=== PATIENT | female | born 1935 | race Hispanic/Latino ===

== ENCOUNTER 2016-11-07 21:43 | Inpatient (IN) | payer MEDICARE, OTHER ==
[2016-11-07 21:52] VITALS: BMI 16.8
--- NOTE | 2016-11-07 22:42 | ED PDOC ---
Arrival/HPI - General Historian: Patient, Snf, EMS <Deng Collier - Last Filed: 11/08/16 01:25> <Ranjit Martinez - Last Filed: 11/08/16 05:44> - General Chief Complaint: Lower Extremity Problem/Injury Time Seen by Provider: 11/07/16 21:56 - History of Present Illness Narrative History of Present Illness (Text): 11/07/16 22:35 81 y/o female hx Afib on coumadin, HTN, HLD, dementia presenting from residential with reports right distal extremity pain, swelling and bruising. Per residential/EMS patient may or may not have sustained a fall at some point in the last few days prior to arrival. Patient is a poor historian due to hx of dementia. Patient denies numbness or tingling to the distal right extremity. She further denies hip or back pain. She is oriented to person. 11/07/16 22:36 (Deng Collier) Past Medical History - Infectious Disease Hx of Infectious Diseases: None - Tetanus Immunization Tetanus Immunization: Unknown - Cardiac Hx Cardiac Disorders: Yes (A-fib) Hx Hypertension: Yes - Pulmonary Hx Respiratory Disorders: No - Neurological Hx Neurological Disorder: No Hx Dementia: Yes - HEENT Hx HEENT Disorder: No - Renal Hx Renal Disorder: No - Endocrine/Metabolic Hx Diabetes Mellitus Type 1: Yes - Hematological/Oncological Hx Blood Disorders: No - Integumentary Hx Dermatological Disorder: No - Musculoskeletal/Rheumatological Hx Arthritis: Yes Hx Osteoporosis: Yes - Gastrointestinal Hx Gastroesophageal Reflux: Yes - Genitourinary/Gynecological Hx Incontinence: Yes - Psychiatric Hx Substance Use: No Other/Comment: dementia - Surgical History Hx Orthopedic Surgery: Yes - Anesthesia Hx Anesthesia Reactions: No Hx Malignant Hyperthermia: No <Deng Collier - Last Filed: 11/08/16 01:25> - Provider Review Nursing Documentation Reviewed: Yes <Ranjit Martinez - Last Filed: 11/08/16 05:44> Family/Social History Smoking Status: Never Smoked Hx Alcohol Use: No Hx Substance Use: No <Deng Collier - Last Filed: 11/08/16 01:25> - Physician Review Nursing Documentation Reviewed: Yes Family/Social History: No Known Family HX <Ranjit Martinez - Last Filed: 11/08/16 05:44> Allergies/Home Meds <Deng Collier - Last Filed: 11/08/16 01:25> <Ranjit Martinez - Last Filed: 11/08/16 05:44> Allergies/Adverse Reactions: Allergies strawberry Adverse Reaction (Verified 11/07/16 21:58) SWELLING Home Medications: Home Meds Medication Instructions Recorded Confirmed Acetaminophen [Tylenol] 650 mg PO Q6H PRN 11/26/15 11/07/16 Calcium Carbonate/Vitamin D3 1 tab PO DAILY 11/26/15 11/07/16 [Os-Richie 500-Vit D3 200 Caplet] Donepezil [Aricept] 10 mg PO HS 11/26/15 11/07/16 Escitalopram [Lexapro] 10 mg PO DAILY 11/26/15 11/07/16 Famotidine [Pepcid] 20 mg PO BID 11/26/15 11/07/16 Furosemide 20 mg PO DAILY 11/26/15 11/26/15 Metoprolol Tartrate [Lopressor] 50 mg PO BID 11/26/15 11/07/16 Ramipril 5 mg PO DAILY 11/26/15 11/07/16 Simvastatin 40 mg PO HS 11/26/15 11/07/16 Warfarin [Coumadin] 2.5 mg PO TTS 11/26/15 11/07/16 Cyproheptadine HCl 4 mg PO TID 11/07/16 11/07/16 Docusate [Colace] 100 mg PO HS 11/07/16 11/07/16 Warfarin Sodium [Jantoven] 5 mg PO SUN 11/07/16 11/07/16 Review of Systems - Review of Systems Systems not reviewed;Unavailable: Dementia Respiratory: absent: SOB Cardiovascular: absent: Chest Pain Musculoskeletal: Other (right distal leg tenderness, hematoma ) Skin: Other (hematoma left medial distal leg ). absent: Skin Lesions, Laceration <Deng Collier - Last Filed: 11/08/16 01:25> Physical Exam Mental Status: No: Alert and Oriented X 3 (oriented to person ) - Systems Exam Head: Present: Atraumatic, Normocephalic Pupils: Present: PERRL Extroacular Muscles: Present: EOMI Conjunctiva: Present: Normal Mouth: Present: Dry Pharnyx: Present: Normal Respiratory/Chest: No: Respiratory Distress, Wheezes, Rales, Rhonchi Cardiovascular: Present: Regular Rate and Rhythm, Normal S1, S2 Abdomen: Present: Normal Bowel Sounds. No: Tenderness, Distention Upper Extremity: Present: Normal Inspection Lower Extremity: Present: CALF TENDERNESS (left). No: Normal Inspection (4x4 cm hematoma left distal leg ) Neurological: Present: Speech Normal Psychiatric: Present: Alert, Normal Insight. No: Oriented x 3 <Deng Collier - Last Filed: 11/08/16 01:25> Vital Signs Temp Pulse Resp BP Pulse Ox 11/08/16 04:00 76 17 114/65 99 11/08/16 03:54 82 11/08/16 03:51 82 18 100 11/08/16 03:42 77 21 118/73 100 11/08/16 01:44 75 20 121/78 99 11/07/16 21:44 97.5 F L 53 L 16 120/85 100 Medical Decision Making <Deng Collier - Last Filed: 11/08/16 01:25> <Ranjit Martinez - Last Filed: 11/08/16 05:44> ED Course and Treatment: 11/07/16 22:49 81 y/o female with hx afib on coumadin, dementia presenting with right distal leg hematoma s/p fall at residential. - right tib-fib xray - PT/INR - routine labs - chest xray - EKG 11/08/16 00:12 -INR 11.00. Hgb 8.6 which is a drop from baseline - chest xray with active disease - right tib-fib xray negative for fracture (Deng Collier) 11/08/16 01:29 Patient seen and evaluated with resident. A 81 year old female who presents to the ed from residential for evaluation of bruising and tenderness to right lower extremity. Agree with HPI, clinical findings, plan and treatment. Coag shows INR of 11. Hgb of 8.6 which is lower than baseline. Patient will be admitted to the hospital under 's service. (Ranjit Martinez) - Lab Interpretations Lab Results: 11/07/16 23:08 11/07/16 23:08 Lab Results 11/07/16 23:08: WBC 12.7 H D, RBC 3.29 L, Hgb 8.6 L, Hct 27.4 L, MCV 83.3, MCH 26.1, MCHC 31.4, RDW 16.6 H, Plt Count 395, MPV 8.6, Gran % 81.6 H, Lymph % ( Auto) 9.5 L, Mathews % (Auto) 6.3 H, Eos % (Auto) 2.4, Baso % (Auto) 0.2, Gran # 10.35 H, Lymph # 1.2, Mathews # 0.8 H, Eos # 0.3, Baso # 0.03, PT > 120.0 H*, INR > 11.00 H*, Sodium 136, Potassium 4.5, Chloride 105, Carbon Dioxide 28, Anion Gap 8 L, BUN 31 H, Creatinine 1.3, Est GFR ( Amer) 48, Est GFR (Non-Af Amer) 39, Random Glucose 91, Calcium 8.6, Total Bilirubin 0.7, AST 52 H, ALT 25 , Alkaline Phosphatase 277 H, Total Protein 6.0, Albumin 2.3 L, Globulin 3.7, Albumin/Globulin Ratio 0.6 L - RAD Interpretation Radiology Orders: 11/07/16 22:31 CHEST ONE VIEW [RAD] Stat TIBIA FIBULA RIGHT [RAD] Stat - Medication Orders Current Medication Orders: Acetaminophen (Tylenol 325mg Tab) 650 mg PO Q6H PRN PRN Reason: Pain, Mild (1-3) Atorvastatin Calcium (Lipitor) 20 mg PO HS GERRI Cyproheptadine HCl (Periactin) 4 mg PO TID GERRI Docusate Sodium (Colace) 100 mg PO HS GERRI Donepezil HCl (Aricept) 10 mg PO HS GERRI Escitalopram Oxalate (Lexapro) 10 mg PO DAILY GERRI Famotidine (Pepcid) 20 mg PO BID GERRI Sodium Chloride (Sodium Chloride 0.9%) 1,000 mls @ 50 mls/hr IV .Q20H GERRI Last Admin: 11/08/16 02:49 Dose: 50 MLS/HR eMAR Start Stop Document 11/08/16 02:49 MR (Rec: 11/08/16 02:57 MR [id number]) Intravenous Solution Start Date 11/08/16 Start Time 02:49 Metoprolol Tartrate (Lopressor) 50 mg PO BID [facility] Non-Formulary Medication (Calcium Carbonate/Vitamin D3 [Os-Richie 500-Vit D3 200 Caplet]) 1 tab PO DAILY GERRI Polysaccharide Iron Complex (Ferrex-150) 150 mg PO DAILY GERRI Ramipril (Altace) 5 mg PO DAILY GERRI Discontinued Medications Phytonadione 10 mg/ Sodium (Chloride) 51 mls @ 100 mls/hr IV ONCE ONE Stop: 11/08/16 00:30 Last Admin: 11/08/16 00:43 Dose: 100 MLS/HR eMAR Start Stop Document 11/08/16 00:43 MR (Rec: 11/08/16 00:44 MR [id number]) Intravenous Solution Start Date 11/08/16 Start Time 00:43 End Date 11/08/16 End time 01:13 Total Infusion Time 30 <Deng Collier - Last Filed: 11/08/16 01:25> - PA / 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 / has examined the patient and agrees with the treatment plan. <Ranjit Martinez - Last Filed: 11/08/16 05:44> - Scribe Statement Marcie Andrews All medical record entries made by the Scribe were at my direction and personally dictated by me. I have reviewed the chart and agree that the record accurately reflects my personal performance of the history, physical exam, medical decision making, and the department course for this patient. I have also personally directed, reviewed, and agree with the discharge instructions and disposition. (Ranjit Martinez) Disposition/Present on Arrival - Present on Arrival History of DVT/PE: No History of Uncontrolled Diabetes: No Urinary Catheter: No History of Decub. Ulcer: No History Surgical Site Infection Following: None <Deng Collier - Last Filed: 11/08/16 01:25> <Ranjit Martinez - Last Filed: 11/08/16 05:44> - Disposition Disposition: HOSPITALIZED
[2016-11-07 23:21] LABS: ADD MANUAL DIFF? NO
[2016-11-07 23:26] LABS: BASO # 0.03 K/mm3 (0.0-2.0); BASO % 0.2 % (0.0-3.0); EOS # 0.3 (0.0-0.7); EOS % 2.4 % (1.5-5.0); GRAN # 10.35 (1.4-6.5); GRAN % 81.6 % (50.0-68.0); HEMATOCRIT 27.4 % (36.0-48.0); LYMPH # 1.2 (1.2-3.4); LYMPH % 9.5 % (22.0-35.0); MEAN CELL VOLUME 83.3 fL (80.0-105.0); MEAN CORPUSCULAR HEMOGLOBIN 26.1 pg (25.0-35.0); MEAN CORPUSCULAR HGB CONC 31.4 g/dl (31.0-37.0); MEAN PLATELET VOLUME 8.6 fl (7.0-11.0); MONO # 0.8 (0.1-0.6); MONO % 6.3 % (1.0-6.0); PLATELET COUNT 395 10^3/uL (120.0-450.0); RED CELL DISTRIBUTION WIDTH 16.6 % (11.5-14.5); WHITE BLOOD COUNT 12.7 10^3/ul (4.5-11.0)
[2016-11-07 23:33] LABS: ALB/GLOB RATIO 0.6 (1.1-1.8); BILIRUBIN,TOTAL 0.7 mg/dL (0.2-1.3); CALCIUM 8.6 mg/dL (8.4-10.5); POTASSIUM 4.5 mmol/L (3.6-5.0)
[2016-11-07 23:59] LABS: INR > 11.00 (0.93-1.08)
[2016-11-08] MEDS ORDERED: Phytonadione 10 MG in Sodium Chloride 0.9% 50 ML IV ONE
--- NOTE | 2016-11-08 02:38 | CP.PCM.HP ---
History of Present Illness - History of Present Illness History of Present Illness: CC: Left leg hematoma HPI: This is a 81 yo F with PMH of Afib on coumadin, HTN, HLD, and dementia who was [facility] from her [facility] due to newly noticed hematoma on posterior portion of left leg. HPI and ROS limited due to patient's dementia ( oriented to self only); information provided from documentation from prison sent with patient. No witnessed falls as per documentation, but patient has poor ambulation/weight bearing. Patient has no recollection of falls or traumatic event. Labs in the ED were notable for an INR greater than 11.0 and a Hgb of 8.6 (baseline per prior charting is 10-11). Patient denies any complaints currently. PMH: Afib on coumadin, HTN, HLD, dementia PSH: unknown PMD: Dr. Farrell Present on Admission - Present on Admission Any Indicators Present on Admission: No History of DVT/PE: No History of Uncontrolled Diabetes: No Review of Systems - Review of Systems Systems not reviewed;Unavailable: Dementia Past Patient History - Infectious Disease Hx of Infectious Diseases: None - Tetanus Immunizations Tetanus Immunization: Unknown - Past Medical History & Family History Past Medical History?: Yes - Past Social History Smoking Status: Never Smoked - CARDIAC Hx Cardiac Disorders: Yes (A-fib) Hx Hypertension: Yes - PULMONARY Hx Respiratory Disorders: No - NEUROLOGICAL Hx Neurological Disorder: No Hx Dementia: Yes - HEENT Hx HEENT Problems: No - RENAL Hx Chronic Kidney Disease: No - ENDOCRINE/METABOLIC Hx Diabetes Mellitus Type 1: Yes - HEMATOLOGICAL/ONCOLOGICAL Hx Blood Disorders: No - INTEGUMENTARY Hx Dermatological Problems: No - MUSCULOSKELETAL/RHEUMATOLOGICAL Hx Arthritis: Yes Hx Osteoporosis: Yes - GASTROINTESTINAL Hx Gastroesophageal Reflux: Yes - GENITOURINARY/GYNECOLOGICAL Hx Incontinence: Yes - PSYCHIATRIC Hx Substance Use: No Other/Comment: dementia - SURGICAL HISTORY Hx Orthopedic Surgery: Yes - ANESTHESIA Hx Anesthesia Reactions: No Hx Malignant Hyperthermia: No Meds Allergies/Adverse Reactions: Allergies Allergy/AdvReac Type Severity Reaction Status Date / Time strawberry AdvReac SWELLING Verified 11/07/16 21:58 Physical Exam - Constitutional Appears: Well, Non-toxic, No Acute Distress, Confused - Head Exam Head Exam: ATRAUMATIC, NORMAL INSPECTION, NORMOCEPHALIC - Eye Exam Eye Exam: Normal appearance, PERRL. absent: Conjunctival injection, Scleral icterus Pupil Exam: NORMAL ACCOMODATION, PERRL. absent: Fixed, Irregular, Unequal Additional comments: Does not follow finger for EOMI testing, but is able to move eyes in all [place] to avoid direct light challenge - ENT Exam ENT Exam: Mucous Membranes Moist - Neck Exam Neck exam: Negative for: Lymphadenopathy, Thyromegaly - Respiratory Exam Respiratory Exam: Clear to Auscultation Bilateral, NORMAL BREATHING PATTERN. absent: Accessory Muscle Use, Chest Wall Tenderness, Decreased Breath Sounds, Rales, Rhonchi, Wheezes - Cardiovascular Exam Cardiovascular Exam: REGULAR RHYTHM, RRR, +S1, +S2. absent: Bradycardia, Tachycardia, +S4 - GI/Abdominal Exam GI & Abdominal Exam: Normal Bowel Sounds, Soft. absent: Diminished Bowel Sounds , Hyperactive Bowel Sounds, Hypoactive Bowel Sounds, Tenderness - Rectal Exam Rectal Exam: Deferred - Extremities Exam Additional comments: Right leg: -No gross deformity -trace pitting edema extending from foot into mid alcala -+2 dorsalis pedis -no calf tenderness Left leg: -trace to +1 pitting edema (greater than in right leg) -hematoma along posterior and medial aspect of lower calf, approximately 6cm wide and 8-9cm height, all dark blood, no pulsation palpated in hematoma -+1 dorsalis pedis pulse -tenderness at and immediately around hematoma, no tenderness elsewhere in left lower extremity - Neurological Exam Neurological exam: Alert Additional comments: oriented to self only - Psychiatric Exam Psychiatric exam: Normal Affect, Normal Mood - Skin Skin Exam: Dry, Intact, Normal Color, Warm Additional comments: except for hematoma, as noted in extremity exam Results - Vital Signs Recent Vital Signs: Last Vital Signs Temp 97.5 F L 11/07/16 21:44 Pulse 53 L 11/07/16 21:44 Resp 16 11/07/16 21:44 BP 120/85 11/07/16 21:44 Pulse Ox 100 11/07/16 21:44 - Labs Result Diagrams: 11/07/16 23:08 11/07/16 23:08 Labs: Laboratory Results - last 24 hr 11/07/16 23:08 WBC 12.7 H D RBC 3.29 L Hgb 8.6 L Hct 27.4 L MCV 83.3 MCH 26.1 MCHC 31.4 RDW 16.6 H Plt Count 395 MPV 8.6 Gran % 81.6 H Lymph % (Auto) 9.5 L [place] % (Auto) 6.3 H Eos % (Auto) 2.4 Baso % (Auto) 0.2 Gran # 10.35 H Lymph # 1.2 [place] # 0.8 H Eos # 0.3 Baso # 0.03 PT > 120.0 H* INR > 11.00 H* Sodium 136 Potassium 4.5 Chloride 105 Carbon Dioxide 28 Anion Gap 8 L BUN 31 H Creatinine 1.3 Est GFR ( Amer) 48 Est GFR (Non-Af Amer) 39 Random Glucose 91 Calcium 8.6 Total Bilirubin 0.7 AST 52 H ALT 25 Alkaline Phosphatase 277 H Total Protein 6.0 Albumin 2.3 L Globulin 3.7 Albumin/Globulin Ratio 0.6 L Assessment & Plan - Assessment and Plan (Free Text) Assessment: This is a 81 yo F with PMH of Afib on coumadin, HTN, HLD, and dementia who was sent from her prison due to newly noticed hematoma on posterior portion of left leg. She is being admitted for hematoma in the setting of supratherapeutic INR (>11.0) in need of reversal and possible need for blood transfusions. Plan: 1) Hematoma with Supratherapeutic INR -Stable hematoma in posterior of left lower extremity, no reported trauma as per prison documentation, but poor gait/weight bearing noted -PT/OT consulted -Holding home Warfarin, given 1 dose of Vit K -Type and Screen ordered, FFP 1 unit ordered -repeat coags in AM, further Vit K/FFP based upon repeat coags or if patient develops acute bleed -Hgb 8.6, baseline per prior charting 10-11; hemodynamically stable currently, will repeat CBC in AM, no need to transfuse pRBCs at this time -HR and BP stable currently, continue to monitor 2) Afib on coumadin -Currently in NSR on exam, Sinus marilou on EKG in ED -Supratherapeutic INR on labs, holding home warfarin -continuing other home cardiac medications 3) HTN -pressures stable, continuing home anti-hypertensives 4) Dementia -continue home meds Dispo: Admitted as inpatient to telemetry for reversal of supratherapeutic INR and further transfusions as needed FEN: Heart-healthy diet, NS 50cc/hr Access: Peripheral IV Consults: PT/OT Ppx: Protonix for GI, SCD for DVT Code Status: DNR/DNI per charting from halfway Patient discussed with attending, Dr. Amaya - Date & Time Date: 11/08/16 Time: 03:45 Decision To Admit - Pt Status Changed To: Hospital Disposition Of: Inpatient Admission - Admit Certification Admit to Inpatient:: After my assessment, the patient will require hospitalization for at least two midnights. This is because of the severity of symptoms shown, intensity of services needed, and/or the medical risk in this patient being treated as an outpatient. - . Bed Request Type: Telemetry
[2016-11-08] MEDS: Sodium Chloride 0.9% 1,000 ML IV SCH ×2 (02:49→22:30)
--- NOTE | 2016-11-08 07:42 | RAD ---
PROCEDURE: CHEST RADIOGRAPH, 1 VIEW HISTORY: routine COMPARISON: 04/11/2016 at 9:30 p.m. FINDINGS: LUNGS: Clear. PLEURA: No pneumothorax . Interval small right pleural effusion Pleural fluid seen. CARDIOVASCULAR: Normal. Left axillary vascular stent -similar OSSEOUS STRUCTURES: Severe dextroscoliosis, generalized osteopenia, multiple old healed right rib fractures and high-riding right humeral head consistent right chronic rotator cuff pathology. Left shoulder prosthesis in place-similar VISUALIZED UPPER ABDOMEN: Normal. OTHER FINDINGS: Probable hernia -similar IMPRESSION: Interval small right pleural effusion. Other findings as above similar
--- NOTE | 2016-11-08 07:44 | RAD ---
PROCEDURE: Radiographs of the right tibia and fibula. HISTORY: hx trauma COMPARISON: None available. TECHNIQUE: Frontal and lateral views obtained. FINDINGS: BONES: No fracture or destructive lesion. Generalized osteopenia suggested JOINT SPACES: Unremarkable. OTHER FINDINGS: There is diffuse subcutaneous reticulated edema suggested. Few faint vascular calcifications are noted IMPRESSION: No fracture.
[2016-11-08 08:35] LABS: ADD MANUAL DIFF? NO
[2016-11-08 08:41] LABS: BASO % 0.2 % (0.0-3.0); EOS % 0.3 % (1.5-5.0); RED CELL DISTRIBUTION WIDTH 16.4 % (11.5-14.5); WHITE BLOOD COUNT 12.4 10^3/ul (4.5-11.0)
[2016-11-08 08:49] LABS: INR 1.92 (0.93-1.08); PARTIAL THROMBOPLASTIN TIME 42.9 Seconds (23.7-30.8)
[2016-11-08 08:53] LABS: ALB/GLOB RATIO 0.7 (1.1-1.8); BILIRUBIN,TOTAL 0.8 mg/dL (0.2-1.3); CALCIUM 8.7 mg/dL (8.4-10.5); MAGNESIUM 2.1 mg/dL (1.7-2.2); PHOSPHOROUS 3.6 mg/dL (2.5-4.5); POTASSIUM 4.5 mmol/L (3.6-5.0); TOTAL PROTEIN 5.7 g/dL (5.8-8.3)
[2016-11-08 08:59] LABS: BASO # 0.03 K/mm3 (0.0-2.0); GRAN # 11.01 (1.4-6.5); GRAN % 88.8 % (50.0-68.0); LYMPH # 0.7 (1.2-3.4); LYMPH % 5.5 % (22.0-35.0); MEAN CELL VOLUME 82.7 fL (80.0-105.0); MEAN CORPUSCULAR HEMOGLOBIN 26.4 pg (25.0-35.0); MEAN CORPUSCULAR HGB CONC 31.9 g/dl (31.0-37.0); MEAN PLATELET VOLUME 8.4 fl (7.0-11.0); MONO # 0.6 (0.1-0.6); MONO % 5.2 % (1.0-6.0); PLATELET COUNT 348 10^3/uL (120.0-450.0)
[2016-11-08 09:14] LABS: HEMATOCRIT 22.9 % (36.0-48.0)
[2016-11-08] MEDS: [UNRECOGNIZED DRUG - OTHER] PO SCH (09:49)
[2016-11-08] MEDS: VITAMIN D3 PO SCH (09:49)
[2016-11-08] MEDS: Iron Complex Polysacch 150mg Cap PO SCH (09:49)
[2016-11-08] MEDS: CALCIUM CARBONATE PO SCH (09:49)
[2016-11-08 11:06] LABS: URINE BILIRUBIN NEGATIVE (NEGATIVE); URINE BLOOD TRACE-INTACT (NEGATIVE); URINE GLUCOSE (UA) NEGATIVE (NEGATIVE); URINE KETONE NEGATIVE (NEGATIVE); URINE LEUKOCYTE ESTERASE SMALL Leu/uL (NEGATIVE); URINE PROTEIN 30 mg/dL (<30 mg/dL); URINE UROBILINOGEN 0.2 E.U./dL (<1 E.U./dL)
[2016-11-08 11:13] LABS: URINE APPEARANCE CLOUDY (CLEAR); URINE COLOR YELLOW (YELLOW)
[2016-11-08 11:15] LABS: URINE BACTERIA MANY (NEG); URINE RBC 0 - 2 /hpf (0-2)
--- NOTE | 2016-11-08 12:25 | CP.PCM.CON ---
History of Present Illness - History of Present Illness History of Present Illness: Surgery Consult note for Dr Espitia: 81 F with PMHx of Afib on coumadin, HTN, HLD, and dementia presents from skilled nursing with L calf hematoma. HPI is limited due to patient dementia therefore HPI obtained from previous notes and nurses. In the skilled nursing it was noticed that the patient had a L posterior calf hematoma and patient was sent to the hospital for further evaluation. No reported trauma or falls. Patient is not able to ambulate well. Denies any associated pain. In the ED it was noted that patient had an INR of 11. 1 unit of FFP and vit K was administered. Current INR is 1.92. Patient Hb is 7.3 and 1 unit of PRBC being administered now. Tib/Fib Xray shows no fractures. ROS unobtainable due to advanced dementia. PMH: Afib on coumadin, HTN, HLD, dementia PSH: unknown ALL: stawberry Med: refer to MAR Review of Systems - Review of Systems Systems not reviewed;Unavailable: Dementia Past Patient History - Infectious Disease Hx of Infectious Diseases: None - Tetanus Immunizations Tetanus Immunization: Unknown - Past Medical History & Family History Past Medical History?: Yes - Past Social History Smoking Status: Unknown If Ever Smoked - CARDIAC Hx Cardiac Disorders: Yes (A-fib) Hx Hypertension: Yes - PULMONARY Hx Respiratory Disorders: No - NEUROLOGICAL Hx Neurological Disorder: No Hx Dementia: Yes - HEENT Hx HEENT Problems: No - RENAL Hx Chronic Kidney Disease: No - ENDOCRINE/METABOLIC Hx Diabetes Mellitus Type 1: Yes - HEMATOLOGICAL/ONCOLOGICAL Hx Blood Disorders: No - INTEGUMENTARY Hx Dermatological Problems: No - MUSCULOSKELETAL/RHEUMATOLOGICAL Hx Arthritis: Yes Hx Falls: Yes Hx Osteoporosis: Yes - GASTROINTESTINAL Hx Gastroesophageal Reflux: Yes - GENITOURINARY/GYNECOLOGICAL Hx Incontinence: Yes - PSYCHIATRIC Other/Comment: dementia - SURGICAL HISTORY Hx Orthopedic Surgery: Yes - ANESTHESIA Hx Anesthesia Reactions: No Hx Malignant Hyperthermia: No Meds Allergies/Adverse Reactions: Allergies Allergy/AdvReac Type Severity Reaction Status Date / Time strawberry AdvReac SWELLING Verified 11/07/16 21:58 - Medications Medications: Current Medications Acetaminophen (Tylenol 325mg Tab) 650 mg PO Q6H PRN PRN Reason: Pain, Mild (1-3) Atorvastatin Calcium (Lipitor) 20 mg PO HS GERRI Cyproheptadine HCl (Periactin) 4 mg PO TID GERRI Last Admin: 11/08/16 09:55 Dose: 4 mg Docusate Sodium (Colace) 100 mg PO HS [facility] Donepezil HCl (Aricept) 10 mg PO HS COUNT INCLUDES [facility] Escitalopram Oxalate (Lexapro) 10 mg PO DAILY [facility]CLUD[facility] Last Admin: 11/08/16 09:50 Dose: 10 mg Famotidine (Pepcid) 20 mg PO BID [facility] Last Admin: 11/08/16 09:50 Dose: 20 mg Sodium Chloride (Sodium Chloride 0.9%) 1,000 mls @ 50 mls/hr IV .Q20H COUNT INCLUDES [facility] Last Admin: 11/08/16 02:49 Dose: 50 mls/hr Ceftriaxone Sodium (Rocephin 1 Gram Ivpb) 100 mls @ 100 mls/hr IVPB DAILY [facility] INCLUDES [facility] PRN Reason: Protocol Metoprolol Tartrate (Lopressor) 50 mg PO BID [facility]CLUD[facility] Last Admin: 11/08/16 09:50 Dose: 50 mg Non-Formulary Medication (Calcium Carbonate/Vitamin D3 [Os-Richie 500-Vit D3 200 Caplet]) 1 tab PO DAILY [facility] Last Admin: 11/08/16 09:49 Dose: Not Given Polysaccharide Iron Complex (Ferrex-150) 150 mg PO DAILY [facility]CLUD[facility] Last Admin: 11/08/16 09:49 Dose: 150 mg Ramipril (Altace) 5 mg PO DAILY [facility] Last Admin: 11/08/16 09:49 Dose: 5 mg Physical Exam - Constitutional Appears: No Acute Distress - Respiratory Exam Respiratory Exam: Clear to Auscultation Bilateral, NORMAL BREATHING PATTERN - Cardiovascular Exam Cardiovascular Exam: REGULAR RHYTHM, +S1, +S2 - GI/Abdominal Exam GI & Abdominal Exam: Normal Bowel Sounds, Soft. absent: Tenderness - Extremities Exam Extremities exam: Positive for: tenderness Additional comments: L lower lex5 cm fluctuant area in posterior calf, FROM, sensation intact, tender to palpation, DP/PT pulses non palpable. PT pulse dopplerable. - Neurological Exam Neurological exam: Alert Results - Vital Signs Recent Vital Signs: Last Vital Signs Temp 97.9 F 11/08/16 11:59 Pulse 67 11/08/16 11:59 Resp 20 11/08/16 11:59 BP 147/63 11/08/16 11:59 Pulse Ox 98 11/08/16 11:59 - Labs Result Diagrams: 11/08/16 08:30 11/08/16 08:30 Labs: Laboratory Results - last 24 hr 11/08/16 11/08/16 11/08/16 01:10 08:30 10:45 WBC 12.4 H RBC 2.77 L Hgb 7.3 L Hct 22.9 L MCV 82.7 MCH 26.4 MCHC 31.9 RDW 16.4 H Plt Count 348 MPV 8.4 Gran % 88.8 H Lymph % (Auto) 5.5 L [place] % (Auto) 5.2 Eos % (Auto) 0.3 L Baso % (Auto) 0.2 Gran # 11.01 H Lymph # 0.7 L [place] # 0.6 Eos # 0.0 Baso # 0.03 PT 20.7 H INR 1.92 H APTT 42.9 H Sodium 137 Potassium 4.5 Chloride 106 Carbon Dioxide 27 Anion Gap 9 L BUN 31 H Creatinine 1.3 Est GFR ( Amer) 48 Est GFR (Non-Af Amer) 39 Random Glucose 93 Calcium 8.7 Phosphorus 3.6 Magnesium 2.1 Total Bilirubin 0.8 AST 48 H ALT 18 Alkaline Phosphatase 244 H Total Protein 5.7 L Albumin 2.3 L Globulin 3.4 Albumin/Globulin Ratio 0.7 L Urine Color Yellow Urine Appearance Cloudy Urine pH 6.0 Ur Specific [place] 1.020 Urine Protein 30 H Urine Glucose (UA) Negative Urine Ketones Negative Urine Blood Trace-intact H Urine Nitrate Positive H Urine Bilirubin Negative Urine Urobilinogen 0.2 Ur Leukocyte Esterase Small H Urine RBC 0 - 2 Urine WBC 5 - 10 Ur Epithelial Cells 4 - 5 Urine Bacteria Many Blood Type B POSITIVE Antibody Screen Negative Crossmatch See Detail BBK History Checked Patient has bt Assessment & Plan - Assessment and Plan (Free Text) Assessment: 81 F presents with L calf hamatoma. - F/u CT and US of L lower ext - No plan for surgery at this time - Supra therapeutic INR of >11 now resolved 1.92 - Cont to monitor for changes - Will discuss further recs with Dr Omkar Gonzalez IM Resident PGY-1
--- NOTE | 2016-11-08 14:39 | CT ---
PROCEDURE: CT of the lower extremity HISTORY: left leg below knee hematoma COMPARISON: TECHNIQUE: CT of the lower extremities was performed from the knee to the ankle bilaterally. Coronal reconstructions and sagittal reconstructions were provided FINDINGS: There is a large hematoma in the left proximal calf in the region of the medial gastrocnemius. This measures 12 cm in length as seen on coronal image 51. On axial image 87 it measures 6.6 cm wide by 4.0 cm AP. There is subcutaneous edema bilaterally. There is no evidence of fracture. IMPRESSION: Large hematoma in the left calf
[2016-11-08 15:29] LABS: HEMATOCRIT 29.9 % (36.0-48.0); MEAN CORPUSCULAR HEMOGLOBIN 27.5 pg (25.0-35.0); MEAN CORPUSCULAR HGB CONC 32.8 g/dl (31.0-37.0); MEAN PLATELET VOLUME 8.5 fl (7.0-11.0); RED CELL DISTRIBUTION WIDTH 15.9 % (11.5-14.5); WHITE BLOOD COUNT 14.5 10^3/ul (4.5-11.0)
[2016-11-08 15:35] LABS: INR 1.61 (0.93-1.08)
--- NOTE | 2016-11-08 15:40 | US ---
PROCEDURE: HISTORY: left leg below knee hematoma COMPARISON: CT lower extremity without contrast 11/08/2016 TECHNIQUE: Real-time ultrasound scanning of the area of concern left lower leg with Doppler was applied in the mid calf FINDINGS: CT describes a large hematoma in the left proximal calf in the region of the medial gastrocnemius. There is heterogeneous partly cystic partly solid appearing mass on this ultrasound study approximately 12.8 x 6.4 x 6.7 cm. No vascularity seen. This is similar to that which was a described on this CT IMPRESSION: Heterogeneous left lower leg posterior calf mass nonspecific consistent with a hematoma. No vascularity noted. Correlate clinically if this is not consistent with the clinical history, consider MRI of the left lower leg without with contrast enhancement.
[2016-11-08] MEDS: cefTRIAXone 1 gm 100 ML IVPB SCH (15:50)
--- NOTE | 2016-11-08 16:30 | CARD ---
APPROVED REPORT EKG Measurement Heart [id number] [place] 106P8 [id number] <Conclusion> Sinus bradycardia with short [place] STTW changes
[2016-11-09 07:54] LABS: ADD MANUAL DIFF? NO
--- NOTE | 2016-11-09 08:02 | CP.PCM.PN ---
Subjective - Date & Time of Evaluation Date of Evaluation: 11/09/16 Time of Evaluation: 07:59 - Subjective Subjective: SURGERY PROGRESS NOTE FOR DR. BENNETT 81F seen and examined at bedside. BURT. Patient resting comfortably. Has dementia. Objective - Vital Signs/Intake and Output Vital Signs (last 24 hours): Temp Pulse Resp BP Pulse Ox 98.9 F 52 L 17 99/53 L 100 11/09/16 00:01 11/09/16 06:00 11/09/16 06:00 11/09/16 06:00 11/09/16 06:00 - Medications Medications: Current Medications Acetaminophen (Tylenol 325mg Tab) 650 mg PO Q6H PRN PRN Reason: Pain, Mild (1-3) Atorvastatin Calcium (Lipitor) 20 mg PO HS COUNTS INCLUDE 234 BEDS AT THE [facility] Last Admin: 11/08/16 21:58 Dose: 20 mg Cyproheptadine HCl (Periactin) 4 mg PO TID COUNTS INCLUDE 234 BEDS AT THE [facility] Last Admin: 11/08/16 17:40 Dose: 4 mg Docusate Sodium (Colace) 100 mg PO HS COUNTS INCLUDE 234 BEDS AT THE [facility] Last Admin: 11/08/16 21:59 Dose: 100 mg Donepezil HCl (Aricept) 10 mg PO HS COUNTS INCLUDE 234 BEDS AT THE [facility] Last Admin: 11/08/16 21:59 Dose: 10 mg Escitalopram Oxalate (Lexapro) 10 mg PO DAILY COUNTS INCLUDE 234 BEDS AT THE [facility] Last Admin: 11/08/16 09:50 Dose: 10 mg Famotidine (Pepcid) 20 mg PO BID COUNTS INCLUDE 234 BEDS AT THE [facility] Last Admin: 11/08/16 17:39 Dose: 20 mg Sodium Chloride (Sodium Chloride 0.9%) 1,000 mls @ 50 mls/hr IV .Q20H COUNTS INCLUDE 234 BEDS AT THE [facility] Last Admin: 11/08/16 22:30 Dose: 50 mls/hr Ceftriaxone Sodium (Rocephin 1 Gram Ivpb) 100 mls @ 100 mls/hr IVPB DAILY COUNTS INCLUDE 234 BEDS AT THE [facility] PRN Reason: Protocol Last Admin: 11/08/16 15:50 Dose: 100 mls/hr Metoprolol Tartrate (Lopressor) 50 mg PO BID COUNTS INCLUDE 234 BEDS AT THE [facility] Last Admin: 11/08/16 17:39 Dose: 50 mg Non-Formulary Medication (Calcium Carbonate/Vitamin D3 [Os-Richie 500-Vit D3 200 Caplet]) 1 tab PO DAILY COUNTS INCLUDE 234 BEDS AT THE [facility] Last Admin: 11/08/16 09:49 Dose: Not Given Polysaccharide Iron Complex (Ferrex-150) 150 mg PO DAILY COUNTS INCLUDE 234 BEDS AT THE [facility] Last Admin: 11/08/16 09:49 Dose: 150 mg Ramipril (Altace) 5 mg PO DAILY COUNTS INCLUDE 234 BEDS AT THE [facility] Last Admin: 11/08/16 09:49 Dose: 5 mg - Labs Labs: 11/08/16 15:15 11/08/16 08:30 PT 17.4 Seconds (9.9-11.8) H 11/08/16 15:15 INR 1.61 (0.93-1.08) H 11/08/16 15:15 APTT 42.9 Seconds (23.7-30.8) H 11/08/16 08:30 - Constitutional Appears: Non-toxic, No Acute Distress - Head Exam Head Exam: ATRAUMATIC - Respiratory Exam Respiratory Exam: Clear to Ausculation Bilateral, NORMAL BREATHING PATTERN - Cardiovascular Exam Cardiovascular Exam: REGULAR RHYTHM, +S1, +S2 - Extremities Exam Extremities Exam: Calf Tenderness (left calf tenderness, left calf bruising), Tenderness Additional comments: - pulses palpable in the right leg - Audible pulses on left leg Assessment and Plan - Assessment and Plan (Free Text) Assessment: 81 F presents with L calf hematoma Plan: - F/u CT and US of L lower ext - No plan for surgery at this time - Initially supra therapeutic INR of >11 now resolved 1.92 - Continue to monitor for changes Further red discuss with Dr. Omkar Chapa, PGY1
[2016-11-09 08:06] LABS: INR 1.44 (0.93-1.08)
[2016-11-09 08:08] LABS: BASO # 0.02 K/mm3 (0.0-2.0); BASO % 0.1 % (0.0-3.0); EOS # 0.2 (0.0-0.7); EOS % 1.4 % (1.5-5.0); GRAN # 11.46 (1.4-6.5); GRAN % 83.8 % (50.0-68.0); HEMATOCRIT 29.6 % (36.0-48.0); LYMPH # 0.9 (1.2-3.4); LYMPH % 6.7 % (22.0-35.0); MEAN CELL VOLUME 83.9 fL (80.0-105.0); MEAN CORPUSCULAR HEMOGLOBIN 27.2 pg (25.0-35.0); MEAN CORPUSCULAR HGB CONC 32.4 g/dl (31.0-37.0); MEAN PLATELET VOLUME 8.7 fl (7.0-11.0); MONO # 1.1 (0.1-0.6); PLATELET COUNT 305 10^3/uL (120.0-450.0); RED CELL DISTRIBUTION WIDTH 16.1 % (11.5-14.5); WHITE BLOOD COUNT 13.7 10^3/ul (4.5-11.0)
[2016-11-09 08:17] LABS: ALB/GLOB RATIO 0.7 (1.1-1.8); BILIRUBIN,TOTAL 0.7 mg/dL (0.2-1.3); CALCIUM 8.4 mg/dL (8.4-10.5); POTASSIUM 4.6 mmol/L (3.6-5.0); TOTAL PROTEIN 5.8 g/dL (5.8-8.3)
[2016-11-09] MEDS: cefTRIAXone 1 gm 100 ML IVPB SCH (10:07)
[2016-11-09] MEDS: [UNRECOGNIZED DRUG - OTHER] PO SCH (10:11)
[2016-11-09] MEDS: CALCIUM CARBONATE PO SCH (10:11)
[2016-11-09] MEDS: Iron Complex Polysacch 150mg Cap PO SCH (10:11)
[2016-11-09] MEDS: VITAMIN D3 PO SCH (10:11)
--- NOTE | 2016-11-09 10:49 | CON ---
DATE: 11/09/2016 REASON FOR CONSULTATION: Coagulopathy and anemia. HISTORY OF PRESENT ILLNESS: The patient is an 81-year-old female with past medical history significa nt for multiple medical problems including chronic atrial fibrillation, on Coumadin, hypertension, hy perlipidemia, dementia, who was sent from the longterm due to a newly noticed hematoma on the pos terior portion of left leg. She has had multiple falls in the past. Once again is status post fall and found to have an INR greater than 11 and a hemoglobin of 8.6. Baseline prior was 10-11. She is unable to answer any questions. Oriented to place, but not to time or person. She denies any active bleeding otherwise. No fevers, no chills. Unable to answer any questions regarding review of syste ms. PAST MEDICAL HISTORY: As above, noted for hyperlipidemia, atrial fibrillation on anticoagulation, hy perlipidemia, dementia. MEDICATIONS AT HOME: Include Altace, Aricept, calcium, Colace, Ferrex, Lexapro, Lipitor, Lopressor, Pepcid, Periactin, Rocephin and normal saline. ALLERGIES: She has no known drug allergies. ALLERGIC TO STRAWBERRIES. SOCIAL HISTORY: Noncontributory. She is not a smoker, no alcohol use, no drug use. Lives in a [facility] home. FAMILY HISTORY: Otherwise, noncontributory. REVIEW OF SYSTEMS: Unobtainable as patient is demented. PHYSICAL EXAMINATION: VITAL SIGNS: Reveal a temperature of 98.9, pulse of 61, respiratory rate of 18, and blood pressure 1 43/58. GENERAL: The patient is an elderly, cachectic appearing, female, lying in bed, in no acute distress. HEAD AND NECK: Normocephalic, atraumatic. EYES: Pupils equal, round, reactive to light and accommodation. Extraocular muscles are intact. Th ere is pallor, no icterus is noted. NECK: Supple with no adenopathy, no JVD, no thyromegaly. LUNGS: Clear to auscultation bilaterally with no rales or rhonchi. CARDIOVASCULAR: S1, S2 is heard. ABDOMEN: Positive bowel sounds, soft, nontender, nondistended, no organomegaly is palpated. EXTREMITIES: There is a large hematoma noted on the left posterior part of the leg. NEUROLOGIC: The patient is alert, awake, but not oriented to person, place or time. White count 13.7, hemoglobin is 9.6, hematocrit 29.6, MCV of 83.9, RDW is high at 15.1 and a platelet count of 305. Chemistries are within normal limits. Her BUN and creatinine is 29 and 1.2, estimate d GFR is 43. AST is elevated at 50, alkaline phosphatase is elevated at 245, otherwise within normal limits. Coag studies reveal an INR of 1.4 post FFP. She had an INR of 11 on admission. Stool for occult blood is negative. ASSESSMENT AND PLAN: Elderly female with normocytic normochromic anemia with known chronic renal ins ufficiency, likely related to chronic kidney disease. We will check iron studies, B12, folate, also a serum protein electrophoresis on this patient. Hold off on any medications at this point. Her coa gulopathy has been reversed with fresh frozen plasma. She will need anticoagulation again for atrial fibrillation. As long as there is no active bleeding, patient may resume anticoagulation. Thank you for the consult. We will follow. Fela Sanchez MD cc: [id number] TT: 11/09/2016 10:48:22 Confirmation # [id number] Dictation # [id number]
[2016-11-09 11:05] LABS: RETIC% 1.68 % (0.5-1.5)
[2016-11-09 12:20] LABS: IRON 20 ug/dL (45-180)
[2016-11-09 17:49] LABS: FOLATE 9.6 ng/mL
--- NOTE | 2016-11-09 18:04 | CP.PCM.PN ---
Subjective - Date & Time of Evaluation Date of Evaluation: 11/09/16 Time of Evaluation: 11:00 - Subjective Subjective: PGY-1 Progress note. Patient seen and examined at bedside. No acute distress. Nurse reports dark stool yesterday, sample was sent for blood occult. Overnight nurse reports no acut events. Patient does not have any complaint however she is confused about where she is, only oriented to herself. She denies chest pain, sob, n/v/d/c, abd pain. She does have pain in left lower extremity with movement. Objective - Vital Signs/Intake and Output Vital Signs (last 24 hours): Temp Pulse Resp BP Pulse Ox 98.4 F 55 L 16 147/72 98 11/09/16 16:00 11/09/16 17:09 11/09/16 16:00 11/09/16 16:00 11/09/16 16:00 Intake and Output: 11/09/16 11/09/16 06:59 18:59 Intake Total 750 Balance 750 - Medications Medications: Current Medications Acetaminophen (Tylenol 325mg Tab) 650 mg PO Q6H PRN PRN Reason: Pain, Mild (1-3) Atorvastatin Calcium (Lipitor) 20 mg PO HS [facility] Last Admin: 11/08/16 21:58 Dose: 20 mg Cyproheptadine HCl (Periactin) 4 mg PO TID [facility] Last Admin: 11/09/16 17:15 Dose: 4 mg Docusate Sodium (Colace) 100 mg PO HS [facility] Last Admin: 11/08/16 21:59 Dose: 100 mg Donepezil HCl (Aricept) 10 mg PO HS [facility] Last Admin: 11/08/16 21:59 Dose: 10 mg Escitalopram Oxalate (Lexapro) 10 mg PO DAILY [facility] Last Admin: 11/09/16 10:09 Dose: 10 mg Famotidine (Pepcid) 20 mg PO BID [facility] Last Admin: 11/09/16 17:15 Dose: 20 mg Sodium Chloride (Sodium Chloride 0.9%) 1,000 mls @ 50 mls/hr IV .Q20H [facility] Last Admin: 11/08/16 22:30 Dose: 50 mls/hr Ceftriaxone Sodium (Rocephin 1 Gram Ivpb) 100 mls @ 100 mls/hr IVPB DAILY [facility] PRN Reason: Protocol Last Admin: 11/09/16 10:07 Dose: 100 mls/hr Metoprolol Tartrate (Lopressor) 50 mg PO BID [facility] Last Admin: 11/09/16 17:09 Dose: Not Given Non-Formulary Medication (Calcium Carbonate/Vitamin D3 [Os-Richie 500-Vit D3 200 Caplet]) 1 tab PO DAILY [facility] Last Admin: 11/09/16 10:11 Dose: Not Given Polysaccharide Iron Complex (Ferrex-150) 150 mg PO DAILY [facility] Last Admin: 11/09/16 10:11 Dose: 150 mg Ramipril (Altace) 5 mg PO DAILY [facility] Last Admin: 11/09/16 10:09 Dose: 5 mg - Labs Labs: 11/09/16 07:45 11/09/16 07:45 PT 15.6 Seconds (9.9-11.8) H 11/09/16 07:45 INR 1.44 (0.93-1.08) H 11/09/16 07:45 APTT 42.9 Seconds (23.7-30.8) H 11/08/16 08:30 - Constitutional Appears: Well, No Acute Distress - Head Exam Head Exam: ATRAUMATIC, NORMOCEPHALIC - Eye Exam Eye Exam: Normal appearance - ENT Exam ENT Exam: Mucous Membranes Dry - Respiratory Exam Respiratory Exam: Clear to Ausculation Bilateral, NORMAL BREATHING PATTERN. absent: Rhonchi, Wheezes, Respiratory Distress - Cardiovascular Exam Cardiovascular Exam: REGULAR RHYTHM. absent: Tachycardia, Murmur - GI/Abdominal Exam GI & Abdominal Exam: Soft, Normal Bowel Sounds. absent: Distended, Firm, Guarding, Tenderness - Extremities Exam Additional comments: Left lower extremity has hematoma along posterior and medial aspect of lower calf, approximately 5cm wide and 8cm height. tenderness at and immediately around hematoma. Leg is warm, dorsalis pedis pulse present. Right lower extremity is normal appearance with dorsalis pedis pulse present - Neurological Exam Neurological Exam: Alert, Awake. absent: Oriented x3 Additional comments: only oriented to self - Skin Skin Exam: Dry, Intact, Normal Color, Warm Assessment and Plan - Assessment and Plan (Free Text) Assessment: 81 yo female with PMH of Afib on coumadin, HTN, HLD, and dementia who was sent from her group home due to newly noticed hematoma on posterior portion of left leg. In ED INR was supratherapeutic, greater then 11.0. She was given vitamin K and 1 unit of FFP. Her Hgb was also found to be 7.3 and she was given 1 unit RBC. INR was reduced to 1.92. Plan: 1. Hematoma with Supratherapeutic INR -Stable hematoma in posterior of left lower extremity, no reported trauma as per group home documentation, but poor gait/weight bearing noted -PT/OT consulted -Holding home Warfarin - given 1 dose of Vit K and FFP 1 unit ordered - repeat coags showed reduced INR - I spoke with the family about patients diagnose, alternatives, benefits and risk of treatment including risk of stroke, bleed and . The risk and benefits of Coumadin were discussed. At the present time family would like to hold anticoagulation. 2. Anemia - Hgb fell to 7.3 - baseline per prior charting 10-11 - hemodynamically stable - transfused 1 unit prbc - iron studies show low iron levels - B12 and folate are wnl - heme following 3. UTI - UA positive - urine cultures ordered - started on Rocephin 4. Afib on coumadin - will hold anticoagulation per family - Subtherapeutic INR on labs - continuing other home cardiac medications 5. HTN - pressures stable, continuing home anti-hypertensives 6. Dementia -continue home meds
[2016-11-10] MEDS: Sodium Chloride 0.9% 1,000 ML IV SCH (01:28)
[2016-11-10 03:38] LABS: TOTAL PROTEIN, SERUM 5.4 g/dL (6.1-8.1)
[2016-11-10 07:58] VITALS: BP 128/78; PULSE 62; RESP 18; TEMP 97.7; O2SAT 99
[2016-11-10 08:55] LABS: ADD MANUAL DIFF? NO
[2016-11-10 09:02] LABS: BASO # 0.02 K/mm3 (0.0-2.0); BASO % 0.1 % (0.0-3.0); EOS # 0.1 (0.0-0.7); GRAN # 11.66 (1.4-6.5); GRAN % 85.3 % (50.0-68.0); HEMATOCRIT 29.2 % (36.0-48.0); LYMPH # 0.9 (1.2-3.4); LYMPH % 6.6 % (22.0-35.0); MEAN CELL VOLUME 85.1 fL (80.0-105.0); MEAN CORPUSCULAR HEMOGLOBIN 27.4 pg (25.0-35.0); MEAN CORPUSCULAR HGB CONC 32.2 g/dl (31.0-37.0); MEAN PLATELET VOLUME 8.7 fl (7.0-11.0); PLATELET COUNT 241 10^3/uL (120.0-450.0); RED CELL DISTRIBUTION WIDTH 16.7 % (11.5-14.5); WHITE BLOOD COUNT 13.7 10^3/ul (4.5-11.0)
[2016-11-10 09:07] LABS: ALB/GLOB RATIO 0.6 (1.1-1.8); ALKALINE PHOSPHATASE 244 U/L (38-133); ALT/SGPT 17 U/L (7-56); AST/SGOT 50 U/L (15-39); BILIRUBIN,TOTAL 0.7 mg/dL (0.2-1.3); BLOOD UREA NITROGEN 23 mg/dL (7-21); CALCIUM 8.4 mg/dL (8.4-10.5); CARBON DIOXIDE 27 mmol/L (21-33); CHLORIDE 109 mmol/L (95-110); GFR AFRICAN-AMERICAN > 60; GLUCOSE,RANDOM 80 mg/dL (70-110); POTASSIUM 4.2 mmol/L (3.6-5.0); SODIUM 142 mmol/L (132-148); TOTAL PROTEIN 5.7 g/dL (5.8-8.3)
[2016-11-10 09:09] LABS: INR 1.44 (0.93-1.08)
[2016-11-10 09:56] LABS: BETA 1 GLOBULIN 0.3 g/dL (0.4-0.6); BETA 2 GLOBULIN 0.4 g/dL (0.2-0.5); GAMMA GLOBULIN 1.5 g/dL (0.8-1.7)
[2016-11-10] MEDS: [UNRECOGNIZED DRUG - OTHER] PO SCH (10:11)
[2016-11-10] MEDS: Iron Complex Polysacch 150mg Cap PO SCH (10:11)
[2016-11-10] MEDS: CALCIUM CARBONATE PO SCH (10:11)
[2016-11-10] MEDS: VITAMIN D3 PO SCH (10:11)
[2016-11-10] MEDS: cefTRIAXone 1 gm 100 ML IVPB SCH (10:12)
--- NOTE | 2016-11-10 12:17 | CP.PCM.PN ---
Subjective - Date & Time of Evaluation Date of Evaluation: 11/10/16 Time of Evaluation: 06:15 - Subjective Subjective: General Surgery Dr. Espitia Pt S&E @bedside. NAEO. resting comfortable in bed. dementia at baseline. Objective - Vital Signs/Intake and Output Vital Signs (last 24 hours): Temp Pulse Resp BP Pulse Ox 97.7 F 62 18 128/78 99 11/10/16 07:57 11/10/16 07:57 11/10/16 07:57 11/10/16 10:11 11/10/16 11:31 Intake and Output: 11/10/16 11/10/16 06:59 18:59 Intake Total 1160 Balance 1160 - Medications Medications: Current Medications Acetaminophen (Tylenol 325mg Tab) 650 mg PO Q6H PRN PRN Reason: Pain, Mild (1-3) Atorvastatin Calcium (Lipitor) 20 mg PO HS [facility] Last Admin: 11/09/16 21:36 Dose: 20 mg Cyproheptadine HCl (Periactin) 4 mg PO TID [facility] Last Admin: 11/10/16 10:10 Dose: 4 mg Docusate Sodium (Colace) 100 mg PO HS [facility] Last Admin: 11/09/16 21:36 Dose: 100 mg Donepezil HCl (Aricept) 10 mg PO HS [facility] Last Admin: 11/09/16 21:36 Dose: 10 mg Escitalopram Oxalate (Lexapro) 10 mg PO DAILY [facility] Last Admin: 11/10/16 10:10 Dose: 10 mg Famotidine (Pepcid) 20 mg PO BID [facility] Last Admin: 11/10/16 10:11 Dose: 20 mg Sodium Chloride (Sodium Chloride 0.9%) 1,000 mls @ 50 mls/hr IV .Q20H [facility] Last Admin: 11/10/16 01:28 Dose: 50 mls/hr Ceftriaxone Sodium (Rocephin 1 Gram Ivpb) 100 mls @ 100 mls/hr IVPB DAILY [facility] PRN Reason: Protocol Last Admin: 11/10/16 10:12 Dose: 100 mls/hr Metoprolol Tartrate (Lopressor) 50 mg PO BID [facility] Last Admin: 11/10/16 10:11 Dose: 50 mg Non-Formulary Medication (Calcium Carbonate/Vitamin D3 [Os-Richie 500-Vit D3 200 Caplet]) 1 tab PO DAILY [facility] Last Admin: 11/10/16 10:11 Dose: Not Given Polysaccharide Iron Complex (Ferrex-150) 150 mg PO DAILY [facility] Last Admin: 11/10/16 10:11 Dose: 150 mg Ramipril (Altace) 5 mg PO DAILY [facility] Last Admin: 11/10/16 10:10 Dose: 5 mg - Labs Labs: 11/10/16 08:30 11/10/16 08:30 PT 15.6 Seconds (9.9-11.8) H 11/10/16 08:30 INR 1.44 (0.93-1.08) H 11/10/16 08:30 APTT 42.9 Seconds (23.7-30.8) H 11/08/16 08:30 Laboratory Tests 11/10/16 08:30 Calcium 8.4 Total Bilirubin 0.7 AST 50 H ALT 17 Alkaline Phosphatase 244 H Total Protein 5.7 L Albumin 2.2 L Globulin 3.5 - Constitutional Appears: Non-toxic, No Acute Distress - Head Exam Head Exam: NORMAL INSPECTION - Eye Exam Eye Exam: Normal appearance - ENT Exam ENT Exam: Mucous Membranes Moist - Respiratory Exam Respiratory Exam: NORMAL BREATHING PATTERN. absent: Accessory Muscle Use, Respiratory Distress - Cardiovascular Exam Cardiovascular Exam: Irregular Rhythm - GI/Abdominal Exam GI & Abdominal Exam: Soft. absent: Distended - Extremities Exam Extremities Exam: Tenderness (passive flexion LLE. hematoma present. TTP) - Neurological Exam Neurological Exam: Alert, Awake - Psychiatric Exam Psychiatric exam: Normal Affect, Normal Mood - Skin Skin Exam: Dry, Intact, Normal Color, Warm Assessment and Plan - Assessment and Plan (Free Text) Assessment: 81 y/o F w/ L calf hematoma - No plan for surgery at this time - Cont to monitor for changes Pt discussed with Dr. Omkar Kumar DO PGY1
--- NOTE | 2016-11-10 13:35 | CP.PCM.DIS ---
Provider - Provider Date of Admission: 11/08/16 01:05 Attending physician: Ranjit Lira MD Primary care physician: Phan Farrell MD Time Spent in preparation of Discharge (in minutes): 35 Hospital Course - Lab Results Lab Results: Micro Results 11/08/16 15:15 Blood Blood Culture - Preliminary NO GROWTH AFTER 24 HOURS 11/08/16 15:00 Blood Blood Culture - Preliminary NO GROWTH AFTER 24 HOURS Most Recent Lab Values WBC 13.7 10^3/ul (4.5-11.0) H 11/10/16 08:30 RBC 3.43 10^6/uL (3.5-6.1) L 11/10/16 08:30 Hgb 9.4 gm/dL (12.0-16.0) L 11/10/16 08:30 Hct 29.2 % (36.0-48.0) L 11/10/16 08:30 MCV 85.1 fL (80.0-105.0) 11/10/16 08:30 MCH 27.4 pg (25.0-35.0) 11/10/16 08:30 MCHC 32.2 g/dl (31.0-37.0) 11/10/16 08:30 RDW 16.7 % (11.5-14.5) H 11/10/16 08:30 Plt Count 241 10^3/uL (120.0-450.0) 11/10/16 08:30 MPV 8.7 fl (7.0-11.0) 11/10/16 08:30 Gran % 85.3 % (50.0-68.0) H 11/10/16 08:30 Lymph % (Auto) 6.6 % (22.0-35.0) L 11/10/16 08:30 Haakon % (Auto) 7.0 % (1.0-6.0) H 11/10/16 08:30 Eos % (Auto) 1.0 % (1.5-5.0) L 11/10/16 08:30 Baso % (Auto) 0.1 % (0.0-3.0) 11/10/16 08:30 Gran # 11.66 (1.4-6.5) H 11/10/16 08:30 Lymph # 0.9 (1.2-3.4) L 11/10/16 08:30 Haakon # 1.0 (0.1-0.6) H 11/10/16 08:30 Eos # 0.1 (0.0-0.7) 11/10/16 08:30 Baso # 0.02 K/mm3 (0.0-2.0) 11/10/16 08:30 Retic Count 1.68 % (0.5-1.5) H 11/09/16 10:40 PT 15.6 Seconds (9.9-11.8) H 11/10/16 08:30 INR 1.44 (0.93-1.08) H 11/10/16 08:30 APTT 42.9 Seconds (23.7-30.8) H 11/08/16 08:30 Sodium 142 mmol/L (132-148) 11/10/16 08:30 Potassium 4.2 mmol/L (3.6-5.0) 11/10/16 08:30 Chloride 109 mmol/L (95-110) 11/10/16 08:30 Carbon Dioxide 27 mmol/L (21-33) 11/10/16 08:30 Anion Gap 10 (10-20) 11/10/16 08:30 BUN 23 mg/dL (7-21) H 11/10/16 08:30 Creatinine 0.9 mg/dL (0.5-1.4) 11/10/16 08:30 Est GFR ( Amer) > 60 11/10/16 08:30 Est GFR (Non-Af Amer) > 60 11/10/16 08:30 POC Glucose (mg/dL) 160 mg/dL (65-110) H 11/10/16 11:28 Random Glucose 80 mg/dL (70-110) 11/10/16 08:30 Calcium 8.4 mg/dL (8.4-10.5) 11/10/16 08:30 Phosphorus 3.6 mg/dL (2.5-4.5) 11/08/16 08:30 Magnesium 2.1 mg/dL (1.7-2.2) 11/08/16 08:30 Iron 20 ug/dL (45-180) L 11/09/16 10:40 TIBC 147 ug/dL (265-497) L 11/09/16 10:40 % Saturation 13 % (20-55) L 11/09/16 10:40 Ferritin 759.0 ng/mL 11/09/16 10:40 Total Bilirubin 0.7 mg/dL (0.2-1.3) 11/10/16 08:30 AST 50 U/L (15-39) H 11/10/16 08:30 ALT 17 U/L (7-56) 11/10/16 08:30 Alkaline Phosphatase 244 U/L (38-133) H 11/10/16 08:30 Total Protein 5.7 g/dL (5.8-8.3) L 11/10/16 08:30 Total Protein (PEP) 5.4 g/dL (6.1-8.1) L 11/09/16 10:40 Albumin 2.2 g/dL (3.0-4.8) L 11/10/16 08:30 Albumin (PEP) 2.1 g/dL (3.8-4.8) L 11/09/16 10:40 Globulin 3.5 gm/dL 11/10/16 08:30 Albumin/Globulin Ratio 0.6 (1.1-1.8) L 11/10/16 08:30 Cudxa-1-Oytnohmmp 0.5 g/dL (0.2-0.3) H 11/09/16 10:40 Bushx-7-Qirlelelj 0.6 g/dL (0.5-0.9) 11/09/16 10:40 Wqdf-7-Xavckpnb 0.3 g/dL (0.4-0.6) L 11/09/16 10:40 Lqlt-6-Dprdwkwj 0.4 g/dL (0.2-0.5) 11/09/16 10:40 Gamma Globulins 1.5 g/dL (0.8-1.7) 11/09/16 10:40 Abnorm Protein Band 1 TEST NOT PERFORMED 11/09/16 10:40 Abnorm Protein Band 2 TEST NOT PERFORMED 11/09/16 10:40 Abnorm Protein Band 3 TEST NOT PERFORMED 11/09/16 10:40 Vitamin B12 536 pg/mL (239-931) 11/09/16 10:40 Folate 9.6 ng/mL 11/09/16 10:40 Urine Color Yellow (YELLOW) 11/08/16 10:45 Urine Appearance Cloudy (CLEAR) 11/08/16 10:45 Urine pH 6.0 (4.7-8.0) 11/08/16 10:45 Ur Specific [place] 1.020 (1.005-1.035) 11/08/16 10:45 Urine Protein 30 mg/dL (<30 mg/dL) H 11/08/16 10:45 Urine Glucose (UA) Negative mg/dL (NEGATIVE) 11/08/16 10:45 Urine Ketones Negative mg/dL (NEGATIVE) 11/08/16 10:45 Urine Blood Trace-intact (NEGATIVE) H 11/08/16 10:45 Urine Nitrate Positive (NEGATIVE) H 11/08/16 10:45 Urine Bilirubin Negative (NEGATIVE) 11/08/16 10:45 Urine Urobilinogen 0.2 E.U./dL (<1 E.U./dL) 11/08/16 10:45 Ur Leukocyte Esterase Small Elizabeth/uL (NEGATIVE) H 11/08/16 10:45 Urine RBC 0 - 2 /hpf (0-2) 11/08/16 10:45 Urine WBC 5 - 10 /hpf (0-6) 11/08/16 10:45 Ur Epithelial Cells 4 - 5 /hpf (0-5) 11/08/16 10:45 Urine Bacteria Many (NEG) 11/08/16 10:45 Stool Occult Blood Negative (NEGATIVE) 11/08/16 14:20 TAMIKA & SPEP Interp See note (()) 11/09/16 10:40 Blood Type B POSITIVE 11/08/16 01:10 Antibody Screen Negative 11/08/16 01:10 Crossmatch See Detail 11/08/16 01:10 BBK History Checked Patient has bt 11/08/16 01:10 - Hospital Course Hospital Course: 81 yo female with PMH of Afib on coumadin, HTN, HLD, and dementia who [facility] to newly noticed hematoma on posterior portion of left leg, no witnessed trauma or fall but patient demented and poor gait. In ED INR was supratherapeutic, greater then 11.0. She was given vitamin K and 1 unit of FFP. Xray of tibia/fibula showed no fracture, CT and US of lower extremity showed 6.6 cm hematoma. Her Hgb was also found to be 7.3 and she was given 1 unit RBC. INR was reduced to 1.92. Her UA was positive, she denies any urinary symptoms. She was started on antibiotics. Patient was transferred to med/surg and was doing better. Patient's Hgb improved to 9.4, blood cultures were negative. Surgery was consulted for possible drainage of hematoma, they did not recommend surgery. Patient is doing well, there is no active bleeding however patient is increase risk for falls. The patient's diagnose, alternatives, benefits and risk of treatment including risk of stroke , bleed and as well as the risk and benefits of Coumadin were discussed with the family. Family decided to stop anticoagulation at the current time. Discharge Instruction, Dr. Farrell will follow up with patient at the [facility]. If new symptoms occur, call primary care doctor or go to nearest emergency room. Patient was discharged with bactrim for UTI. Discharge diagnoses are supra therapeutic INR, hematoma, and Anemia. Patient and family are aware of hospital course. Discharge instruction were discussed, they are in agreement. Discharge Exam - Head Exam Head Exam: NORMAL INSPECTION - Eye Exam Eye Exam: Normal appearance - ENT Exam ENT Exam: Mucous Membranes Dry - Respiratory Exam Respiratory Exam: Clear to PA & Lateral, NORMAL BREATHING PATTERN, UNREMARKABLE. absent: Rales, Rhonchi, Wheezes, Respiratory Distress, Stridor - Cardiovascular Exam Cardiovascular Exam: REGULAR RHYTHM. absent: Tachycardia, Diastolic murmur, Systolic Murmur - GI/Abdominal Exam GI & Abdominal Exam: Normal Bowel Sounds, Soft, Unremarkable. absent: Distended , Firm, Tenderness - Extremities Exam Additional comments: Left lower extremity has hematoma along posterior and medial aspect of lower calf, approximately 5cm wide and 8cm height. tenderness at and immediately around hematoma. Leg is warm, dorsalis pedis pulse present. Right lower extremity is normal appearance with dorsalis pedis pulse present - Neurological Exam Neurological exam: Alert Discharge Plan - Discharge Medications Prescriptions: Sulfamethoxazole/Trimethoprim [Bactrim DS 800 mg-160 mg] 1 tab PO Q12 #14 tab - Follow Up Plan Condition: GOOD Disposition: TRANSF TO SNF Instructions: Atrial Fibrillation (GEN), Osteoporosis (GEN), Dementia (GEN), Diabetes Mellitus Type 2 in Adults (DC), Hypertension (GEN), Bleeding Disorders (GEN) Additional Instructions: Discharge Instruction - Dr. Farrell TO FOLLOW PATIENT OVER AT THE [facility] - if new symptoms occur, call primary care doctor or go to nearest emergency room - Stop warfarin anticoagulant, resume all other home meds. - new medication Bactrim Discharge diagnoses 1. supra therapeutic INR 2. hematoma 3. Anemia Referrals: Phan Farrell MD [Primary Care Provider] -
== END 2016-11-10 15:59 | DRG 605 ==
LOC: ED 21:43 → ERH 11-08 01:05 → CCU 11-08 04:44 → 5RSO 11-09 14:15
PROVIDERS: ADMIT Internal Medicine; ATTEND Internal Medicine
PROC: 30233K1 Transfusion of Nonautologous Frozen Plasma into Peripheral Vein, Percutaneous Approach (ICD-10-PCS; principal; 2016-11-08)
PROC: 30233N1 Transfusion of Nonautologous Red Blood Cells into Peripheral Vein, Percutaneous Approach (ICD-10-PCS; 2016-11-08)
DX: S80.12XA Contusion of left lower leg, initial encounter (principal); R79.1 Abnormal coagulation profile; T45.515A Adverse effect of anticoagulants, initial encounter; F03.90 Unspecified dementia, unspecified severity, without behavioral disturbance, psychotic disturbance, mood disturbance, and anxiety; N39.0 Urinary tract infection, site not specified; I48.2 Chronic atrial fibrillation; I12.9 Hypertensive chronic kidney disease with stage 1 through stage 4 chronic kidney disease, or unspecified chronic kidney disease; N18.9 Chronic kidney disease, unspecified; Z66 Do not resuscitate; D64.9 Anemia, unspecified; R29.6 Repeated falls; E78.5 Hyperlipidemia, unspecified; K21.9 Gastro-esophageal reflux disease without esophagitis; Z79.01 Long term (current) use of anticoagulants; Z91.81 History of falling; W19.XXXA Unspecified fall, initial encounter; Y93.89 Activity, other specified; Y92.129 Unspecified place in nursing home as the place of occurrence of the external cause; Y99.8 Other external cause status

== ENCOUNTER 2016-11-19 21:11 | Inpatient (IN) | payer MEDICARE, OTHER ==
[2016-11-19 21:13] VITALS: BMI 21.1
[2016-11-19] MEDS ORDERED: Sodium Chloride 0.9% 1,000 ML IV ONE (21:23)
--- NOTE | 2016-11-19 21:37 | ED PDOC ---
Arrival/HPI - General Chief Complaint: Abnormal Labs Time Seen by Provider: 11/19/16 21:21 Historian: [facility] - History of Present Illness Narrative History of Present Illness (Text): 11/19/16 21:35 Amber Cast is an 81 year old female, whose past medical history includes whose past medical history includes atrial fibrillation, hypertension, hyperlipidemia , GERD, and dementia, who presents [facility] the ED [facility] for abnormal [facility] values. As per [facility] notes, patient had labs performed which showed a WBC of 17.7. retirement notes patient was weak throughout the day and patient was sent for further evaluation. Limited HPI and ROS due to patient's dementia. PMD: Dr. Chandan Farrell Time/Duration: Other (tonight) Symptom Onset: Gradual Symptom Course: Unchanged Activities at Onset: Rest, Light Context: Home (retirement) Past Medical History - Provider Review Nursing Documentation Reviewed: Yes - Infectious Disease Hx of Infectious Diseases: None - Tetanus Immunization Tetanus Immunization: Unknown - Reproductive Menopause: Yes - Cardiac Hx Cardiac Disorders: Yes (afib) Hx Hypertension: Yes - Pulmonary Hx Respiratory Disorders: No - Neurological Hx Neurological Disorder: No Hx Dementia: Yes - HEENT Hx HEENT Disorder: No - Renal Hx Renal Disorder: No - Endocrine/Metabolic Hx Diabetes Mellitus Type 1: Yes - Hematological/Oncological Hx Blood Disorders: No - Integumentary Hx Dermatological Disorder: No - Musculoskeletal/Rheumatological Hx Arthritis: Yes - Gastrointestinal Hx Gastroesophageal Reflux: Yes - Genitourinary/Gynecological Hx Incontinence: Yes - Psychiatric Hx Substance Use: No Other/Comment: dementia - Surgical History Hx Orthopedic Surgery: Yes - Anesthesia Hx Anesthesia: Yes Hx Anesthesia Reactions: No Hx Malignant Hyperthermia: No Family/Social History - Physician Review Nursing Documentation Reviewed: Yes Family/Social History: No Known Family HX Smoking Status: Unknown If Ever Smoked Hx Alcohol Use: No Hx Substance Use: No Allergies/Home Meds Allergies/Adverse Reactions: Allergies strawberry Adverse Reaction (Verified 11/07/16 21:58) SWELLING Home Medications: Home Meds Medication Instructions Recorded Confirmed Acetaminophen [Tylenol] 650 mg PO Q6H PRN 11/26/15 11/19/16 Calcium Carbonate/Vitamin D3 1 tab PO DAILY 11/26/15 11/19/16 [[place] 500-Vit D3 200 Caplet] Donepezil [Aricept] 10 mg PO HS 11/26/15 11/19/16 Escitalopram [Lexapro] 10 mg PO DAILY 11/26/15 11/19/16 Famotidine [Pepcid] 20 mg PO BID 11/26/15 11/19/16 Metoprolol Tartrate [Lopressor] 50 mg PO BID 11/26/15 11/19/16 Ramipril 5 mg PO DAILY 11/26/15 11/19/16 Simvastatin 40 mg PO HS 11/26/15 11/19/16 Cyproheptadine HCl 4 mg PO TID 11/07/16 11/19/16 Docusate [Colace] 100 mg PO HS 11/07/16 11/19/16 Review of Systems - Review of Systems Systems not reviewed;Unavailable: Dementia Constitutional: Other (+generalized weakness) Respiratory: absent: SOB Hemo/Lymphatic: Other (+abnormal labs) Physical Exam Vital Signs Reviewed: Yes Vital Signs Temp Pulse Resp BP Pulse Ox 11/20/16 00:44 81 18 136/75 100 11/19/16 21:30 141/74 11/19/16 21:24 98.5 F 65 18 99 Temperature: Afebrile Blood Pressure: Normal Pulse: Regular Respiratory Rate: Normal Appearance: Positive for: Well-Appearing, Non-Toxic, Comfortable Pain Distress: None Mental Status: Positive for: other (Awake and alert) Finger Stick Blood Glucose: 125 - Systems Exam Head: Present: Atraumatic, Normocephalic Pupils: Present: PERRL Extroacular Muscles: Present: EOMI Conjunctiva: Present: Normal Mouth: Present: Moist Mucous Membranes Neck: Present: Normal Range of Motion Respiratory/Chest: Present: Rhonchi (Scattered rhonchi in right lung field). No : Respiratory Distress, Accessory Muscle Use Cardiovascular: Present: Regular Rate and Rhythm, Normal S1, S2. No: Murmurs Abdomen: Present: Normal Bowel Sounds. No: Tenderness, Distention, Peritoneal Signs Back: Present: Normal Inspection Upper Extremity: Present: Normal Inspection. No: Cyanosis, Edema Lower Extremity: Present: Other (Healed left calf ulceration with overlying hematoma (old)). No: Edema Neurological: Present: GCS=15, CN II-XII Intact, Speech Normal Skin: Present: Warm, Dry, Normal Color. No: Rashes Psychiatric: Present: Alert (Awake and alert) Medical Decision Making ED Course and Treatment: 11/19/16 21:35 Impression: 81 year old female [facility] from [facility] for abnormal lab values today. Differential Diagnosis include but are not limited to: sepsis vs. SIRS vs. pneumonia Plan: -- EKG -- Chest X-ray -- Labs, cardiac enzymes, VBG, blood cultures -- Urinalysis, urine cultures -- IV fluids -- Reassess and disposition Prior Visits: Notes and results from previous visits were reviewed. On 11/07/2016, pt was seen in the ED for right lower extremity pain with associated bruising. Pt was admitted to the hospital for further evaluation. Progress Notes: Reviewed EKG, NSR at 63 bpm. T wave changes anteriorly. Non-specific changes. 11/19/16 22:07 Reviewed radiology, Chest X-ray shows right lung haziness/infiltrate. 11/19/16 23:[address] Amaya, covering for Dr. Farrell/Dr. Lira, who is aware and agrees with plan. Pt will be admitted to Telemetry for dehydration, pneumonia, and sepsis under Dr. Lira' service. Requests Dr. Trujillo and Dr. Lobo on consult. - Lab Interpretations Lab Results: 11/19/16 21:52 11/19/16 21:52 Lab Results 11/19/16 23:10: Urine Color Yellow, Urine Appearance Clear, Urine pH 6.0, Ur Specific [place] 1.020, Urine Protein Trace H, Urine Glucose (UA) Negative, Urine Ketones Negative, Urine Blood Negative, Urine Nitrate Negative, Urine Bilirubin Small H, Urine Urobilinogen 1.0 H, Ur Leukocyte Esterase Negative, Urine RBC 0 - 2, Urine WBC 0 - 2, Ur Epithelial Cells 0 - 2, Hyaline Casts 0 - 2 11/19/16 23:05: pCO2 26 L, pO2 87.0, HCO3 18.1 L, ABG pH 7.45, ABG Total CO2 18.9 L, ABG O2 Saturation 97.9, ABG O2 Content 13.2 L, ABG Base Excess -4.8 L, ABG Hemoglobin 9.8 L, ABG Carboxyhemoglobin 2.4 H, POC ABG HHb (Measured) 2.0, ABG Methemoglobin 0.8, ABG O2 Capacity 13.5 L, Hgb O2 Saturation 94.7 L, FiO2 21.0 11/19/16 21:52: WBC 19.3 H D, RBC 3.75, Hgb 10.6 L, Hct 33.0 L, MCV 88.0, MCH 28.3, MCHC 32.1, RDW 20.4 H, Plt Count 194, MPV 9.4, Gran % 89.1 H, Lymph % ( Auto) 5.6 L, [place] % (Auto) 4.1, Eos % (Auto) 1.0 L, Baso % (Auto) 0.2, Gran # 17.22 H, Lymph # 1.1 L, [place] # 0.8 H, Eos # 0.2, Baso # 0.03, PT 33.7 H*, INR 3.12 H, APTT 45.9 H, pO2 30, VBG pH 7.31 L, VBG pCO2 47.0, VBG HCO3 23.7, VBG Total CO2 25.1, VBG O2 Sat (Calc) 55.7, VBG Base Excess -2.9 L, VBG Potassium 5.0, Glucose 123 H, Lactate 2.2 H, FiO2 21.0, Sodium 147.0, Potassium 5.0, Chloride 120.0 H, Carbon Dioxide 24, Anion Gap 13, BUN 45 H, Creatinine 1.8 H, Est GFR ( Amer) 33, Est GFR (Non-Af Amer) 27, Random Glucose 121 H, Calcium 9.2, Phosphorus 3.0, Magnesium 2.5 H, Total Bilirubin 1.2, AST 73 H, ALT 18, Alkaline Phosphatase 268 H, Lactate Dehydrogenase 1273 H, Total Creatine Kinase 22 L, Troponin I < 0.01 D, Total Protein 6.5, Albumin 2.3 L, Globulin 4.1, Albumin/Globulin Ratio 0.6 L, Venous Blood Potassium 5.0 I have reviewed the lab results: Yes - RAD Interpretation Radiology Orders: 11/19/16 21:23 CHEST PORTABLE [RAD] Stat Manager Room: ED Physician - EKG Interpretation Interpreted by ED Physician: Yes Type: 12 lead EKG - Medication Orders Current Medication Orders: Sodium Chloride (Sodium Chloride 0.9%) 1,000 mls @ 100 mls/hr IV .Q10H STA Stop: 11/20/16 09:52 Last Admin: 11/20/16 00:46 Dose: 100 MLS/HR eMAR Start Stop Document 11/20/16 00:46 GMD (Rec: 11/20/16 00:46 GMD [id number]) Intravenous Solution Start Date 11/20/16 Start Time 00:46 Discontinued Medications Sodium Chloride (Sodium Chloride 0.9%) 1,000 mls @ 1,000 mls/hr IV .Q1H ONE Stop: 11/19/16 22:22 Last Admin: 11/19/16 21:37 Dose: 1,000 MLS/HR eMAR Start Stop Document 11/19/16 21:37 GMD (Rec: 11/19/16 21:38 GMD [id number]) Intravenous Solution Start Date 11/19/16 Start Time 21:37 End Date 11/19/16 End time 22:37 Total Infusion Time 60 Cefepime HCl (Maxipime 2gm) 100 mls @ 100 mls/hr IVPB STAT STA PRN Reason: Protocol Stop: 11/19/16 23:52 Last Admin: 11/20/16 01:37 Dose: 100 MLS/HR eMAR Start Stop Document 11/20/16 01:37 GMD (Rec: 11/20/16 01:38 GMD [id number]) Intravenous Solution Start Date 11/20/16 Start Time 01:38 End Date 11/20/16 End time 02:38 Total Infusion Time 60 Vancomycin HCl (Vancomycin 500mg In Ns) 100 mls @ 200 mls/hr IVPB STAT STA PRN Reason: Protocol Stop: 11/19/16 23:23 Last Admin: 11/19/16 23:29 Dose: 200 MLS/HR eMAR Start Stop Document 11/19/16 23:29 EKEOO (Rec: 11/19/16 23:29 EKEOO [facility] [id number]) Intravenous Solution Start Date 11/19/16 Start Time 23:29 - Scribe Statement The provider has reviewed the documentation as recorded by the Teena Cool Provider Attestation: All medical record entries made by the Cachorroibdejon were at my direction and personally dictated by me. I have reviewed the chart and agree that the record accurately reflects my personal performance of the history, physical exam, medical decision making, and the department course for this patient. I have also personally directed, reviewed, and agree with the discharge instructions and disposition. Disposition/Present on Arrival - Present on Arrival Any Indicators Present on Arrival: No History of DVT/PE: No History of Uncontrolled Diabetes: No Urinary Catheter: Yes History of Decub. Ulcer: No History Surgical Site Infection Following: None - Disposition Have Diagnosis and Disposition been Completed?: Yes Diagnosis: Sepsis, Dehydration Disposition: HOSPITALIZED Disposition Time: 23:40 Patient Plan: Admission Condition: STABLE
[2016-11-19 22:02] LABS: ADD MANUAL DIFF? NO
[2016-11-19 22:08] LABS: BASO # 0.03 K/mm3 (0.0-2.0); BASO % 0.2 % (0.0-3.0); EOS # 0.2 (0.0-0.7); GRAN # 17.22 (1.4-6.5); GRAN % 89.1 % (50.0-68.0); LYMPH # 1.1 (1.2-3.4); LYMPH % 5.6 % (22.0-35.0); MEAN CORPUSCULAR HEMOGLOBIN 28.3 pg (25.0-35.0); MEAN CORPUSCULAR HGB CONC 32.1 g/dl (31.0-37.0); MEAN PLATELET VOLUME 9.4 fl (7.0-11.0); MONO # 0.8 (0.1-0.6); MONO % 4.1 % (1.0-6.0); PLATELET COUNT 194 10^3/uL (120.0-450.0); RED CELL DISTRIBUTION WIDTH 20.4 % (11.5-14.5); WHITE BLOOD COUNT 19.3 10^3/ul (4.5-11.0)
[2016-11-19 22:10] LABS: VENOUS BLOOD GAS BASE EXCESS -2.9 mmol/L (0.0-2.0); VENOUS BLOOD PH 7.31 (7.32-7.43)
[2016-11-19 22:25] LABS: ALB/GLOB RATIO 0.6 (1.1-1.8); ALKALINE PHOSPHATASE 268 U/L (38-133); ALT/SGPT 18 U/L (7-56); AST/SGOT 73 U/L (15-39); BILIRUBIN,TOTAL 1.2 mg/dL (0.2-1.3); BLOOD UREA NITROGEN 45 mg/dL (7-21); CALCIUM 9.2 mg/dL (8.4-10.5); CARBON DIOXIDE 24 mmol/L (21-33); CHLORIDE 111 mmol/L (98-107); GFR AFRICAN-AMERICAN 33; GLUCOSE,RANDOM 121 mg/dL (70-110); MAGNESIUM 2.5 mg/dL (1.7-2.2); SODIUM 143 mmol/L (132-148); TOTAL PROTEIN 6.5 g/dL (5.8-8.3)
[2016-11-19 22:27] LABS: INR 3.12 (0.93-1.08); PARTIAL THROMBOPLASTIN TIME 45.9 Seconds (23.7-30.8)
[2016-11-19 22:44] LABS: TROPONIN I < 0.01 ng/mL
[2016-11-19] MEDS ORDERED: Cefepime IV 2 gm in NS 100 ML IVPB STA (22:53)
[2016-11-19] MEDS ORDERED: Vancomycin 500mg in NS 100 ML IVPB STA (22:54)
[2016-11-19 23:15] LABS: ARTERIAL BLOOD GAS HCO3 18.1 mmol/L (21-28); ARTERIAL BLOOD GAS O2 CAPACITY 13.5 mL/dl (16-24); ARTERIAL BLOOD GAS O2 CONTENT 13.2 ML/dl (15-23); ARTERIAL BLOOD GAS PH 7.45 (7.35-7.45); ARTERIAL BLOOD HGB O2 SAT 94.7 % (95.0-98.0); CARBOXYHEMOGLOBIN 2.4 % (0.5-1.5); METHEMOGLOBIN 0.8 % (0.0-3.0)
[2016-11-19] MEDS ORDERED: Sodium Chloride 0.9% 1,000 ML IV STA (23:53)
[2016-11-19 23:56] LABS: URINE BILIRUBIN SMALL (NEGATIVE); URINE BLOOD NEGATIVE (NEGATIVE); URINE GLUCOSE (UA) NEGATIVE (NEGATIVE); URINE KETONE NEGATIVE (NEGATIVE); URINE LEUKOCYTE ESTERASE NEGATIVE Leu/uL (NEGATIVE); URINE PROTEIN TRACE mg/dL (<30 mg/dL)
[2016-11-19 23:58] LABS: URINE APPEARANCE CLEAR (CLEAR); URINE COLOR YELLOW (YELLOW)
[2016-11-20 00:08] LABS: URINE EPITHELIAL CELLS 0 - 2 /hpf (0-5); URINE RBC 0 - 2 /hpf (0-2); URINE WBC 0 - 2 /hpf (0-6)
[2016-11-20 01:29] LABS: VENOUS BLOOD GAS BASE EXCESS -6.2 mmol/L (0.0-2.0); VENOUS BLOOD PH 7.27 (7.32-7.43)
[2016-11-20] MEDS ORDERED: Sodium Chloride 0.9% 1,000 ML IV STA (06:03)
[2016-11-20] MEDS ORDERED: Cefepime 1gm in NS 100ml 100 ML IVPB SCH (06:30)
[2016-11-20] MEDS ORDERED: Levalbuterol 0.63 MG/3 ML Inhal Soln UD IH PRN (06:50)
[2016-11-20] MEDS: Levalbuterol 0.63 MG/3 ML Inhal Soln UD IH SCH ×3 (07:50→20:03)
--- NOTE | 2016-11-20 08:32 | RAD ---
HISTORY: Sepsis Patient COMPARISON: 11/07/2016 FINDINGS: LUNGS: No active pulmonary disease. PLEURA: Right pleural effusion, possibly increased compared to prior examination. No evidence of left pleural effusion. No pneumothorax. CARDIOVASCULAR: Normal. OSSEOUS STRUCTURES: Several old healed right rib fractures. Left glenohumeral prosthesis. Superior subluxation right humeral head. VISUALIZED UPPER ABDOMEN: Normal. OTHER FINDINGS: None. IMPRESSION: Right pleural effusion, possibly increased. No definite infiltrate.
--- NOTE | 2016-11-20 08:40 | CON ---
DATE: 11/20/2016 REASON FOR CONSULTATION: Pneumonia. REFERRING PHYSICIAN: Dr. Farrell History is obtained via extensive discussion with the night nurse. I have also reviewed the chart at length, and discussed the case with the patient at length. The patient is an 81-year-old chronically ill female, skilled nursing resident, with past medical history significant for atrial fibrillation (on Coumadin), hypertension, hyperlipidemia, dementia, who was sent from the skilled nursing -- for increasing lethargy and weakness for 1 day. Apparently, the patient also had outpatient laboratory work, which revealed a significant leukocytosis. The patient was thus admitted for additional evaluation. Again, I did discuss the case with the night nurse at length. The night nurse does not give a history of shortness of breath at rest or dyspnea on exertion. The night nurse did state that the patient does cough at times with minimal sputum production. There is no history of chest pain, coughing up of blood or chest pain -- made worse with deep respirations. There is no history of temperatures, chills or infectious exposure. There is no history of night sweats, weight loss or appetite change prior to the above events. No history of leg or calf pains. No history of syncope or diaphoresis. No history of recent travel or trauma. REVIEW OF SYSTEMS: No history of nausea, vomiting or diarrhea. No acute urinary symptoms. No new musculoskeletal complaints. Rest of the review of systems is negative. ALLERGIES: STRAWBERRIES. SOCIAL HISTORY: Negative for tobacco, negative for alcohol. FAMILY HISTORY: No inheritable diseases. HOME MEDICATIONS: Include simvastatin, ramipril, Lopressor, Lexapro, Pepcid, Colace, Aricept, cyproheptadine, Tylenol and Coumadin. PHYSICAL EXAMINATION: GENERAL: The patient is not short of breath at rest. She is not using accessory muscles for breathing. VITAL SIGNS: Temperature is 97.1, pulse 54, respirations 18/20, blood pressure 84/59. HEENT: Normocephalic, atraumatic. No JVD. CARDIOVASCULAR: Systolic ejection murmur at the lower left sternal border. No S3 gallop. LUNGS: Crackles noted at the right base. Minimal bilateral rhonchi. No wheezing. EXTREMITIES: No clubbing, cyanosis, or edema. Calves are nontender to palpation. GASTROINTESTINAL: Abdomen is soft, nontender, nondistended. Bowel sounds are positive. SKIN: No acute rash. NEUROLOGIC: Limited at the present time. PERTINENT LABORATORY DATA: Chest x-ray was done and reviewed. There is a new hazy right lower lobe infiltrate seen. There is a small right pleural effusion -- also seen on the previous films. CBC: White count 19.3, hemoglobin 10.6, hematocrit 33.0, platelets of 194. INR 3.12. Arterial blood gas was done on room air. Results are: pH 7.45, pCO2 of 26, pO2 of 87. Complete metabolic profile: Chloride 111, BUN 45, creatinine 1.8, glucose 121, magnesium 2.5, AST 73, alkaline phosphatase 268, albumin 2.3. Rest of the metabolic profile is within normal limits. IMPRESSION: 1. Right lower lobe pneumonia. 2. Small right pleural effusion. 3. Mild anemia. 4. Renal insufficiency. PLAN: Again, I did discuss the case with the night nurse at length. I have also discussed the case with the patient at length and reviewed the chart at length. Apparently, the patient was transferred from the skilled nursing -- due to weakness and increasing lethargy over the past day. In addition, as above, the patient also had outpatient laboratory testing done -- which showed a significant leukocytosis. She was thus admitted for additional evaluation. As above, the nurse notes a small cough with minimal sputum production -- in the patient. No other pulmonary symptoms are reported. I did review the x-ray as above. The x-ray shows a hazy right lower lobe infiltrate. There is also a small right pleural effusion -- seen on previous films. The patient has been pancultured. The cultures will be analyzed when feasible. The patient has been started on antibiotic therapy -- as per infectious disease. Input by Dr. Valdovinos is noted. I have also reviewed the arterial blood gas. The arterial blood gas is very acceptable at this point in time. On physical exam, there is minimal bronchospasm noted. I will start the patient on Xopenex nebulizer treatments. I will also order aspiration precautions. Procalcitonin level has also been ordered. The patient is currently receiving normal saline via intravenous route. We will check a repeat blood pressure in approximately 1 hour. The patient is currently a do not resuscitate/do not intubate status. Clinical status of the patient is guarded at this point in time. I will discuss the above with the attending physician this morning. Thank you very much for this pulmonary consultation. Len Lobo MD cc: [id number] TT: 11/20/2016 08:39:01 Confirmation # [id number] Dictation # [id number] en [email or web address]
[2016-11-20] MEDS: Iron Complex Polysacch 150mg Cap PO SCH (09:43)
[2016-11-20] MEDS: Calcium-Vit D 250 mg-125 Units Tab UD PO SCH (09:43)
[2016-11-20 10:30] LABS: HEMATOCRIT 31.6 % (36.0-48.0); MEAN CELL VOLUME 88.5 fL (80.0-105.0); MEAN CORPUSCULAR HEMOGLOBIN 27.2 pg (25.0-35.0); MEAN CORPUSCULAR HGB CONC 30.7 g/dl (31.0-37.0); MEAN PLATELET VOLUME 9.8 fl (7.0-11.0); PLATELET COUNT 182 10^3/uL (120.0-450.0); RED CELL DISTRIBUTION WIDTH 20.4 % (11.5-14.5)
[2016-11-20 10:37] LABS: ADD MANUAL DIFF? YES; WHITE BLOOD COUNT 29.3 10^3/ul (4.5-11.0)
[2016-11-20 10:40] LABS: ALB/GLOB RATIO 0.6 (1.1-1.8); BILIRUBIN,TOTAL 1.1 mg/dL (0.2-1.3); CALCIUM 8.6 mg/dL (8.4-10.5); MAGNESIUM 2.3 mg/dL (1.7-2.2); POTASSIUM 4.9 mmol/L (3.6-5.0); TOTAL PROTEIN 6.2 g/dL (5.8-8.3)
[2016-11-20 10:56] LABS: ANISOCYTOSIS 1+; BAND 6 % (0-2); HYPOCHROMIA 1+; MYELOCYTE 1 %; NEUTROPHIL 91 % (50.0-70.0); PLATELET ESTIMATE NORMAL (NORMAL); POLYCHROMASIA SLIGHT
[2016-11-20 10:57] LABS: TOXIC GRANULATION SLIGHT
--- NOTE | 2016-11-20 11:06 | CP.PCM.HP ---
<Shoshana Elizondo - Last Filed: 11/20/16 14:47> History of Present Illness - History of Present Illness History of Present Illness: PGY-1 H&P 81 yo female with PMH of HTN, a. fib not on anticoagulation, arthritis, hyperlipidemia, GERD and dementia presented to ED from nursing with lethargy and abnormal lab values. Patient's WBC was elevated. [facility] WBC was 17.7. Family states that over the weekend patient was very lethargic and was not eating well. Nursing also reports that the patient has been weak throughout the day. Patient states that she is tired but denies any specific complaints. HPI and ROS is limited due to patients dementia. PMH: - HTN, a. fib not on anticoagulation, arthritis, hyperlipidemia, GERD and dementia PSH; - orthopedic surgery allergy- strawberries Present on Admission - Present on Admission Any Indicators Present on Admission: No Review of Systems - Review of Systems Systems not reviewed;Unavailable: Dementia Past Patient History - Infectious Disease Hx of Infectious Diseases: None - Tetanus Immunizations Tetanus Immunization: Unknown - Past Medical History & Family History Past Medical History?: Yes - Past Social History Smoking Status: Unknown If Ever Smoked - CARDIAC Hx Cardiac Disorders: Yes (afib) Hx Hypertension: Yes - PULMONARY Hx Respiratory Disorders: No - NEUROLOGICAL Hx Neurological Disorder: No Hx Dementia: Yes - HEENT Hx HEENT Problems: No - RENAL Hx Chronic Kidney Disease: No - ENDOCRINE/METABOLIC Hx Diabetes Mellitus Type 1: Yes - HEMATOLOGICAL/ONCOLOGICAL Hx Blood Disorders: No - INTEGUMENTARY Hx Dermatological Problems: No - MUSCULOSKELETAL/RHEUMATOLOGICAL Hx Arthritis: Yes - GASTROINTESTINAL Hx Gastroesophageal Reflux: Yes - GENITOURINARY/GYNECOLOGICAL Hx Incontinence: Yes - PSYCHIATRIC Hx Substance Use: No Other/Comment: dementia - SURGICAL HISTORY Hx Orthopedic Surgery: Yes - ANESTHESIA Hx Anesthesia: Yes Hx Anesthesia Reactions: No Hx Malignant Hyperthermia: No Meds Allergies/Adverse Reactions: Allergies Allergy/AdvReac Type Severity Reaction Status Date / Time strawberry AdvReac SWELLING Verified 11/07/16 21:58 Physical Exam - Constitutional Appears: No Acute Distress - Head Exam Head Exam: ATRAUMATIC, NORMOCEPHALIC - Eye Exam Eye Exam: EOMI, Normal appearance - ENT Exam ENT Exam: Mucous Membranes Moist - Respiratory Exam Respiratory Exam: Decreased Breath Sounds (bilateral bases), Rhonchi. absent: Respiratory Distress - Cardiovascular Exam Cardiovascular Exam: REGULAR RHYTHM. absent: Tachycardia, Diastolic murmur, Systolic Murmur - GI/Abdominal Exam GI & Abdominal Exam: Normal Bowel Sounds, Soft. absent: Distended, Firm, Tenderness - Extremities Exam Extremities exam: Negative for: pedal edema Additional comments: 5cm hematoma of left lower extremity - Neurological Exam Additional comments: patient is is oriented x1, lethargic - Skin Skin Exam: Dry, Intact, Normal Color, Warm Results - Vital Signs Recent Vital Signs: Last Vital Signs Temp 97.1 F L 11/20/16 06:00 Pulse 54 L 11/20/16 08:47 Resp 18 11/20/16 06:00 BP 84/59 L 11/20/16 06:00 Pulse Ox 91 L 11/20/16 06:00 - Labs Result Diagrams: 11/20/16 10:20 11/20/16 10:20 Labs: Laboratory Results - last 24 hr 11/20/16 11/20/16 01:19 10:20 WBC 29.3 H* D RBC 3.57 Hgb 9.7 L Hct 31.6 L MCV 88.5 MCH 27.2 MCHC 30.7 L RDW 20.4 H Plt Count 182 MPV 9.8 Neutrophils % (Manual) 91 H Band Neutrophils % 6 H Lymphocytes % (Manual) 2 L Myelocytes % 1 Toxic Granulation Slight Platelet Evaluation Normal Polychromasia Slight Hypochromasia 1+ Anisocytosis (manual) 1+ pO2 84 H VBG pH 7.27 L VBG pCO2 45.0 VBG HCO3 20.7 L VBG Total CO2 22.1 VBG O2 Sat (Calc) 96.9 H VBG Base Excess -6.2 L VBG Potassium 4.9 Sodium 147.0 149 H Chloride 120.0 H 118 H Glucose 121 H Lactate 2.8 H FiO2 21.0 Potassium 4.9 Carbon Dioxide 20 L Anion Gap 16 BUN 42 H Creatinine 1.7 H Est GFR ( Amer) 35 Est GFR (Non-Af Amer) 29 Random Glucose 113 H Calcium 8.6 Magnesium 2.3 H Total Bilirubin 1.1 AST 78 H ALT 19 Alkaline Phosphatase 231 H Total Protein 6.2 Albumin 2.2 L Globulin 4.0 Albumin/Globulin Ratio 0.6 L Venous Blood Potassium 4.9 Assessment & Plan - Assessment and Plan (Free Text) Assessment: 81 yo female with PMH of HTN, a. fib not on anticoagulation, arthritis, hyperlipidemia, GERD and dementia presented with possible sepsis 2/2 PNA, anemia , elevated LFTs and hematoma on left leg. Patient is aferbile with leukocytosis. Rehman cultures are pending. Plan: 1. possible sepsis 2/2 PNA - cxr showed pleural effusion with possible infiltrate - started on abx cefepime, doxycycline - lactate dehydrogenase elevated, procal pending - rehman cultures pending - UTI on previous admission was d/c on abx, UA negative 2. hypotension - patient was hypotensive overnight - received 1 liter bolus - hold altase, lopressor 3. anemia - currently 9.7, baseline 11 - pending peripheral smear - possible hemolytic anemia - cont monitoring 4. hematoma - on medial aspect of left leg - improved from previous admission - surgery consulted, Dr. Espitia, for possible drainage 5. elevated LFTs - alkaline phosphatase elevated - gallbladder/hepatic US - hold Lipitor 6. A. fib - family decided to hold anticoagulation due to risk of bleed - cardiology consulted, Dr. Thao ppx - pepcid GI ppx - SCDs DVT ppx <Ranjit Lira - Last Filed: 11/28/16 10:13> Results - Vital Signs Recent Vital Signs: Last Vital Signs Temp 97.9 F 11/24/16 05:37 Pulse 109 H 11/24/16 05:37 Resp 18 11/24/16 05:37 BP 131/85 11/24/16 05:37 Pulse Ox 100 11/24/16 05:37 - Labs Result Diagrams: 11/24/16 08:55 11/24/16 08:55 Labs: Laboratory Results - last 24 hr 11/23/16 07:00 Albumin (PEP) 2.2 L Cgywm-1-Zivkbyyjj 0.6 H Fvldz-1-Lukzlbowx 0.4 L Xrtl-7-Ciubvfyt 0.3 L Vxoz-1-Zezzdffo 0.5 Gamma Globulins 2.0 H Abnorm Protein Band 1 TEST NOT PERFORMED Abnorm Protein Band 2 TEST NOT PERFORMED Abnorm Protein Band 3 TEST NOT PERFORMED TAMIKA & SPEP Interp See note Serum Immunofixation See note Attending/Attestation - Attestation I have personally seen and examined this patient.: Yes I have fully participated in the care of the patient.: Yes I have reviewed all pertinent clinical information: Yes Notes (Text): 11/28/16 10:13 Medical record note made by resident after discussion with my direction and input after patient was personally seen and examined by me. I have reviewed the chart and agree that the record reflects my personal history, physical, review of data and course for the patient.
[2016-11-20 12:41] LABS: OVALOCYTES 1+; POIKILOCYTOSIS 1+; TEAR DROP CELLS SLIGHT
[2016-11-20 12:42] LABS: BURR CELLS SLIGHT; HELMET CELLS SLIGHT
--- NOTE | 2016-11-20 13:42 | US ---
HISTORY: elevated LFTs COMPARISON: None. TECHNIQUE: Sonographic evaluation of the right upper quadrant of the abdomen. FINDINGS: LIVER: Measures 14.9 cm in length. Heterogeneous echogenicity of the liver parenchyma. Numerous masses within the liver suspicious for metastatic disease. Please correlate with contrast-enhanced CT. No biliary dilatation. GALLBLADDER: No cholelithiasis. Dependent sludge identified. No mural thickening. Negative sonographic Soto's sign. COMMON BILE DUCT: Measures 3 mm. No stones. No dilatation. PANCREAS: Unremarkable as visualized. No mass. No ductal dilatation. RIGHT KIDNEY: Measures 9.2 cm in length. Normal cortical echogenicity. Simple 8 mm lower pole cortical cyst. No calculus or hydronephrosis. AORTA: No aneurysmal dilatation. IVC: Unremarkable. OTHER FINDINGS: Right pleural effusion noted. IMPRESSION: Limited examination. Patient unable to turn for decubitus images. Numerous hepatic masses suspicious for metastatic disease. Please correlate with contrast enhanced CT examination. Right pleural effusion. No ascites.
--- NOTE | 2016-11-20 14:46 | CP.PCM.CON ---
History of Present Illness - History of Present Illness History of Present Illness: 81 year old female with PMH of HTN, dyslipidemia, GERD, dementia, atrial fibrillation was sent in from the senior care because of abnormal labs. She was noted to have leukocytosis and renal failure. The labs were drawn because she was noted to have generalized weakness yesterday and was noted to have some lethargy. There was no note of fever, no loss of consciousness, no convulsions, no diarrhea, no vomiting, no cough. Full review of systems is difficult to obtain because of the patient's dementia. Infectious Diseases consult is requested to further evaluate and manage. Review of Systems - Review of Systems Systems not reviewed;Unavailable: Dementia Past Patient History - Infectious Disease Hx of Infectious Diseases: None - Tetanus Immunizations Tetanus Immunization: Unknown - Past Medical History & Family History Past Medical History?: Yes Past Family History: Reviewed and not pertinent - Past Social History Smoking Status: Unknown If Ever Smoked Alcohol: None Drugs: Other (unknown; unable to verify with patient) Home Situation {Lives}: Detention - CARDIAC Hx Cardiac Disorders: Yes (afib) Hx Hypertension: Yes - PULMONARY Hx Respiratory Disorders: No - NEUROLOGICAL Hx Neurological Disorder: No Hx Dementia: Yes - HEENT Hx HEENT Problems: No - RENAL Hx Chronic Kidney Disease: No - ENDOCRINE/METABOLIC Hx Diabetes Mellitus Type 1: Yes - HEMATOLOGICAL/ONCOLOGICAL Hx Blood Disorders: No - INTEGUMENTARY Hx Dermatological Problems: No - MUSCULOSKELETAL/RHEUMATOLOGICAL Hx Arthritis: Yes - GASTROINTESTINAL Hx Gastroesophageal Reflux: Yes - GENITOURINARY/GYNECOLOGICAL Hx Incontinence: Yes - PSYCHIATRIC Hx Substance Use: No Other/Comment: dementia - SURGICAL HISTORY Hx Orthopedic Surgery: Yes - ANESTHESIA Hx Anesthesia: Yes Hx Anesthesia Reactions: No Hx Malignant Hyperthermia: No Meds Allergies/Adverse Reactions: Allergies Allergy/AdvReac Type Severity Reaction Status Date / Time strawberry AdvReac SWELLING Verified 11/07/16 21:58 - Medications Medications: Current Medications Sodium Chloride (Sodium Chloride 0.9%) 1,000 mls @ 100 mls/hr IV .Q10H STA Stop: 11/20/16 09:52 Last Admin: 11/20/16 00:46 Dose: 100 mls/hr Sodium Chloride (Sodium Chloride 0.9%) 1,000 mls @ 999 mls/hr IV .Q1H1M STA Stop: 11/20/16 07:03 Physical Exam - Constitutional Appears: Non-toxic, No Acute Distress, Other (albeit a little bit lethargic) - Head Exam Head Exam: NORMAL INSPECTION - ENT Exam ENT Exam: Mucous Membranes Moist - Neck Exam Neck exam: Negative for: Lymphadenopathy, Meningismus - Respiratory Exam Respiratory Exam: Decreased Breath Sounds - Cardiovascular Exam Cardiovascular Exam: +S1, +S2 - GI/Abdominal Exam GI & Abdominal Exam: Soft. absent: Tenderness Results - Vital Signs Recent Vital Signs: Last Vital Signs Temp 97.1 F L 11/20/16 06:00 Pulse 54 L 11/20/16 06:00 Resp 18 11/20/16 06:00 BP 84/59 L 11/20/16 06:00 Pulse Ox 91 L 11/20/16 06:00 - Labs Result Diagrams: 11/20/16 10:20 11/20/16 10:20 Labs: Laboratory Results - last 24 hr 11/20/16 01:19 pO2 84 H VBG pH 7.27 L VBG pCO2 45.0 VBG HCO3 20.7 L VBG Total CO2 22.1 VBG O2 Sat (Calc) 96.9 H VBG Base Excess -6.2 L VBG Potassium 4.9 Sodium 147.0 Chloride 120.0 H Glucose 121 H Lactate 2.8 H FiO2 21.0 Venous Blood Potassium 4.9 Assessment & Plan - Assessment and Plan (Free Text) Plan: Assessment Consider severe sepsis with acute renal failure and marked leukocytosis probably secondary to right sided healthcare-associated pneumonia with possible gram positive cocci and/or gram negative bacilli with pleural effusion R/O hepatic metastatic masses HTN dyslipidemia GERD dementia atrial fibrillation Plan Started patient on Doxycycline and Cefepime (renally-adjusted) and gave one dose of IV Vancomycin pending blood, sputum cx; should get repeat CXR tomorrow; PCT is elevated Should consider CT Abdomen and pelvis to check the liver Will monitor clinically
--- NOTE | 2016-11-20 15:41 | CARD ---
APPROVED REPORT EKG Measurement Heart [id number] <Conclusion> Normal sinus rhythm T wave abnormality, consider anterior ischemia Abnormal ECG
--- NOTE | 2016-11-20 16:24 | CON ---
DATE: 11/20/2016 HISTORY OF PRESENT ILLNESS: The patient is an 81-year-old woman, who presented to the Emergency Room with sepsis. PAST MEDICAL HISTORY: Includes hypertension, hyperlipidemia and dementia. There is a question of at rial fibrillation noted in the history; however, there is no documentation that I can find that rosario ferrera notes she has ever had atrial fibrillation. The patient is from a shelter. The patient is confused, but in no acute distress. SOCIAL HISTORY AND REVIEW OF SYSTEMS: Unavailable. PHYSICAL EXAMINATION: VITAL SIGNS: The blood pressure is 136/75. The patient is afebrile. The heart rate is in the 80s, normal sinus rhythm. NECK: Negative JVD. LUNGS: No rales noted. HEART: Reveals S1, S2, without murmurs. EXTREMITIES: Without edema. There is a hematoma in the left lower extremity, which is tender to nadja ch and erythematous. EKG shows normal sinus rhythm with no acute changes. LABORATORIES: Troponin is negative x 1. BUN and creatinine 42 and 1.7. Hemoglobin is 9.7 with a wh ite count of 29,000. IMPRESSION: 1. Sepsis likely due to #2. 2. Cellulitis of the lower extremity. 3. No evidence for atrial fibrillation. 4. Dementia. 5. Anemia. Given these findings, the patient's previous echocardiogram less than 12 months ago shows normal LV f unction. Her treatment needs to be directed at her infection and rule out an abscess in the lower extremity. Bubba Thao MD cc: [id number] TT: 11/20/2016 16:23:50 Confirmation # [id number] Dictation # [id number] mn
--- NOTE | 2016-11-20 19:00 | CP.PCM.CON ---
History of Present Illness - History of Present Illness History of Present Illness: General Surgery Dr. Espitia 81 y/o F w/ PMHx of Afib on coumadin, HTN, HLD, and dementia presents from custodial with suspected HCAP and L calf hematoma, which prompted the pt's last admission on 11/08/16. Pt was BIBA for lethargy and leukocytosis w/ WBC of 17.7 in custodial.Pt has severe dementia thus HPI obtained from previous notes. The hematoma is largely unchanged. No reported trauma or falls. Patient is not able to ambulate well. Denies any associated pain. PMHx: Afib on coumadin, HTN, HLD, dementia Meds: reviewed in chart Allergies: strawberry PSHx: unknown FHx: noncontributory SHx: lives in custodial. Review of Systems - Review of Systems Systems not reviewed;Unavailable: Altered Mental Status Past Patient History - Infectious Disease Hx of Infectious Diseases: None - Tetanus Immunizations Tetanus Immunization: Unknown - Past Medical History & Family History Past Medical History?: Yes - Past Social History Smoking Status: Unknown If Ever Smoked - CARDIAC Hx Cardiac Disorders: Yes (afib) Hx Hypertension: Yes - PULMONARY Hx Respiratory Disorders: No - NEUROLOGICAL Hx Neurological Disorder: No Hx Dementia: Yes - HEENT Hx HEENT Problems: No - RENAL Hx Chronic Kidney Disease: No - ENDOCRINE/METABOLIC Hx Diabetes Mellitus Type 1: Yes - HEMATOLOGICAL/ONCOLOGICAL Hx Blood Disorders: No - INTEGUMENTARY Hx Dermatological Problems: No - MUSCULOSKELETAL/RHEUMATOLOGICAL Hx Arthritis: Yes - GASTROINTESTINAL Hx Gastroesophageal Reflux: Yes - GENITOURINARY/GYNECOLOGICAL Hx Incontinence: Yes - PSYCHIATRIC Hx Substance Use: No Other/Comment: dementia - SURGICAL HISTORY Hx Orthopedic Surgery: Yes - ANESTHESIA Hx Anesthesia: Yes Hx Anesthesia Reactions: No Hx Malignant Hyperthermia: No Meds Allergies/Adverse Reactions: Allergies Allergy/AdvReac Type Severity Reaction Status Date / Time strawberry AdvReac SWELLING Verified 11/07/16 21:58 - Medications Medications: Current Medications Atorvastatin Calcium (Lipitor) 20 mg PO DIN [facility] Calcium/Vitamin D (Oscal-D 250 Mg-125 Units Tab) 2 tab PO DAILY [facility] Last Admin: 11/20/16 09:43 Dose: Not Given Cyproheptadine HCl (Periactin) 4 mg PO TID [facility] Last Admin: 11/20/16 18:17 Dose: 4 mg Docusate Sodium (Colace) 100 mg PO HS [facility] Donepezil HCl (Aricept) 10 mg PO HS [facility] Escitalopram Oxalate (Lexapro) 10 mg PO DAILY [facility] Last Admin: 11/20/16 09:43 Dose: Not Given Famotidine (Pepcid) 20 mg PO BID [facility] Last Admin: 11/20/16 18:17 Dose: 20 mg Doxycycline Hyclate 100 mg/ (Sodium Chloride) 100 mls @ 100 mls/hr IVPB Q12 [facility] PRN Reason: Protocol Last Admin: 11/20/16 09:42 Dose: 100 mls/hr Cefepime HCl (Maxipime 2gm) 100 mls @ 100 mls/hr IVPB DAILY [facility] PRN Reason: Protocol Stop: 11/28/16 10:01 Levalbuterol HCl (Xopenex) 0.63 mg IH Q2 PRN PRN Reason: Shortness of Breath Levalbuterol HCl (Xopenex) 0.63 mg IH [id number] [facility] Last Admin: 11/20/16 15:10 Dose: 0.63 mg Metoprolol Tartrate (Lopressor) 50 mg PO BID [facility] Polysaccharide Iron Complex (Ferrex-150) 150 mg PO DAILY [facility] Last Admin: 11/20/16 09:43 Dose: Not Given Ramipril (Altace) 5 mg PO DAILY [facility] Physical Exam - Constitutional Appears: Non-toxic, No Acute Distress, Older Than Stated Age, Confused, Chronically Ill - Head Exam Head Exam: NORMAL INSPECTION - Eye Exam Eye Exam: Normal appearance - ENT Exam ENT Exam: Mucous Membranes Moist - Respiratory Exam Respiratory Exam: NORMAL BREATHING PATTERN. absent: Accessory Muscle Use, Respiratory Distress - Cardiovascular Exam Cardiovascular Exam: Irregular Rhythm - GI/Abdominal Exam GI & Abdominal Exam: Soft. absent: Distended - Extremities Exam Additional comments: 5cm hematoma of LLE - Neurological Exam Neurological exam: Alert, Altered (dementia) - Skin Skin Exam: Dry, Intact, Warm Results - Vital Signs Recent Vital Signs: Last Vital Signs Temp 97.3 F L 11/20/16 18:00 Pulse 81 11/20/16 18:00 Resp 18 11/20/16 18:00 BP 120/80 11/20/16 18:00 Pulse Ox 91 L 11/20/16 06:00 - Labs Result Diagrams: 11/20/16 10:20 11/20/16 10:20 Labs: Laboratory Results - last 24 hr 11/20/16 11/20/16 11/20/16 01:19 07:15 10:20 WBC 29.3 H* D RBC 3.57 Hgb 9.7 L Hct 31.6 L MCV 88.5 MCH 27.2 MCHC 30.7 L RDW 20.4 H Plt Count 182 MPV 9.8 Neutrophils % (Manual) 91 H Band Neutrophils % 6 H Lymphocytes % (Manual) 2 L Monocytes % (Manual) TEST NOT PERFORMED Myelocytes % 1 Toxic Granulation Slight Platelet Evaluation Normal Polychromasia Slight Hypochromasia 1+ Poikilocytosis (manual 1+ Anisocytosis (manual) 1+ Tear Drop Cells Slight Ovalocytes 1+ Helmet Cells Slight González Cells Slight Acanthocytes (Spur) Slight pO2 84 H VBG pH 7.27 L VBG pCO2 45.0 VBG HCO3 20.7 L VBG Total CO2 22.1 VBG O2 Sat (Calc) 96.9 H VBG Base Excess -6.2 L VBG Potassium 4.9 Sodium 147.0 149 H Chloride 120.0 H 118 H Glucose 121 H Lactate 2.8 H FiO2 21.0 Potassium 4.9 Carbon Dioxide 20 L Anion Gap 16 BUN 42 H Creatinine 1.7 H Est GFR ( Amer) 35 Est GFR (Non-Af Amer) 29 Random Glucose 113 H Calcium 8.6 Magnesium 2.3 H Total Bilirubin 1.1 AST 78 H ALT 19 Alkaline Phosphatase 231 H NT-Pro-B Natriuret Pep 4860 H Total Protein 6.2 Albumin 2.2 L Globulin 4.0 Albumin/Globulin Ratio 0.6 L Procalcitonin 2.34 H Venous Blood Potassium 4.9 - Imaging and Cardiology Chest x-ray Status: Image reviewed by me, Report reviewed by me US - abdomen Status: Image reviewed by me, Report reviewed by me Assessment & Plan - Assessment and Plan (Free Text) Assessment: 81 y/o F w/ multiple comorbidites w/ healing LLE hematoma - warm compresses - I&D at bedside if needed - cont medical management Pt seen and discussed w/ Omkar Kumar DO PGY1
[2016-11-21] MEDS: Levalbuterol 0.63 MG/3 ML Inhal Soln UD IH SCH ×4 (01:30→22:24)
[2016-11-21 07:10] LABS: HEMATOCRIT 33.2 % (36.0-48.0); MEAN CORPUSCULAR HEMOGLOBIN 27.1 pg (25.0-35.0); MEAN CORPUSCULAR HGB CONC 30.4 g/dl (31.0-37.0); PLATELET COUNT 215 10^3/uL (120.0-450.0); RED CELL DISTRIBUTION WIDTH 20.8 % (11.5-14.5)
[2016-11-21 07:18] LABS: INR 3.16 (0.93-1.08); PARTIAL THROMBOPLASTIN TIME 45.4 Seconds (23.7-30.8)
[2016-11-21 07:23] LABS: ALB/GLOB RATIO 0.5 (1.1-1.8); BILIRUBIN,TOTAL 1.2 mg/dL (0.2-1.3); CALCIUM 8.7 mg/dL (8.4-10.5); POTASSIUM 4.5 mmol/L (3.6-5.0); TOTAL PROTEIN 6.7 g/dL (5.8-8.3)
[2016-11-21 07:41] LABS: ADD MANUAL DIFF? YES; WHITE BLOOD COUNT 25.9 10^3/ul (4.5-11.0)
[2016-11-21 09:14] LABS: ATYPICAL LYMPHOCYTE 1 % (0.0-0.0); BAND 3 % (0-2); NEUTROPHIL 87 % (50.0-70.0)
[2016-11-21 09:15] LABS: ANISOCYTOSIS 2+; HYPOCHROMIA 1+; PLATELET ESTIMATE NORMAL (NORMAL); POIKILOCYTOSIS 1+; POLYCHROMASIA SLIGHT
[2016-11-21 09:16] LABS: BURR CELLS 1+; OVALOCYTES 1+; TEAR DROP CELLS SLIGHT
--- NOTE | 2016-11-21 09:27 | CT ---
PROCEDURE: CT Abdomen and Pelvis with contrast HISTORY: abnormal liver US COMPARISON: Right upper quadrant ultrasound TECHNIQUE: CT scan of the abdomen and pelvis was performed without administration of oral or intravenous contrast. Coronal and sagittal reformatted images were obtained Radiation dose: Total exam DLP = 480.72 mGy-cm. FINDINGS: LOWER THORAX: There is a moderate right and small left pleural effusion with compressive atelectasis in the lungs. LIVER: Evaluation of the liver is limited due to extensive streak artifacts from leads. Allowing for this, there are numerous low-attenuation lesions throughout both lobes of the liver. GALLBLADDER AND BILE DUCTS: The gallbladder is distended. There are no calcified gallstones. PANCREAS: There is mild diffuse atrophy of the pancreas. SPLEEN: The spleen is normal in size. ADRENALS: Both adrenal glands are normal in size without discrete nodule. KIDNEYS AND URETERS: Both kidneys are atrophic. There is nonspecific perinephric fat stranding. There is no hydronephrosis or nephrolithiasis. There are probable cysts in the right kidney. VASCULATURE: There are atherosclerotic aortoiliac calcifications. No aortic aneurysm. BOWEL: The small bowel loops are normal in caliber. There are postsurgical changes in the distal ileum. There is large amount of stool in the colon and fecal stasis in the rectum. APPENDIX: No inflammatory changes in the right lower quadrant. PERITONEUM: There is small perihepatic ascites. No free intraperitoneal air. LYMPH NODES: Unremarkable. No enlarged lymph nodes. BLADDER: Unremarkable. REPRODUCTIVE: Unremarkable. BONES: There is severe levoscoliosis in the lumbar spine. There is diffuse bone demineralization and multilevel degenerative changes. OTHER FINDINGS: None. IMPRESSION: 1. This examination is of suboptimal diagnostic quality due to lack of intravenous contrast and extensive streak artifacts from multiple leads overlying the abdomen. Allowing for this, multiple hepatic masses are suspicious for metastasis. 2. Moderate right and small left pleural effusion. 3. Constipation. No evidence of bowel obstruction.
--- NOTE | 2016-11-21 09:35 | CP.PCM.PN ---
Subjective - Date & Time of Evaluation Date of Evaluation: 11/21/16 Time of Evaluation: 06:45 - Subjective Subjective: Pt seen and evaluated at the bedside. Denies pain of L LE. Afebrile overnight. Objective - Vital Signs/Intake and Output Vital Signs (last 24 hours): Temp Pulse Resp BP Pulse Ox 97 F L 100 H 18 133/86 95 11/21/16 06:00 11/21/16 06:00 11/21/16 06:00 11/21/16 06:00 11/21/16 06:00 Intake and Output: 11/21/16 11/21/16 06:59 18:59 Intake Total 120 Balance 120 - Medications Medications: Current Medications Atorvastatin Calcium (Lipitor) 20 mg PO DIN [facility] Calcium/Vitamin D (Oscal-D 250 Mg-125 Units Tab) 2 tab PO DAILY [facility] Last Admin: 11/20/16 09:43 Dose: Not Given Cyproheptadine HCl (Periactin) 4 mg PO TID [facility] Last Admin: 11/20/16 18:17 Dose: 4 mg Docusate Sodium (Colace) 100 mg PO HS [facility] Last Admin: 11/20/16 22:39 Dose: 100 mg Donepezil HCl (Aricept) 10 mg PO HS [facility] Last Admin: 11/20/16 22:39 Dose: 10 mg Escitalopram Oxalate (Lexapro) 10 mg PO DAILY [facility] Last Admin: 11/20/16 09:43 Dose: Not Given Famotidine (Pepcid) 20 mg PO BID [facility] Last Admin: 11/20/16 18:17 Dose: 20 mg Doxycycline Hyclate 100 mg/ (Sodium Chloride) 100 mls @ 100 mls/hr IVPB Q12 [facility] PRN Reason: Protocol Last Admin: 11/20/16 22:39 Dose: 100 mls/hr Cefepime HCl (Maxipime 2gm) 100 mls @ 100 mls/hr IVPB DAILY [facility] PRN Reason: Protocol Stop: 11/28/16 10:01 Levalbuterol HCl (Xopenex) 0.63 mg IH Q2 PRN PRN Reason: Shortness of Breath Levalbuterol HCl (Xopenex) 0.63 mg IH [id number] [facility] Last Admin: 11/21/16 07:19 Dose: 0.63 mg Metoprolol Tartrate (Lopressor) 50 mg PO BID [facility] Polyethylene Glycol (Miralax) 17 gm PO DAILY [facility] Polysaccharide Iron Complex (Ferrex-150) 150 mg PO DAILY [facility] Last Admin: 11/20/16 09:43 Dose: Not Given Ramipril (Altace) 5 mg PO DAILY [facility] - Labs Labs: 11/21/16 06:30 11/21/16 06:30 PT 34.1 Seconds (9.9-11.8) H* 11/21/16 06:30 INR 3.16 (0.93-1.08) H 11/21/16 06:30 APTT 45.4 Seconds (23.7-30.8) H 11/21/16 06:30 - Additional Findings Additional findings: - Constitutional Appears: Non-toxic, No Acute Distress, Older Than Stated Age, Confused, Chronically Ill - Head Exam Head Exam: NORMAL INSPECTION - Eye Exam Eye Exam: Normal appearance - ENT Exam ENT Exam: Mucous Membranes Moist - Respiratory Exam Respiratory Exam: NORMAL BREATHING PATTERN. absent: Accessory Muscle Use, Respiratory Distress - Cardiovascular Exam Cardiovascular Exam: Irregular Rhythm - GI/Abdominal Exam GI & Abdominal Exam: Soft. absent: Distended - Extremities Exam Additional comments: 5cm hematoma of LLE. Tenderness when LLE moved. No discharge - Neurological Exam Neurological exam: Alert, Altered (dementia) - Skin Skin Exam: Dry, Intact, Warm Assessment and Plan - Assessment and Plan (Free Text) Plan: 81 yo F w/PMHx w/LLE hematoma: - 75 cc of hematoma was aspirated - warm compresses - I&D at bedside if needed - cont medical management further recs as per Dr. Omkar Cabrera PGY1
[2016-11-21] MEDS: Iron Complex Polysacch 150mg Cap PO SCH (09:39)
[2016-11-21] MEDS: POLYETHYLENE GLYCOL 3350 17 GM/Dose PACKET PO SCH (09:40)
[2016-11-21] MEDS: Calcium-Vit D 250 mg-125 Units Tab UD PO SCH (09:40)
[2016-11-21] MEDS: Cefepime IV 2 gm in NS 100 ML IVPB SCH (09:41)
[2016-11-21] MEDS ORDERED: Sodium Chloride 0.45% 1,000 ML IV SCH (09:45)
--- NOTE | 2016-11-21 10:32 | PN ---
DATE: 11/21/2016 SUBJECTIVE: The patient appears comfortable this morning. She is not short of breath at rest. VITALS: Temperature is 97, pulse 100, respirations 18. Blood pressure 133/86. Oxygen saturation on nasal cannula is 95%. HEENT: Normocephalic, atraumatic. No JVD. CARDIOVASCULAR: Systolic ejection murmur at the lower left sternal border. No S3 gallop. LUNGS: Crackles noted at the right base. Less rhonchi. No wheezing. EXTREMITIES: No clubbing, cyanosis, or edema. Calves are nontender to palpation. GASTROINTESTINAL: Abdomen is soft, nontender, nondistended. Bowel sounds are positive. SKIN: No acute rash. NEUROLOGIC EXAMINATION: Limited at the present time. IMPRESSION: 1. Right lower lobe pneumonia. 2. Small right pleural effusion. 3. Mild anemia. 4. Renal insufficiency. PLAN: The patient appears comfortable this morning. She is not short of breath at rest. She states she is feeling much better overall. On physical exam, her bronchospasm is certainly less. In addition, the alveolar arterial gradient is also less. Oxygen saturation on room air is now 95%. I will continue with the current nebulizer treatments for now. I would continue with the antibiotic coverage, as per infectious disease. Input by Dr. Valdovinos is noted. Cardiology and surgical evaluations are also noted. Clinical status of the patient is somewhat improved. I will discuss the above with the attending physician. Len Lobo MD cc: [id number] TT: 11/21/2016 10:32:09 Confirmation # [id number] Dictation # [id number] MTDD
--- NOTE | 2016-11-21 10:40 | CP.PCM.PN ---
<Shoshana Elizondo - Last Filed: 11/21/16 14:37> Subjective - Date & Time of Evaluation Date of Evaluation: 11/21/16 Time of Evaluation: 10:39 - Subjective Subjective: PGY-1 Medicine progress note Patient seen and examined at bedside. No acute distress. Patient is not oriented but alert. She does not have any complaints. Nurse states no events overnight, no fevers. Objective - Vital Signs/Intake and Output Vital Signs (last 24 hours): Temp Pulse Resp BP Pulse Ox 97 F L 100 H 18 133/86 95 11/21/16 06:00 11/21/16 06:00 11/21/16 06:00 11/21/16 06:00 11/21/16 06:00 Intake and Output: 11/21/16 11/21/16 06:59 18:59 Intake Total 120 Balance 120 - Medications Medications: Current Medications Atorvastatin Calcium (Lipitor) 20 mg PO DIN [facility] Calcium/Vitamin D (Oscal-D 250 Mg-125 Units Tab) 2 tab PO DAILY [facility] Last Admin: 11/21/16 09:40 Dose: Not Given Cyproheptadine HCl (Periactin) 4 mg PO TID [facility] Last Admin: 11/21/16 09:40 Dose: Not Given Docusate Sodium (Colace) 100 mg PO HS [facility] Last Admin: 11/20/16 22:39 Dose: 100 mg Donepezil HCl (Aricept) 10 mg PO HS [facility] Last Admin: 11/20/16 22:39 Dose: 10 mg Escitalopram Oxalate (Lexapro) 10 mg PO DAILY [facility] Last Admin: 11/21/16 09:39 Dose: Not Given Famotidine (Pepcid) 20 mg PO BID [facility] Last Admin: 11/21/16 09:40 Dose: Not Given Doxycycline Hyclate 100 mg/ (Sodium Chloride) 100 mls @ 100 mls/hr IVPB Q12 [facility] PRN Reason: Protocol Last Admin: 11/21/16 09:42 Dose: 100 mls/hr Cefepime HCl (Maxipime 2gm) 100 mls @ 100 mls/hr IVPB DAILY [facility] PRN Reason: Protocol Stop: 11/28/16 10:01 Last Admin: 11/21/16 09:41 Dose: 100 mls/hr Sodium Chloride (Sodium Chloride 0.45%) 1,000 mls @ 80 mls/hr IV .[id number] [facility] Last Admin: 11/21/16 09:41 Dose: 80 mls/hr Levalbuterol HCl (Xopenex) 0.63 mg IH Q2 PRN PRN Reason: Shortness of Breath Levalbuterol HCl (Xopenex) 0.63 mg IH [id number] [facility] Last Admin: 11/21/16 07:19 Dose: 0.63 mg Metoprolol Tartrate (Lopressor) 50 mg PO BID [facility] Polyethylene Glycol (Miralax) 17 gm PO DAILY [facility] Last Admin: 11/21/16 09:40 Dose: Not Given Polysaccharide Iron Complex (Ferrex-150) 150 mg PO DAILY [facility] Last Admin: 11/21/16 09:39 Dose: Not Given Ramipril (Altace) 5 mg PO DAILY [facility] - Labs Labs: 11/21/16 06:30 11/21/16 06:30 PT 34.1 Seconds (9.9-11.8) H* 11/21/16 06:30 INR 3.16 (0.93-1.08) H 11/21/16 06:30 APTT 45.4 Seconds (23.7-30.8) H 11/21/16 06:30 - Constitutional Appears: No Acute Distress, Confused, Chronically Ill - Head Exam Head Exam: ATRAUMATIC, NORMOCEPHALIC - Eye Exam Eye Exam: EOMI, Normal appearance - ENT Exam ENT Exam: Mucous Membranes Moist - Respiratory Exam Respiratory Exam: Decreased Breath Sounds (bilateral bases), Rhonchi, NORMAL BREATHING PATTERN. absent: Respiratory Distress - Cardiovascular Exam Cardiovascular Exam: REGULAR RHYTHM. absent: Tachycardia, Murmur - Extremities Exam Extremities Exam: absent: Pedal Edema Additional comments: hematoma left calf - Neurological Exam Neurological Exam: Alert, Awake. absent: Oriented x3 - Skin Skin Exam: Dry, Intact, Normal Color, Warm Assessment and Plan - Assessment and Plan (Free Text) Assessment: 81 yo female with PMH of HTN, a. fib not on anticoagulation, arthritis, hyperlipidemia, GERD and dementia presented with possible sepsis 2/2 PNA complicated with DUNIA, anemia, elevated LFTs and hematoma on left leg. Patient is aferbile with leukocytosis. Andre cultures are pending. Plan: 1. possible sepsis 2/2 PNA - afebrile with leukocytosis of 25.9 - complicated with DUNIA - cxr showed pleural effusion with possible infiltrate - started on abx cefepime, doxycycline - lactate dehydrogenase elevated, procal elevated - blood cultures negative after 24 hours - urine cultures negative - UTI on previous admission was d/c on abx, UA negative 2. Hyponatremia, DUNIA - started 1/2NS @80cc - ordered urine and serum osm, and electrolytes - nephro consulted, Dr. Sapp 3. hypotension- improved - BP was stable - received 1 liter bolus - hold altase, lopressor 4. elevated LFTs - alkaline phosphatase elevated - gallbladder/hepatic US showed possible liver mets - CT abd- sub-optimal but with multiple hepatic masses suspicious for metastasis , moderated right, small left pleural effusion, and constipation without obstruction - hold Lipitor - Dr. Sanchez, hem/onc consulted - Dr. Marisel Pacheco, IR consulted for possible biopsy 5. anemia - currently 10.1, baseline 11 - peripheral smear showed slight abnormal cells - currently stable - Dr. Sanchez, heme/onc consulted - cont monitoring 6. hematoma - on medial aspect of left leg - improved from previous admission - surgery consulted, Dr. Espitia, for possible drainage 7. A. fib - family decided to hold anticoagulation due to risk of bleed - cardiology consulted, Dr. Thao 8. constipation - no BM since admission - CT showed constipation - cont colase - start miralax ppx - pepcid GI ppx - SCDs DVT ppx <Ranjit Lira - Last Filed: 11/28/16 10:14> Objective - Vital Signs/Intake and Output Vital Signs (last 24 hours): Temp Pulse Resp BP Pulse Ox 97.9 F 109 H 18 131/85 100 11/24/16 05:37 11/24/16 05:37 11/24/16 05:37 11/24/16 05:37 11/24/16 05:37 - Labs Labs: 11/24/16 08:55 11/24/16 08:55 PT 20.4 Seconds (9.9-11.8) H 11/23/16 07:00 INR 1.89 (0.93-1.08) H 11/23/16 07:00 APTT 33.8 Seconds (23.7-30.8) H 11/23/16 07:00 Attending/Attestation - Attestation I have personally seen and examined this patient.: Yes I have fully participated in the care of the patient.: Yes I have reviewed all pertinent clinical information, including history, physical exam and plan: Yes Notes (Text): 11/28/16 10:14 Medical record note made by resident after discussion with my direction and input after patient was personally seen and examined by me. I have reviewed the chart and agree that the record reflects my personal history, physical, review of data and course for the patient.
--- NOTE | 2016-11-21 11:43 | PN ---
DATE: 11/21/2016 The patient is without symptoms. PHYSICAL EXAMINATION: VITAL SIGNS: Blood pressure is 133/86, heart rate is in the 90s, normal sinus rhythm. NECK: Negative JVD. LUNGS: Without rales. Decreased breath sounds. HEART: Revealed S1, S2. EXTREMITIES: Without change. LABORATORY DATA: BUN and creatinine is 41 and 1.7. ProBNP is ____. Hemoglobin is 10 with a white c ount of 25,000. IMPRESSION: 1. Sepsis. 2. Sinus rhythm with no evidence for atrial fibrillation. 3. Cellulitis. 4. Dementia. 5. Anemia. PLAN: Given these findings, there is no documentation throughout the chart of previous atrial fibril lation. The patient remains in normal sinus rhythm. We will discontinue telemetry today. Bubba Thao MD cc: [facility] TT: 11/21/2016 11:42:51 Confirmation # [id number] Dictation # [id number] mn
[2016-11-21] MEDS ORDERED: Lidocaine 1% Inj (20ml) IJ STA (11:57)
[2016-11-21] MEDS: Collagenase 250 Units/gm Ointment(30 gm) TOP SCH (12:27)
[2016-11-21] MEDS ORDERED: Phytonadione 10 mg/ml Inj (Adult) SC ONE (14:45)
--- NOTE | 2016-11-21 16:40 | CP.PCM.PN ---
Subjective - Date & Time of Evaluation Date of Evaluation: 11/21/16 Time of Evaluation: 08:10 - Subjective Subjective: Comfortable in bed, not in distress, afebrile overnight. Objective - Vital Signs/Intake and Output Vital Signs (last 24 hours): Temp Pulse Resp BP Pulse Ox 97 F L 67 16 146/91 H 95 11/21/16 12:00 11/21/16 12:00 11/21/16 12:00 11/21/16 12:00 11/21/16 06:00 Intake and Output: 11/21/16 11/21/16 06:59 18:59 Intake Total 120 Balance 120 - Medications Medications: Current Medications Acetaminophen (Tylenol 325mg Tab) 650 mg PO Q6H PRN PRN Reason: Pain, Mild (1-3) Atorvastatin Calcium (Lipitor) 20 mg PO DIN [facility] Calcium/Vitamin D (Oscal-D 250 Mg-125 Units Tab) 2 tab PO DAILY [facility] Last Admin: 11/21/16 09:40 Dose: Not Given Collagenase (Santyl) 0 gm TOP DAILY [facility] Last Admin: 11/21/16 12:27 Dose: Not Given Cyproheptadine HCl (Periactin) 4 mg PO TID [facility] Last Admin: 11/21/16 15:38 Dose: 4 mg Docusate Sodium (Colace) 100 mg PO HS [facility] Last Admin: 11/20/16 22:39 Dose: 100 mg Donepezil HCl (Aricept) 10 mg PO HS [facility] Last Admin: 11/20/16 22:39 Dose: 10 mg Escitalopram Oxalate (Lexapro) 10 mg PO DAILY [facility] Last Admin: 11/21/16 09:39 Dose: Not Given Famotidine (Pepcid) 20 mg PO BID [facility] Last Admin: 11/21/16 09:40 Dose: Not Given Doxycycline Hyclate 100 mg/ (Sodium Chloride) 100 mls @ 100 mls/hr IVPB Q12 [facility] PRN Reason: Protocol Last Admin: 11/21/16 09:42 Dose: 100 mls/hr Cefepime HCl (Maxipime 2gm) 100 mls @ 100 mls/hr IVPB DAILY [facility] PRN Reason: Protocol Stop: 11/28/16 10:01 Last Admin: 11/21/16 09:41 Dose: 100 mls/hr Sodium Chloride (Sodium Chloride 0.45%) 1,000 mls @ 80 mls/hr IV .[id number] [facility] Last Admin: 11/21/16 09:41 Dose: 80 mls/hr Levalbuterol HCl (Xopenex) 0.63 mg IH Q2 PRN PRN Reason: Shortness of Breath Levalbuterol HCl (Xopenex) 0.63 mg IH [id number] [facility] Last Admin: 11/21/16 13:47 Dose: Not Given Metoprolol Tartrate (Lopressor) 50 mg PO BID [facility] Phytonadione (Vitamin K Inj) 10 mg SC ONCE ONE Stop: 11/22/16 10:01 Polyethylene Glycol (Miralax) 17 gm PO DAILY [facility] Last Admin: 11/21/16 09:40 Dose: Not Given Polysaccharide Iron Complex (Ferrex-150) 150 mg PO DAILY [facility] Last Admin: 11/21/16 09:39 Dose: Not Given Ramipril (Altace) 5 mg PO DAILY [facility] - Labs Labs: 11/21/16 06:30 11/21/16 06:30 PT 34.1 Seconds (9.9-11.8) H* 11/21/16 06:30 INR 3.16 (0.93-1.08) H 11/21/16 06:30 APTT 45.4 Seconds (23.7-30.8) H 11/21/16 06:30 - Constitutional Appears: Non-toxic, No Acute Distress - Head Exam Head Exam: NORMAL INSPECTION - ENT Exam ENT Exam: Mucous Membranes Moist - Neck Exam Neck Exam: absent: Lymphadenopathy, Meningismus - Respiratory Exam Respiratory Exam: Decreased Breath Sounds - Cardiovascular Exam Cardiovascular Exam: +S1, +S2 - GI/Abdominal Exam GI & Abdominal Exam: Soft. absent: Tenderness Assessment and Plan - Assessment and Plan (Free Text) Plan: Assessment Consider severe sepsis with acute renal failure and marked leukocytosis probably secondary to right sided healthcare-associated pneumonia with possible gram positive cocci and/or gram negative bacilli with pleural effusion; patient also has a left calf hematoma R/O hepatic metastatic masses HTN dyslipidemia GERD dementia atrial fibrillation Plan continue Doxycycline and Cefepime day 2 (renally-adjusted) and gave one dose of IV Vancomycin; cultures so far are negative; PCT is elevated reviewed CT Abdomen and pelvis which shows probable hepatic metastases Will monitor clinically
--- NOTE | 2016-11-21 20:32 | CON ---
DATE: 11/21/2016 CONSULTATION REQUESTED BY: Dr. Ranjit Lira. REASON FOR CONSULTATION: Acute renal failure, hypernatremia, lactic acidosis, anemia, hypotension. HISTORY OF PRESENT ILLNESS: The patient is a patient previously unknown to me. This 81-year-old fem roberto was referred to [facility]'s Emergency Department from her snf after labs th ere revealed leukocytosis at 17,700. Reportedly, the patient had been quite weak throughout the day. She does have underlying dementia which limited a thorough history. On arrival to the ED, the rj ent was initially noted to have a blood pressure of 141/74 with a heart rate of 65, breathing at 18 b reaths per minute and with an oral temperature of 98.5, oxygen saturation was 99%. Laboratory studie s confirmed the presence of leukocytosis of 19,300 and she was noted to have 91% neutrophils with 6% bandemia. INR was supratherapeutic at 3.12. Lactic acid level was elevated at 2.2 and a chemistry p cliff had a BUN/creatinine of 45/1.8 with an LDH of 1273. Of note, the patient's creatinine had been 0.9 just 9 days earlier. Chest x-ray performed in the ED revealed a right pleural effusion that was possibly noted to have increased compared to the prior study. Ultrasound of her abdomen revealed num erous hepatic masses worrisome for metastatic disease and a CT scan of her abdomen without contrast r evealed multiple hepatic lesions suspicious for metastases as well as moderate bilateral pleural effu sions. She was also noted to have constipation, but without any evidence of bowel obstruction. The patient had blood cultures as well as urine cultures taken, none of which has had any growth to date. She was, however, noted to have a left calf hematoma which was drained at bedside. She was seen by infectious disease and empirically started on doxycycline and cefepime (renally adjusted) pending e results of cultures. Of note, since having been admitted, the patient's creatinine remains elevate d and is now 1.7. Additionally, she has become increasingly hypernatremic at 151 and lactic acid lev el has also increased from 2.2 to 2.8. A review of her hemodynamics shows that she was hypotensive a s low as 84/59 yesterday. In reviewing the medications that the patient was taking prior to admissio n, it is noted that she was on Ramipril, but not on any diuretics and does not appear to have been on any NSAIDs. There were no recent IV contrast studies either. Unfortunately, however, the patient r emains somewhat confused and cannot add any more information. REVIEW OF SYSTEMS: Could not be obtained from the patient because of her dementia, but was reviewed across all 10 systems and 14 points via the chart and is negative unless stated otherwise above. PAST MEDICAL HISTORY: Significant for hypertension, dyslipidemia, degenerative joint disease, GERD a nd atrial fibrillation for which she was reportedly not on anticoagulation prior to admission despite her elevated INR. MEDICATIONS: The patient had been taking prior to admission included simvastatin 40 mg orally nightl y, Ramipril 5 mg orally daily, metoprolol tartrate 50 mg orally twice daily, Ferrex 150 one tablet or ally daily, Lexapro 10 mg orally daily, Os-Richie 500/vitamin D3 200 one tablet orally daily, famotidine 20 mg orally twice daily, Colace 100 mg orally nightly, Aricept 10 mg orally nightly, cyproheptadine 4 mg orally 3 times a day and Tylenol 650 mg orally every 6 hours as needed. ALLERGIES: THE PATIENT REPORTED BEING ALLERGIC TO STRAWBERRIES, WHICH RESULTS IN SWELLING. SOCIAL HISTORY: Notable for the patient currently residing in a snf. There is no ongoing t obacco, alcohol or illicit drug use. FAMILY HISTORY: Negative for any inheritable renal or electrolyte disorders and was otherwise noncon tributory in this 81-year-old female. PHYSICAL EXAMINATION: GENERAL APPEARANCE: I saw the patient on telemetry. She was lying in bed at a 30 degree angle and w as periodically moaning and did appear in fact to be quite confused. VITAL SIGNS: Blood pressure is 146/91, heart rate is 67, oral temperature is 97 degrees, respiratory rate is 18, oxygen saturation is 95% on 2 liters. I's and O's were not strictly documented. The re mainder of the exam is as follows. HEENT: The patient was normocephalic and atraumatic without any sinus tenderness. Conjunctivae were mildly pale, but they were anicteric. NECK: There was no jugular venous distention that I could appreciate on exam. CHEST: Lungs amezcua had some decreased breath sounds at the bases, but the patient was not cooperati ve with deep breaths. Diaphragmatic excursion, however, as well as air flow into both lungs amezcua a ppeared to be bilaterally symmetrical. CARDIAC: Had a regular rate and rhythm without any rubs or gallops. There were no heaves and the PM I was not displaced. ABDOMEN: Mildly distended with minimal right upper quadrant tenderness, but there was no rebounding, guarding or rigidity that I could appreciate. EXTREMITIES: Had trace sacral edema. NEUROLOGIC: The patient was encephalopathic with underlying dementia. GENITOURINARY: Had no suprapubic tenderness. LABORATORY STUDIES: White count is 25.9 with an H and H of 10.1/33.2 and a platelet count of 215,000 . There are 87% neutrophils, 3% bands, 5% lymphocytes, 1% atypical lymphocytes. Sodium is now 151, potassium is 4.5, chloride is 121, bicarbonate 17, BUN/creatinine is 41/1.7 with a glucose of 65. Ca lcium is 8.7, but after adjusting for the albumin of 2.3 it corrects to 9.5. AST/ALT is 105/16, shola line phosphatase is 257. N-terminal proBNP is 4860. Procalcitonin is elevated at 2.34. Urinalysis was yellow, clear with a pH of 6.0, specific gravity of 1.020, trace protein with small bilirubin. T here is no new microbiology data to report. Imaging is as stated above. IMPRESSION AND PLAN: The patient is an 81-year-old female with a known history of hypertension, dysl ipidemia, atrial fibrillation, but not on any anticoagulation at present, although she has been in th e past, but which was on hold because of her recent hospitalization were it was supratherapeutic at g reater than 11 and dementia, admitted from her snf with abnormal labs. She was status post recent hospitalization where she had a hematoma in her left lower extremity drained as is also being done during this hospitalization as well. Of note, since being admitted the patient is noted to have acute kidney injury with hypernatremia, lactic acidosis and anemia in the setting of hypotension. S he appears to have lesions on her liver on both ultrasounds and CT scans, worrisome for metastatic di sease of unknown primary. With respect to the patient's acute kidney injury, she is clearly dehydrat ed as manifested by the fact that her sodium is elevated at 151. The increased urine specific gravit y of 1.020 is also consistent with dehydration. At present based on this morning's labs, the patient has a water deficit of approximately 2 liters. Also contributing to the acute kidney injury other t ambrosio dehydration is severe sepsis. The patient appears to have scant oral intake at present. Given t he fact that her glucose has actually been low, we can correct both her hypoglycemia as well as her a nion gap metabolic acidosis (anion gap after adjusting for the albumin of 2.3 is approximately 21) by starting the patient on D5W with 75 mEq of sodium bicarbonate per liter at 100 mL per hour for now. We will obviously discontinue her ramipril. With respect to her pleural effusions and elevated N-te rminal proBNP, we will need to monitor her volume status closely. If she becomes dyspneic, we can gi ve her furosemide on a p.r.n. basis. Our goal in this patient is to provide additional water as well as bicarbonate, but given the fact that she has evidence of hypervolemia as well (the bilateral pleu ral effusions) there would be no objection to helping with sodium excretion as well with diuretics. It is possible, however, that the pleural effusions may be malignant, given the fact that she does ap pear to have liver metastases of unclear etiology. With respect to her elevated lactic acid level it may represent type A lactic acidosis from severe sepsis or alternatively type B lactic acidosis from her liver metastases. Infectious disease followup is appreciated and the patient is on doxycycline as well as renally dosed cefepime and was also given 1 gram of vancomycin pending the blood culture r esults. Overall, the patient's prognosis remains poor, however. Given the fact that her INR is elev ated (it had been supertherapeutic during her last hospitalization) will obviously suffice for deep v enous thrombosis prophylaxis as well. For GI prophylaxis she is noted to be on famotidine. Since th e patient continues to have a hematoma in her left lower extremity from when her INR had been superth erapeutic, she was also given vitamin K and the hematoma was drained at bedside. I will be following this complex patient closely for the above complex medical problems and I thank y inga very much for the courtesy of this consultation. Deng Sapp MD cc: [id number] TT: 11/21/2016 20:31:45 Confirmation # [id number] Dictation # [id number] mn
[2016-11-21] MEDS: Sodium Bicarbonate 8.4% 75 MEQ in Dextrose 5% In Water 1,000 ML IV SCH (20:36)
--- NOTE | 2016-11-21 21:12 | CON ---
DATE: 11/21/2016 REASON FOR CONSULTATION: Multiple liver lesions, suspected malignancy. HISTORY OF PRESENT ILLNESS: The patient is an 81-year-old female with past medical history significa nt for multiple medical problems, hypertension, atrial fibrillation, not on anticoagulation, arthriti s, hyperlipidemia, GERD, as well as dementia who is admitted from the correction for lethargy as we ll as abnormal labs. She was recently discharged from the hospital for multiple other issues, but sh dejon has once again been admitted. She is unable to provide much history as she is demented. Most of t he history obtained from chart and nursing staff. Her review of systems is very limited, but she has recently lost a significant amount of weight, which is evident from her temporal wasting. PAST MEDICAL HISTORY: As above, hypertension, atrial fibrillation, arthritis, hyperlipidemia, GERD a nd dementia. ALLERGIES: No known drug allergies. SOCIAL HISTORY: Noncontributory. She is not a smoker, no alcohol use, no drug use. FAMILY HISTORY: Noncontributory. REVIEW OF SYSTEMS: As per the HPI. PHYSICAL EXAMINATION: VITAL SIGNS: Reveal a temperature of 97.0, pulse of 67, respiratory rate of 16 and a blood pressure of 146/91. GENERAL: The patient is an elderly cachectic appearing female, lying in bed, in no acute distress wi th bitemporal wasting. HEAD AND NECK: Normocephalic otherwise. EYES: Reactive to light. She does have some pallor, no icterus is noted. NECK: Supple with no adenopathy, no JVD, no thyromegaly. LUNGS: Clear to auscultation bilaterally with no rales or rhonchi. CARDIOVASCULAR: S1, S2 is heard. ABDOMEN: Positive bowel sounds, soft, nontender, nondistended. No organomegaly is palpated. EXTREMITIES: There is no edema. However, she does have a hematoma. LABORATORY DATA: White count is 25.9, hemoglobin 10.1, hematocrit of 33.2, MCV of 89.0 and a platele t count of 215. Coag studies are revealing of INR of 3.1. Her BUN and creatinine are 41 and 1.7. S odium is elevated at 151. Also, her alk phos is markedly elevated as is the AST. CT of the abdomen is reviewed which has been done without contrast, but still is consistent with multiple low attenuati on lesions consistent with metastatic disease. ASSESSMENT AND PLAN: Elderly female with multiple liver lesions. Will need a biopsy of the liver le jackie. Currently, though patient's INR is over 3. Would hold off until her INR has improved. Hold vitamin K in this patient as she does have atrial fibrillation and the risk of clotting is too high i f she is to get a reversal of anticoagulation. Overall, prognosis on this patient is poor considerin g multiple medical issues. She would not be a candidate for palliative treatment anyway. She needs further workup to determine the primary. Thank you for the consult. We will follow. Fela Sanchez MD cc: [id number] TT: 11/21/2016 21:12:32 Confirmation # [id number] Dictation # [id number] mn
[2016-11-22] MEDS: Levalbuterol 0.63 MG/3 ML Inhal Soln UD IH SCH ×4 (03:00→19:50)
[2016-11-22] MEDS: Sodium Bicarbonate 8.4% 75 MEQ in Dextrose 5% In Water 1,000 ML IV SCH (06:52)
[2016-11-22 07:40] LABS: ADD MANUAL DIFF? NO
[2016-11-22 07:48] LABS: BASO # 0.05 K/mm3 (0.0-2.0); BASO % 0.2 % (0.0-3.0); EOS # 0.2 (0.0-0.7); EOS % 0.7 % (1.5-5.0); GRAN # 20.63 (1.4-6.5); GRAN % 89.8 % (50.0-68.0); HEMATOCRIT 28.6 % (36.0-48.0); LYMPH # 0.9 (1.2-3.4); LYMPH % 3.9 % (22.0-35.0); MEAN CELL VOLUME 87.2 fL (80.0-105.0); MEAN CORPUSCULAR HEMOGLOBIN 27.4 pg (25.0-35.0); MEAN CORPUSCULAR HGB CONC 31.5 g/dl (31.0-37.0); MEAN PLATELET VOLUME 9.4 fl (7.0-11.0); MONO # 1.3 (0.1-0.6); MONO % 5.4 % (1.0-6.0); PLATELET COUNT 146 10^3/uL (120.0-450.0); RED CELL DISTRIBUTION WIDTH 21.3 % (11.5-14.5)
[2016-11-22 08:11] LABS: ALB/GLOB RATIO 0.6 (1.1-1.8); BILIRUBIN,TOTAL 1.1 mg/dL (0.2-1.3); CALCIUM 8.7 mg/dL (8.4-10.5); POTASSIUM 4.1 mmol/L (3.6-5.0); TOTAL PROTEIN 5.6 g/dL (5.8-8.3)
--- NOTE | 2016-11-22 08:13 | PN ---
DATE: 11/22/2016 SUBJECTIVE: The patient appears comfortable this morning. She is not short of breath at rest. PHYSICAL EXAMINATION: VITAL SIGNS (last noted in the computer): Temperature is 97.0, pulse 67, respirations 16, blood pressure 146/91. Oxygen saturation on nasal cannula is 95%. HEENT: Normocephalic, atraumatic. No JVD. CARDIOVASCULAR: Systolic ejection murmur at the lower left sternal border. No S3 gallop. LUNGS: Crackles noted at the right base. Minimal/less rhonchi. No wheezing. EXTREMITIES: No clubbing, cyanosis, or edema. Calves are nontender to palpation. GASTROINTESTINAL: Abdomen is soft, nontender, nondistended. Bowel sounds are positive. SKIN: No acute rash. NEUROLOGIC: Limited at the present time. PERTINENT LABORATORY DATA: Abdominal CAT scan was done and reviewed. There is a small to moderate right pleural effusion, and a small left pleural effusion noted. There is adjacent compressive atelectasis at both bases. There are multiple hepatic masses suspicious for metastasis. IMPRESSION: 1. Rule out right lower lobe pneumonia. 2. Bilateral pleural effusions. 3. Mild anemia. 4. Renal insufficiency. 5. Multiple hepatic masses. PLAN: The patient appears comfortable this morning. She is not short of breath at rest. She does state to feeling better overall. On physical exam, her bronchospasm is certainly less. In addition, there is no significant alveolar-arterial gradient. I will continue with the current nebulizer treatments for now. I did review the CAT scan of the abdomen. There is a small to moderate right pleural effusion seen, as well as a small left pleural effusion. There is adjacent compressive atelectasis at both bases. As above, there are also multiple hepatic masses noted. Dr. Bubba Pacheco (interventional radiology) has been called on the case for CAT scan guided biopsy (of the liver masses). I would continue with the antibiotic coverage as per infectious disease. There are no temperatures noted. The leukocytosis is decreased. Surgical, GI, and cardiology evaluations are noted. Clinical status of the patient is improved -- compared to the initial presentation. However, the overall status/prognosis of this patient remains very guarded at best. I will discuss the above with the attending physician. Len Lobo MD cc: [id number] TT: 11/22/2016 08:11:58 Confirmation # [id number] Dictation # [id number] en MTDD
[2016-11-22] MEDS ORDERED: Phytonadione 10 mg/ml Inj (Adult) SC ONE (10:00)
--- NOTE | 2016-11-22 10:19 | CP.PCM.PN ---
Subjective - Date & Time of Evaluation Date of Evaluation: 11/22/16 Time of Evaluation: 10:19 - Subjective Subjective: PGY-1 Medicine progress note. Patient seen and examined at bedside. No acute distress. Nurse reports no events overnight. Patient denies any complaints however she is confused, she is alert but not oriented. I spoke with family yesterday they are aware of her situation. Objective - Vital Signs/Intake and Output Vital Signs (last 24 hours): Temp Pulse Resp BP Pulse Ox 97 F L 67 16 146/91 H 95 11/21/16 12:00 11/21/16 12:00 11/21/16 12:00 11/21/16 12:00 11/21/16 06:00 Intake and Output: 11/22/16 11/22/16 06:59 18:59 Intake Total 1190 Balance 1190 - Medications Medications: Current Medications Acetaminophen (Tylenol 325mg Tab) 650 mg PO Q6H PRN PRN Reason: Pain, Mild (1-3) Atorvastatin Calcium (Lipitor) 20 mg PO DIN [facility] Calcium/Vitamin D (Oscal-D 250 Mg-125 Units Tab) 2 tab PO DAILY [facility] Last Admin: 11/21/16 09:40 Dose: Not Given Collagenase (Santyl) 0 gm TOP DAILY [facility] Last Admin: 11/21/16 12:27 Dose: Not Given Cyproheptadine HCl (Periactin) 4 mg PO TID [facility] Last Admin: 11/21/16 18:30 Dose: Not Given Docusate Sodium (Colace) 100 mg PO HS [facility] Last Admin: 11/21/16 22:55 Dose: Not Given Donepezil HCl (Aricept) 10 mg PO HS [facility] Last Admin: 11/21/16 22:55 Dose: Not Given Escitalopram Oxalate (Lexapro) 10 mg PO DAILY [facility] Last Admin: 11/21/16 09:39 Dose: Not Given Famotidine (Pepcid) 20 mg PO BID [facility] Last Admin: 11/21/16 18:30 Dose: Not Given Doxycycline Hyclate 100 mg/ (Sodium Chloride) 100 mls @ 100 mls/hr IVPB Q12 [facility] PRN Reason: Protocol Last Admin: 11/21/16 23:08 Dose: 100 mls/hr Cefepime HCl (Maxipime 2gm) 100 mls @ 100 mls/hr IVPB DAILY [facility] PRN Reason: Protocol Stop: 11/28/16 10:01 Last Admin: 11/21/16 09:41 Dose: 100 mls/hr Sodium Bicarbonate 75 meq/ (Dextrose) 1,075 mls @ 100 mls/hr IV .[id number] [facility] Last Admin: 11/22/16 06:52 Dose: 100 mls/hr Levalbuterol HCl (Xopenex) 0.63 mg IH Q2 PRN PRN Reason: Shortness of Breath Levalbuterol HCl (Xopenex) 0.63 mg IH [id number] [facility] Last Admin: 11/22/16 07:53 Dose: Not Given Metoprolol Tartrate (Lopressor) 50 mg PO BID [facility] Polyethylene Glycol (Miralax) 17 gm PO DAILY [facility] Last Admin: 11/21/16 09:40 Dose: Not Given Polysaccharide Iron Complex (Ferrex-150) 150 mg PO DAILY [facility] Last Admin: 11/21/16 09:39 Dose: Not Given - Labs Labs: 11/22/16 07:00 11/22/16 07:00 PT 34.1 Seconds (9.9-11.8) H* 11/21/16 06:30 INR 3.16 (0.93-1.08) H 11/21/16 06:30 APTT 45.4 Seconds (23.7-30.8) H 11/21/16 06:30 - Constitutional Appears: No Acute Distress, Confused, Cachectic - Head Exam Head Exam: ATRAUMATIC, NORMOCEPHALIC - Eye Exam Eye Exam: Normal appearance - ENT Exam ENT Exam: Mucous Membranes Moist - Respiratory Exam Respiratory Exam: Decreased Breath Sounds, Clear to Ausculation Bilateral, NORMAL BREATHING PATTERN. absent: Rhonchi, Wheezes, Respiratory Distress - Cardiovascular Exam Cardiovascular Exam: Irregular Rhythm. absent: Tachycardia, REGULAR RHYTHM, Murmur - GI/Abdominal Exam GI & Abdominal Exam: Soft, Normal Bowel Sounds. absent: Distended, Guarding, Tenderness - Extremities Exam Extremities Exam: Normal Inspection. absent: Pedal Edema - Neurological Exam Neurological Exam: Alert, Awake. absent: Oriented x3 - Skin Skin Exam: Intact, Normal Color, Petechiae, Warm Assessment and Plan - Assessment and Plan (Free Text) Assessment: 81 yo female with PMH of HTN, a. fib not on anticoagulation, arthritis, hyperlipidemia, GERD and dementia presented with sepsis 2/2 PNA complicated with DUNIA, anemia, elevated LFTs and hematoma on left leg. Patient is aferbile with leukocytosis. Blood and urine cultures are negative. CT abd showed metastatic liver masses. Hematoma was drained yesterday per surgery. Plan: 1. possible sepsis 2/2 PNA - afebrile with leukocytosis of 23 - complicated with DUNIA - cxr on admission showed pleural effusion with possible infiltrate - started on abx cefepime, doxycycline - lactate dehydrogenase elevated, procal elevated - blood cultures negative after 48 hours - urine cultures negative - UTI on previous admission was d/c on abx, UA negative 2. Hyponatremia, DUNIA - started on D5W with bicarb @100 overnight - sodium improved to 149 today - urine and serum osm, and electrolytes pending - nephro consulted, Dr. Sapp 3. Liver masses - LFTs trending down - gallbladder/hepatic US showed possible liver mets - CT abd- sub-optimal but with multiple hepatic masses suspicious for metastasis , moderated right, small left pleural effusion, and constipation without obstruction - hold Lipitor - Dr. Sanchez, hem/onc consulted - Dr. Marisel Pacheco, IR consulted - Biospy scheduled for - palliative care nurse consulted - patient received vit K yesterday to decrease INR 4. anemia - currently 9, baseline 11 - peripheral smear showed slight abnormal cells - Dr. Sanchez, heme/onc consulted - cont monitoring 5. hematoma - on medial aspect of left leg - improved from previous admission - drained per surgery yesterday - wound cultures pending - surgery consulted, Dr. Espitia 6. A. fib - family decided to hold anticoagulation due to risk of bleed - patient received vit K yesterday - cardiology consulted, Dr. Thao 7. hypotension- improved - BP was stable - hold altase, lopressor 8. constipation - no BM since admission - CT showed constipation - cont colase and miralax ppx - pepcid GI ppx - DVT ppx- SCDs, supratheraputic INR
[2016-11-22 10:36] LABS: INR 2.52 (0.93-1.08)
[2016-11-22] MEDS: Iron Complex Polysacch 150mg Cap PO SCH (11:03)
[2016-11-22] MEDS: Collagenase 250 Units/gm Ointment(30 gm) TOP SCH (11:18)
[2016-11-22] MEDS: Calcium-Vit D 250 mg-125 Units Tab UD PO SCH (11:19)
[2016-11-22] MEDS: Cefepime IV 2 gm in NS 100 ML IVPB SCH (11:20)
[2016-11-22] MEDS: POLYETHYLENE GLYCOL 3350 17 GM/Dose PACKET PO SCH (11:21)
--- NOTE | 2016-11-22 11:47 | CP.PCM.PN ---
Subjective - Date & Time of Evaluation Date of Evaluation: 11/22/16 Time of Evaluation: 10:30 - Subjective Subjective: Pt seen and evaluated at the bedside. Pt denies complaints but ROS was limited due to dementia. Afebrile. Objective - Vital Signs/Intake and Output Vital Signs (last 24 hours): Temp Pulse Resp BP Pulse Ox 97 F L 67 16 146/91 H 95 11/21/16 12:00 11/21/16 12:00 11/21/16 12:00 11/21/16 12:00 11/21/16 06:00 Intake and Output: 11/22/16 11/22/16 06:59 18:59 Intake Total 1190 Balance 1190 - Medications Medications: Current Medications Acetaminophen (Tylenol 325mg Tab) 650 mg PO Q6H PRN PRN Reason: Pain, Mild (1-3) Atorvastatin Calcium (Lipitor) 20 mg PO DIN [facility] Calcium/Vitamin D (Oscal-D 250 Mg-125 Units Tab) 2 tab PO DAILY [facility] Last Admin: 11/22/16 11:19 Dose: Not Given Collagenase (Santyl) 0 gm TOP DAILY [facility] Last Admin: 11/22/16 11:18 Dose: 1 applic Cyproheptadine HCl (Periactin) 4 mg PO TID [facility] Last Admin: 11/22/16 11:19 Dose: Not Given Docusate Sodium (Colace) 100 mg PO HS [facility] Last Admin: 11/21/16 22:55 Dose: Not Given Donepezil HCl (Aricept) 10 mg PO HS [facility] Last Admin: 11/21/16 22:55 Dose: Not Given Escitalopram Oxalate (Lexapro) 10 mg PO DAILY [facility] Last Admin: 11/22/16 11:03 Dose: Not Given Famotidine (Pepcid) 20 mg PO BID [facility] Last Admin: 11/22/16 11:19 Dose: Not Given Doxycycline Hyclate 100 mg/ (Sodium Chloride) 100 mls @ 100 mls/hr IVPB Q12 [facility] PRN Reason: Protocol Last Admin: 11/22/16 11:16 Dose: 100 mls/hr Cefepime HCl (Maxipime 2gm) 100 mls @ 100 mls/hr IVPB DAILY [facility] PRN Reason: Protocol Stop: 11/28/16 10:01 Last Admin: 11/22/16 11:20 Dose: 100 mls/hr Sodium Bicarbonate 75 meq/ (Dextrose) 1,075 mls @ 100 mls/hr IV .[id number] [facility] Last Admin: 11/22/16 06:52 Dose: 100 mls/hr Levalbuterol HCl (Xopenex) 0.63 mg IH Q2 PRN PRN Reason: Shortness of Breath Levalbuterol HCl (Xopenex) 0.63 mg IH [id number] [facility] Last Admin: 11/22/16 07:53 Dose: Not Given Metoprolol Tartrate (Lopressor) 50 mg PO BID [facility] Polyethylene Glycol (Miralax) 17 gm PO DAILY [facility] Last Admin: 11/22/16 11:21 Dose: Not Given Polysaccharide Iron Complex (Ferrex-150) 150 mg PO DAILY [facility] Last Admin: 11/22/16 11:03 Dose: Not Given - Labs Labs: 11/22/16 07:00 11/22/16 07:00 PT 27.2 Seconds (9.9-11.8) H 11/22/16 10:15 INR 2.52 (0.93-1.08) H 11/22/16 10:15 APTT 45.4 Seconds (23.7-30.8) H 11/21/16 06:30 - Additional Findings Additional findings: - Constitutional Appears: Non-toxic, No Acute Distress, Older Than Stated Age, Confused, Chronically Ill - Head Exam Head Exam: NORMAL INSPECTION - Eye Exam Eye Exam: Normal appearance - ENT Exam ENT Exam: Mucous Membranes Moist - Respiratory Exam Respiratory Exam: NORMAL BREATHING PATTERN. absent: Accessory Muscle Use, Respiratory Distress - Cardiovascular Exam Cardiovascular Exam: Irregular Rhythm - GI/Abdominal Exam GI & Abdominal Exam: Soft. absent: Distended - Extremities Exam Additional comments: 5cm area of reduced fluid collection. Tenderness when LLE moved. No discharge - Neurological Exam Neurological exam: Alert, Altered (dementia) - Skin Skin Exam: Dry, Intact, Warm Assessment and Plan - Assessment and Plan (Free Text) Plan: 81 yo F w/PMHx w/LLE hematoma: - 75 cc of hematoma was aspirated on 11/21/2016 - warm compresses - dressed w/Santyl daily - cont medical management further recs as per Dr. Omkar Cabrera PGY1
--- NOTE | 2016-11-22 12:41 | CP.PCM.CON ---
History of Present Illness - History of Present Illness History of Present Illness: Palliative services consulted by Dr Jared Lira Reason: Goals of care 81 year old resident of [facility] sent for evaluation of leukocytosis. [facility] staff also reports patient to be weak, lethargic. CT showed small bilateral pleural effusions,atelectasis,multiple hepatic masses suspicious for metastasis, constipation. Labs; leukocytosis,anemia,elevated BUN, Creatinine and LFT's, BNP 4860, hypernatremia, hypoalbunemia PMHx: Atrial fibrillation,HTN,GERD, dementia Social History: Non smoker, no alcohol or drug use.Lives in an assisted living facility Family History: Non contributory. Advance Care Planning: The patient has a POLST She is DNR/DNI. Her daughter Gin Alicea and son, Melecio Cast are POA's Review of Systems: Patient has advanced dementia, unable to obtain. Past Patient History - Infectious Disease Hx of Infectious Diseases: None - Tetanus Immunizations Tetanus Immunization: Unknown - Past Medical History & Family History Past Medical History?: Yes - Past Social History Smoking Status: Unknown If Ever Smoked - CARDIAC Hx Cardiac Disorders: Yes (afib) Hx Hypertension: Yes - PULMONARY Hx Respiratory Disorders: No - NEUROLOGICAL Hx Neurological Disorder: No Hx Dementia: Yes - HEENT Hx HEENT Problems: No - RENAL Hx Chronic Kidney Disease: No - ENDOCRINE/METABOLIC Hx Diabetes Mellitus Type 1: Yes - HEMATOLOGICAL/ONCOLOGICAL Hx Blood Disorders: No - INTEGUMENTARY Hx Dermatological Problems: No - MUSCULOSKELETAL/RHEUMATOLOGICAL Hx Arthritis: Yes - GASTROINTESTINAL Hx Gastroesophageal Reflux: Yes - GENITOURINARY/GYNECOLOGICAL Hx Incontinence: Yes - PSYCHIATRIC Hx Substance Use: No Other/Comment: dementia - SURGICAL HISTORY Hx Orthopedic Surgery: Yes - ANESTHESIA Hx Anesthesia: Yes Hx Anesthesia Reactions: No Hx Malignant Hyperthermia: No Meds Allergies/Adverse Reactions: Allergies Allergy/AdvReac Type Severity Reaction Status Date / Time strawberry AdvReac SWELLING Verified 11/07/16 21:58 - Medications Medications: Current Medications Acetaminophen (Tylenol 325mg Tab) 650 mg PO Q6H PRN PRN Reason: Pain, Mild (1-3) Atorvastatin Calcium (Lipitor) 20 mg PO DIN [facility] Collagenase (Santyl) 0 gm TOP DAILY [facility] Last Admin: 11/22/16 11:18 Dose: 1 applic Cyproheptadine HCl (Periactin) 4 mg PO TID [facility] Last Admin: 11/22/16 11:19 Dose: Not Given Docusate Sodium (Colace) 100 mg PO HS [facility] Last Admin: 11/21/16 22:55 Dose: Not Given Donepezil HCl (Aricept) 10 mg PO HS [facility] Last Admin: 11/21/16 22:55 Dose: Not Given Escitalopram Oxalate (Lexapro) 10 mg PO DAILY [facility] Last Admin: 11/22/16 11:03 Dose: Not Given Famotidine (Pepcid) 20 mg PO BID [facility] Last Admin: 11/22/16 11:19 Dose: Not Given Doxycycline Hyclate 100 mg/ (Sodium Chloride) 100 mls @ 100 mls/hr IVPB Q12 [facility] PRN Reason: Protocol Last Admin: 11/22/16 11:16 Dose: 100 mls/hr Cefepime HCl (Maxipime 2gm) 100 mls @ 100 mls/hr IVPB DAILY [facility] PRN Reason: Protocol Stop: 11/28/16 10:01 Last Admin: 11/22/16 11:20 Dose: 100 mls/hr Dextrose (Dextrose 5% In Water 1000 Ml) 1,000 mls @ 50 mls/hr IV .Q20H [facility] Levalbuterol HCl (Xopenex) 0.63 mg IH Q2 PRN PRN Reason: Shortness of Breath Levalbuterol HCl (Xopenex) 0.63 mg IH [id number] [facility] Last Admin: 11/22/16 07:53 Dose: Not Given Metoprolol Tartrate (Lopressor) 50 mg PO BID [facility] Polyethylene Glycol (Miralax) 17 gm PO DAILY [facility] Last Admin: 11/22/16 11:21 Dose: Not Given Polysaccharide Iron Complex (Ferrex-150) 150 mg PO DAILY [facility] Last Admin: 11/22/16 11:03 Dose: Not Given Physical Exam - Constitutional Appears: Cachectic, Chronically Ill - Eye Exam Eye Exam: Normal appearance, PERRL - ENT Exam ENT Exam: Mucous Membranes Moist, Normal Oropharynx - Neck Exam Neck exam: Positive for: Normal Inspection - Respiratory Exam Respiratory Exam: Decreased Breath Sounds, NORMAL BREATHING PATTERN - Cardiovascular Exam Cardiovascular Exam: REGULAR RHYTHM, +S1, +S2 - GI/Abdominal Exam GI & Abdominal Exam: Normal Bowel Sounds, Soft Additional comments: mild tenderness RUQ when palpated - Extremities Exam Additional comments: resolving hematoma LLE, - Skin Skin Exam: Dry, Pallor - Additional Findings Additional findings: Palliative performance scale rating 30 % Results - Vital Signs Recent Vital Signs: Last Vital Signs Temp 97 F L 11/21/16 12:00 Pulse 67 11/21/16 12:00 Resp 16 11/21/16 12:00 BP 146/91 H 11/21/16 12:00 Pulse Ox 95 11/21/16 06:00 - Labs Result Diagrams: 11/22/16 07:00 11/22/16 07:00 Labs: Laboratory Results - last 24 hr 11/22/16 11/22/16 07:00 10:15 WBC 23.0 H RBC 3.28 L Hgb 9.0 L Hct 28.6 L MCV 87.2 MCH 27.4 MCHC 31.5 RDW 21.3 H Plt Count 146 MPV 9.4 Gran % 89.8 H Lymph % (Auto) 3.9 L [place] % (Auto) 5.4 Eos % (Auto) 0.7 L Baso % (Auto) 0.2 Gran # 20.63 H Lymph # 0.9 L [place] # 1.3 H Eos # 0.2 Baso # 0.05 PT 27.2 H INR 2.52 H Sodium 149 H Potassium 4.1 Chloride 119 H Carbon Dioxide 21 Anion Gap 13 BUN 38 H Creatinine 1.5 H Est GFR ( Amer) 40 Est GFR (Non-Af Amer) 33 Random Glucose 126 H Calcium 8.7 Total Bilirubin 1.1 AST 73 H ALT 16 Alkaline Phosphatase 197 H Total Protein 5.6 L Albumin 2.1 L Globulin 3.6 Albumin/Globulin Ratio 0.6 L Assessment & Plan - Assessment and Plan (Free Text) Assessment: 81 year old female admitted with sepsis,pleural effusions,weakness,cachexia, new finding of liver masses suspicious for metastatic disease. Patient is weak, cachectic, appetite poor. She does not open her eyes, responds with one word answers to simple questions. She moans when examined. Constipated , disimpacted moderate amount of hard stool. Multiple medical problems, advanced dementia, new liver masses. Patient een multiple consultants. Prognosis is poor. Patient is appropriate for hospice care. Terrie's daughter Gin expected to visit this afternoon. Will speak with family about goals of care and offer option for comfort care at that time Plan: Ducolax suppository now. Will assist family with establishing future goals of care - Date & Time Date: 11/22/16 Time: 12:00
--- NOTE | 2016-11-22 12:53 | PN ---
DATE: 11/22/2016 SUBJECTIVE: The patient was seen on a general medical floor. She is lying in bed at a 30 degree ang le. She does not appear to be in any pain. She is talking gibberish though. She is currently recei ving intravenous fluids containing bicarbonate, but does not appear to be dyspneic. OBJECTIVE: VITAL SIGNS: As follows: Blood pressure is 146/91, heart rate 67, oral temperature 97 degrees, resp iratory rate is 18, oxygen saturation is 95%. I's and O's were not strictly documented. The remaind er of the exam was as follows: HEENT: The patient was normocephalic and atraumatic. There was no sinus tenderness that I could kalli reciate on exam. Conjunctivae were neither pale nor nonicteric. There was no jugular venous distent ion either. LUNGS: Yoo had diminished breath sounds when auscultated anteriorly, but there was no wheezing or rhonchi. CARDIAC: Had a regular rate and rhythm. ABDOMEN: Soft, distended, but nontender, without any rebounding, guarding or rigidity. There was mi ld hepatomegaly. EXTREMITIES: Had 1+ edema. NEUROLOGIC: The patient clearly had underlying dementia, but did not appear to be otherwise focal an d not cooperative with a full exam. VASCULAR: Had no bruits. LABORATORY STUDIES: As follows: White count is 23,000. H and H is 9/28.6 with a platelet count of 146,000. There are 90% neutrophils, 4% lymphocytes, 5% monocytes. INR is 2.52. Sodium is 149, pota ssium is 4.1, chloride is 119, bicarbonate 21, BUN/creatinine is 38/1.5 with a glucose of 126. Calci um is 8.7, but since the albumin is 2.1, corrects to 10.3, which is elevated. Total protein/albumin is 5.6/2.1. Blood cultures remain negative. There is no new imaging to report. IMPRESSION AND PLAN: The patient is an 81-year-old female with a known history of hypertension, dysl ipidemia, advanced Alzheimer dementia, atrial fibrillation for which she had been on Coumadin in the past, but was held following her last hospitalization here at [facility] when she was not ed to have a supratherapeutic INR as well as a left lower extremity hematoma. [facility] [place] [facility] home to [facility] after laboratory studies revealed leukocytosis with hypernatrem ia and acute kidney injury. 1. Cultures thus far remain negative. The patient's abdominal ultrasound and CT ____ scan do reveal numerous liver lesions worrisome for metastases with an unknown primary and it is possible that her leukocytosis may represent a leukemoid reaction. 2. The patient does have edema and does have pleural effusions. Given the fact that her bicarbonate has increased to 21, we can discontinue intravenous fluids containing sodium chloride at this time, especially given her hypervolemia as manifested by edema, bilateral pleural effusions and increased N -terminal proBNP. Instead, since she appears to have minimal oral intake, she will require either na sogastric tube with water to be given or D5W. A nasogastric tube would be preferable; however, until it is inserted, we will start her on D5W. 3. Based on patient's current laboratory studies today, she is noted to have a free water deficit of 1.5 liters and I will start her on D5W at 50 mL per hour for the time being. 4. The patient's calcium is high normal and we will thus discontinue her calcium carbonate. She may have humoral hypercalcemia of malignancy and we will check a PTH-related peptide. She is also noted to have an elevated total protein versus albumin ratio and although this may represent polyclonal ga mmopathy of sepsis, we will check serum protein electrophoresis, serum immunofixation and serum free light chains. 5. Hematology/oncology consultation is appreciated and once the patient's INR has decreased, she is to have a biopsy of her liver lesions. It has been recommended that we hold vitamin K given if her c oagulopathy were to be reversed, it would make her even more hypocoagulable than she had been. 6. For now, the elevated INR is sufficing for deep venous thrombosis prophylaxis and for gastrointes tinal prophylaxis, the patient is on famotidine 20 mg orally twice daily. Via the chart, review of systems, past medical history, social history and family history were all re viewed and there were no new changes. Deng Sapp MD cc: [id number] TT: 11/22/2016 12:52:30 Confirmation # [id number] Dictation # [id number]
[2016-11-23 07:33] LABS: BASO # 0.05 K/mm3 (0.0-2.0); BASO % 0.2 % (0.0-3.0); EOS # 0.1 (0.0-0.7); EOS % 0.6 % (1.5-5.0); GRAN # 22.88 (1.4-6.5); GRAN % 90.7 % (50.0-68.0); HEMATOCRIT 31.8 % (36.0-48.0); LYMPH # 0.9 (1.2-3.4); LYMPH % 3.7 % (22.0-35.0); MEAN CELL VOLUME 87.1 fL (80.0-105.0); MEAN CORPUSCULAR HEMOGLOBIN 27.4 pg (25.0-35.0); MEAN CORPUSCULAR HGB CONC 31.4 g/dl (31.0-37.0); MEAN PLATELET VOLUME 9.8 fl (7.0-11.0); MONO # 1.2 (0.1-0.6); MONO % 4.8 % (1.0-6.0); PLATELET COUNT 108 10^3/uL (120.0-450.0); RED CELL DISTRIBUTION WIDTH 21.5 % (11.5-14.5)
[2016-11-23 07:45] LABS: WHITE BLOOD COUNT 25.2 10^3/ul (4.5-11.0)
[2016-11-23 07:46] LABS: ADD MANUAL DIFF? NO; INR 1.89 (0.93-1.08); PARTIAL THROMBOPLASTIN TIME 33.8 Seconds (23.7-30.8)
[2016-11-23 07:50] LABS: BILIRUBIN,TOTAL 2.1 mg/dL (0.2-1.3); CALCIUM 9.3 mg/dL (8.4-10.5); POTASSIUM 3.9 mmol/L (3.6-5.0); TOTAL PROTEIN 6.3 g/dL (5.8-8.3)
[2016-11-23 07:51] LABS: ALB/GLOB RATIO 0.5 (1.1-1.8)
--- NOTE | 2016-11-23 07:58 | CP.PCM.PN ---
Subjective - Date & Time of Evaluation Date of Evaluation: 11/23/16 Time of Evaluation: 06:30 - Subjective Subjective: Pt seen and evaluated at bedside. Low appetite. No vomiting. Afebrile overnight. Objective - Vital Signs/Intake and Output Vital Signs (last 24 hours): Temp Pulse Resp BP Pulse Ox 98 F 72 18 160/70 H 95 11/22/16 16:00 11/22/16 16:00 11/22/16 16:00 11/22/16 16:00 11/22/16 16:00 Intake and Output: 11/23/16 11/23/16 06:59 18:59 Intake Total 160 Balance 160 - Medications Medications: Current Medications Acetaminophen (Tylenol 325mg Tab) 650 mg PO Q6H PRN PRN Reason: Pain, Mild (1-3) Atorvastatin Calcium (Lipitor) 20 mg PO DIN [facility] Collagenase (Santyl) 0 gm TOP DAILY [facility] Last Admin: 11/22/16 11:18 Dose: 1 applic Cyproheptadine HCl (Periactin) 4 mg PO TID [facility] Last Admin: 11/22/16 17:03 Dose: Not Given Docusate Sodium (Colace) 100 mg PO HS [facility] Last Admin: 11/22/16 22:07 Dose: 100 mg Donepezil HCl (Aricept) 10 mg PO HS [facility] Last Admin: 11/22/16 22:09 Dose: 10 mg Escitalopram Oxalate (Lexapro) 10 mg PO DAILY [facility] Last Admin: 11/22/16 11:03 Dose: Not Given Famotidine (Pepcid) 20 mg PO BID [facility] Last Admin: 11/22/16 17:03 Dose: Not Given Doxycycline Hyclate 100 mg/ (Sodium Chloride) 100 mls @ 100 mls/hr IVPB Q12 [facility] PRN Reason: Protocol Last Admin: 11/22/16 22:09 Dose: 100 mls/hr Cefepime HCl (Maxipime 2gm) 100 mls @ 100 mls/hr IVPB DAILY [facility] PRN Reason: Protocol Stop: 11/28/16 10:01 Last Admin: 11/22/16 11:20 Dose: 100 mls/hr Dextrose (Dextrose 5% In Water 1000 Ml) 1,000 mls @ 50 mls/hr IV .Q20H [facility] Last Admin: 11/22/16 14:04 Dose: 50 mls/hr Levalbuterol HCl (Xopenex) 0.63 mg IH Q2 PRN PRN Reason: Shortness of Breath Levalbuterol HCl (Xopenex) 0.63 mg IH [id number] [facility] Last Admin: 11/22/16 19:50 Dose: Not Given Metoprolol Tartrate (Lopressor) 50 mg PO BID [facility] Polyethylene Glycol (Miralax) 17 gm PO DAILY [facility] Last Admin: 11/22/16 11:21 Dose: Not Given Polysaccharide Iron Complex (Ferrex-150) 150 mg PO DAILY [facility] Last Admin: 11/22/16 11:03 Dose: Not Given - Labs Labs: 11/23/16 07:00 11/23/16 07:00 PT 20.4 Seconds (9.9-11.8) H 11/23/16 07:00 INR 1.89 (0.93-1.08) H 11/23/16 07:00 APTT 33.8 Seconds (23.7-30.8) H 11/23/16 07:00 - Additional Findings Additional findings: - Constitutional Appears: Non-toxic, No Acute Distress, Older Than Stated Age, Confused, Chronically Ill - Head Exam Head Exam: NORMAL INSPECTION - Eye Exam Eye Exam: Normal appearance - ENT Exam ENT Exam: Mucous Membranes Moist - Respiratory Exam Respiratory Exam: NORMAL BREATHING PATTERN. absent: Accessory Muscle Use, Respiratory Distress - Cardiovascular Exam Cardiovascular Exam: Irregular Rhythm - GI/Abdominal Exam GI & Abdominal Exam: Soft. absent: Distended - Extremities Exam Additional comments: 5cm area of reduced fluid collection. Tenderness when LLE moved. - Neurological Exam Neurological exam: Alert, Altered (dementia) - Skin Skin Exam: Dry, Intact, Warm Assessment and Plan - Assessment and Plan (Free Text) Plan: 81 yo F w/PMHx w/LLE hematoma: - 75 cc of hematoma was aspirated on 11/21/2016 - warm compresses - dressed w/Santyl daily - cont medical management further recs as per Dr. Omkar Cabrera PGY1
[2016-11-23] MEDS: Levalbuterol 0.63 MG/3 ML Inhal Soln UD IH SCH ×3 (08:13→19:51)
--- NOTE | 2016-11-23 08:27 | PN ---
DATE: 11/23/2016 SUBJECTIVE: The patient appears comfortable this morning. She is not short of breath at rest. PHYSICAL EXAMINATION: VITAL SIGNS: Temperature is 98.0, pulse 72, respirations 18, blood pressure 160 /70. Oxygen saturation on nasal cannula is 95%. HEENT: Normocephalic, atraumatic. No JVD. CARDIOVASCULAR: Systolic ejection murmur at the lower left sternal border. No S3 gallop. LUNGS: Crackles noted at the right base. Very minimal/less rhonchi. No wheezing. EXTREMITIES: No clubbing, cyanosis, or edema. Calves are nontender to palpation. GASTROINTESTINAL: Abdomen is soft, nontender, nondistended. Bowel sounds are positive. SKIN: No acute rash. NEUROLOGIC: Limited at the present time. IMPRESSION: 1. Rule out right lower lobe pneumonia. 2. Bilateral pleural effusions. 3. Mild anemia. 4. Renal insufficiency. 5. Multiple hepatic masses. PLAN: The patient appears comfortable this morning. She is not short of breath at rest. On physical exam, her bronchospasm is certainly less. In addition, there is no significant alveolar-arterial gradient. I will continue with the current nebulizer treatments for now. I would continue with the antibiotic coverage -- as per infectious disease. Input by Dr. Valdovinos is noted. Input by Allison Jamil (palliative care) is also noted. Overall status/ prognosis of this patient remains very poor. The patient is for probable hospice transfer in the near future. I will discuss the above with Dr. Lira. Len Lobo MD cc: [id number] TT: 11/23/2016 08:27:04 Confirmation # [id number] Dictation # [id number] [id number]
[2016-11-23] MEDS: Iron Complex Polysacch 150mg Cap PO SCH (09:41)
[2016-11-23] MEDS: Cefepime IV 2 gm in NS 100 ML IVPB SCH (09:43)
[2016-11-23] MEDS: POLYETHYLENE GLYCOL 3350 17 GM/Dose PACKET PO SCH (09:44)
[2016-11-23] MEDS: Collagenase 250 Units/gm Ointment(30 gm) TOP SCH (09:45)
--- NOTE | 2016-11-23 13:19 | CP.PCM.PN ---
Subjective - Date & Time of Evaluation Date of Evaluation: 11/23/16 Time of Evaluation: 13:19 - Subjective Subjective: PGY-1 Medicine progress note. Patient seen and examined at bedside. No acute distress. Nurse reports no events overnight. Patient states that she is not in any pain and feeling OK. Patient id more lethargic and confused. Objective - Vital Signs/Intake and Output Vital Signs (last 24 hours): Temp Pulse Resp BP Pulse Ox 98.3 F 116 H 18 139/92 H 92 L 11/23/16 08:49 11/23/16 08:49 11/23/16 08:49 11/23/16 08:49 11/23/16 08:49 Intake and Output: 11/23/16 11/23/16 06:59 18:59 Intake Total 160 Balance 160 - Medications Medications: Current Medications Acetaminophen (Tylenol 325mg Tab) 650 mg PO Q6H PRN PRN Reason: Pain, Mild (1-3) Atorvastatin Calcium (Lipitor) 20 mg PO DIN [facility] Collagenase (Santyl) 0 gm TOP DAILY [facility] Last Admin: 11/23/16 09:45 Dose: 1 applic Cyproheptadine HCl (Periactin) 4 mg PO TID [facility] Last Admin: 11/23/16 09:45 Dose: 4 mg Docusate Sodium (Colace) 100 mg PO HS [facility] Last Admin: 11/22/16 22:07 Dose: 100 mg Donepezil HCl (Aricept) 10 mg PO HS [facility] Last Admin: 11/22/16 22:09 Dose: 10 mg Escitalopram Oxalate (Lexapro) 10 mg PO DAILY [facility] Last Admin: 11/23/16 09:42 Dose: 10 mg Famotidine (Pepcid) 20 mg PO BID [facility] Last Admin: 11/23/16 09:45 Dose: 20 mg Doxycycline Hyclate 100 mg/ (Sodium Chloride) 100 mls @ 100 mls/hr IVPB Q12 [facility] PRN Reason: Protocol Last Admin: 11/23/16 09:45 Dose: 100 mls/hr Cefepime HCl (Maxipime 2gm) 100 mls @ 100 mls/hr IVPB DAILY [facility] PRN Reason: Protocol Stop: 11/28/16 10:01 Last Admin: 11/23/16 09:43 Dose: 100 mls/hr Dextrose (Dextrose 5% In Water 1000 Ml) 1,000 mls @ 50 mls/hr IV .Q20H [facility] Last Admin: 11/22/16 14:04 Dose: 50 mls/hr Levalbuterol HCl (Xopenex) 0.63 mg IH Q2 PRN PRN Reason: Shortness of Breath Levalbuterol HCl (Xopenex) 0.63 mg IH [id number] [facility] Last Admin: 11/23/16 08:13 Dose: 0.63 mg Metoprolol Tartrate (Lopressor) 50 mg PO BID [facility] Polyethylene Glycol (Miralax) 17 gm PO DAILY [facility] Last Admin: 11/23/16 09:44 Dose: 17 gm Polysaccharide Iron Complex (Ferrex-150) 150 mg PO DAILY [facility] Last Admin: 11/23/16 09:41 Dose: 150 mg - Labs Labs: 11/23/16 07:00 11/23/16 07:00 PT 20.4 Seconds (9.9-11.8) H 11/23/16 07:00 INR 1.89 (0.93-1.08) H 11/23/16 07:00 APTT 33.8 Seconds (23.7-30.8) H 11/23/16 07:00 - Constitutional Appears: No Acute Distress, Confused, Cachectic, Chronically Ill - Head Exam Head Exam: ATRAUMATIC, NORMOCEPHALIC - Eye Exam Eye Exam: Normal appearance - ENT Exam ENT Exam: Mucous Membranes Dry - Respiratory Exam Respiratory Exam: Clear to Ausculation Bilateral, Rhonchi, NORMAL BREATHING PATTERN. absent: Wheezes, Respiratory Distress - Cardiovascular Exam Cardiovascular Exam: REGULAR RHYTHM. absent: Tachycardia, Murmur - GI/Abdominal Exam GI & Abdominal Exam: Soft, Tenderness, Normal Bowel Sounds. absent: Distended, Firm, Guarding - Extremities Exam Extremities Exam: Normal Inspection. absent: Pedal Edema Additional comments: left leg dressed, clean, dry and intact - Neurological Exam Neurological Exam: Awake. absent: Oriented x3 Additional comments: lethargic - Skin Skin Exam: Dry, Intact, Pallor, Warm Assessment and Plan - Assessment and Plan (Free Text) Assessment: 81 yo female with PMH of HTN, a. fib not on anticoagulation, arthritis, hyperlipidemia, GERD and dementia presented with sepsis 2/2 PNA complicated with DUNIA, found to have multiple liver masses with elevated LFT's, anemia, hematoma on left leg. Patient is aferbile with leukocytosis that is trending up. Blood and urine cultures are negative. CT abd showed metastatic liver masses. Hematoma was drained per surgery. Patient is scheduled for possible liver biopsy. Plan: 1. possible sepsis 2/2 PNA - afebrile with leukocytosis of 23 with increased neutrophils - complicated with DUNIA - cxr on admission showed pleural effusion with possible infiltrate - cont on abx cefepime, doxycycline - lactate dehydrogenase elevated, procal elevated - blood cultures negative after 3 days - urine cultures negative - ID following 2. Hyponatremia, DUNIA - hyponatremia resolved - cr improved, BUN still remains elevated - cont on D5W with bicarb @50 - nephro following 3. Liver masses - LFTs increased today - gallbladder/hepatic US showed possible liver mets - CT abd- sub-optimal but with multiple hepatic masses suspicious for metastasis , moderated right, small left pleural effusion, and constipation without obstruction - hold Lipitor - Dr. Sanchez, hem/onc following - Dr. Marisel Pcaheco, IR consulted - possible biospy - INR 1.89 today - palliative care nurse consulted 4. anemia - currently 10, baseline 11 - peripheral smear showed slight abnormal cells - Dr. Sanchez, heme/onc following - cont monitoring 5. decrease PO intake - patient's PO intake is minimal - cont D5W with bicarb - will consider TPN if no change 6. hematoma - on medial aspect of left leg - drained per surgery - surgery following - recommend warm compresses and dressed with santyl daily 7. A. fib - family decided to hold anticoagulation due to risk of bleed - patient received vit K - INR today is 1.89 - cardiology following, Dr. Thao 8. hypotension- improved - BP was stable - hold altase, lopressor 9. constipation - no BM since admission - CT showed constipation - due to decrease PO intake dulcolax RC was given ppx - pepcid GI ppx - DVT ppx- SCDs, supratheraputic INR
[2016-11-23] MEDS ORDERED: Sodium Chloride 0.45% 1,000 ML IV SCH (14:15)
--- NOTE | 2016-11-23 14:45 | CP.PCM.PN ---
Subjective - Date & Time of Evaluation Date of Evaluation: 11/23/16 Time of Evaluation: 13:00 - Subjective Subjective: Lethargic. In no distress Objective - Vital Signs/Intake and Output Vital Signs (last 24 hours): Temp Pulse Resp BP Pulse Ox 98.2 F 101 H 17 128/78 98 11/23/16 14:18 11/23/16 14:18 11/23/16 14:18 11/23/16 14:18 11/23/16 14:18 Intake and Output: 11/23/16 11/23/16 06:59 18:59 Intake Total 160 50 Balance 160 50 - Medications Medications: Current Medications Acetaminophen (Tylenol 325mg Tab) 650 mg PO Q6H PRN PRN Reason: Pain, Mild (1-3) Atorvastatin Calcium (Lipitor) 20 mg PO DIN [facility] Collagenase (Santyl) 0 gm TOP DAILY [facility] Last Admin: 11/23/16 09:45 Dose: 1 applic Cyproheptadine HCl (Periactin) 4 mg PO TID [facility] Last Admin: 11/23/16 09:45 Dose: 4 mg Docusate Sodium (Colace) 100 mg PO HS [facility] Last Admin: 11/22/16 22:07 Dose: 100 mg Donepezil HCl (Aricept) 10 mg PO HS [facility] Last Admin: 11/22/16 22:09 Dose: 10 mg Escitalopram Oxalate (Lexapro) 10 mg PO DAILY [facility] Last Admin: 11/23/16 09:42 Dose: 10 mg Famotidine (Pepcid) 20 mg PO BID [facility] Last Admin: 11/23/16 09:45 Dose: 20 mg Doxycycline Hyclate 100 mg/ (Sodium Chloride) 100 mls @ 100 mls/hr IVPB Q12 [facility] PRN Reason: Protocol Last Admin: 11/23/16 09:45 Dose: 100 mls/hr Cefepime HCl (Maxipime 2gm) 100 mls @ 100 mls/hr IVPB DAILY [facility] PRN Reason: Protocol Stop: 11/28/16 10:01 Last Admin: 11/23/16 09:43 Dose: 100 mls/hr Dextrose (Dextrose 5% In Water 1000 Ml) 1,000 mls @ 50 mls/hr IV .Q20H [facility] Last Admin: 11/23/16 13:19 Dose: 50 mls/hr Sodium Chloride (Sodium Chloride 0.45%) 1,000 mls @ 60 mls/hr IV .[id number] [facility] Stop: 11/23/16 20:00 Levalbuterol HCl (Xopenex) 0.63 mg IH Q2 PRN PRN Reason: Shortness of Breath Levalbuterol HCl (Xopenex) 0.63 mg IH [id number] [facility] Last Admin: 11/23/16 13:49 Dose: Not Given Metoprolol Tartrate (Lopressor) 50 mg PO BID [facility] Polyethylene Glycol (Miralax) 17 gm PO DAILY [facility] Last Admin: 11/23/16 09:44 Dose: 17 gm Polysaccharide Iron Complex (Ferrex-150) 150 mg PO DAILY [facility] Last Admin: 11/23/16 09:41 Dose: 150 mg - Labs Labs: 11/23/16 07:00 11/23/16 07:00 PT 20.4 Seconds (9.9-11.8) H 11/23/16 07:00 INR 1.89 (0.93-1.08) H 11/23/16 07:00 APTT 33.8 Seconds (23.7-30.8) H 11/23/16 07:00 - Constitutional Appears: Cachectic, Chronically Ill - Eye Exam Eye Exam: Normal appearance, PERRL - ENT Exam ENT Exam: Mucous Membranes Moist - Respiratory Exam Respiratory Exam: Decreased Breath Sounds, NORMAL BREATHING PATTERN - Cardiovascular Exam Cardiovascular Exam: REGULAR RHYTHM, +S1, +S2 - GI/Abdominal Exam GI & Abdominal Exam: Soft, Diminished Bowel Sounds Additional comments: RUQ tenderness on palpation - Neurological Exam Neurological Exam: Altered - Skin Skin Exam: Dry, Pallor Assessment and Plan - Assessment and Plan (Free Text) Assessment: 81 year old female resident of [facility] living [facility] admitted with sepsis, pleural effusions,anorexia, cachexia. Ct scan shows multiple liver lesions suspicious for metastatic disease. Patient scheduled for liver biopsy today. No acute changes in status I spoke with patient's son in law via phone. Family has decided to proceed with hospice care upon discharge. Family is scheduled to meet with an [facility] retail account representative later this afternoon. Family is considering patient returning to [facility] with hospice care but need more information before making this decision. Merced ADAMS also referred this case to Fr[facility] re[facility]. She was informed that Fr. [facility]yan[facility] reynoso has no beds available at time. Plan: Continue current medical management. Will assist family with advance care planning
[2016-11-23] MEDS ORDERED: Morphine 2 mg/ml ISec IM STA (15:49)
--- NOTE | 2016-11-23 16:25 | PN ---
DATE: 11/23/2016 SUBJECTIVE: The patient was seen on a general medical floor. When I saw her, she was moaning and sp eaking gibberish. She did not appear to be in any distress and actually appeared to be fairly comfor table. She was continued to receive intravenous fluids with D5W at 50 mL hour without any dyspnea. OBJECTIVE: VITAL SIGNS: Blood pressure is 92/59 with a heart rate of 97, oral temperature 98.2, respiratory rat e 17, oxygen saturation 100% on 3 liters via nasal cannula. I's and O's were not strictly documented . HEENT: The patient was normocephalic and atraumatic without any sinus tenderness. NECK: There was no jugular venous distention. She did appear to be edentulous. Conjuctivae were ne ither pale nor icteric. CHEST: Lung amezcua were auscultation anteriorly and had decreased breath sounds at both bases, but t here was no wheezing or rhonchi. CARDIAC: Had a regular rate and rhythm without any rubs. ABDOMEN: Soft, protuberant with mild right upper quadrant tenderness. There is no rebound, guarding or rigidity. EXTREMITIES: Had 1+ sacral edema. Her left lower extremity was wrapped in gauze where the hematoma had been drained. NEUROLOGIC: She was unable to complete an exam on account of her advanced dementia, but appeared to be nonfocal otherwise. SKIN: Notable for the resolving hematoma in the left leg and dressing. LABORATORY STUDIES: White count is 25,200, H and H of 10/31.8 with a platelet count of 108,000. The re are 91% neutrophils, 4% lymphocytes, 5% monocytes. Sodium is 148, potassium 3.9, chloride is 116, bicarbonate 22, BUN/creatinine is 32/1.3 with a glucose of 109. Calcium is 9.3, but since the album in is 2.2 it corrects to approximately 10.6, which is elevated. AST/ALT 77/32, alkaline phosphatase is 2.2. There was no new microbiology data to report. The patient is status post CT-guided liver bi opsy today. IMPRESSION AND PLAN: The patient is an 81-year-old female with known history of hypertension, dyslip idemia, advanced Alzheimer's for which she had been on Coumadin during her last hospitalization, but which was held on account of supratherapeutic INR with left lower extremity hematoma, who was transfe rred back to [facility] from her senior living after outpatient laboratory studies reveale d leukocytosis as well as hypernatremia and acute kidney injury. Of note, despite holding of the Cou madin her INR continued to remain elevated and the patient is status post repeat drainage of her sergio sun as well during this hospitalization. 1. Acute kidney injury has improved with intravenous fluids that were isotonic, and now the patient is on hypotonic intravenous fluids to correct her hypernatremia. 2. For now, I would continue D5W on this patient at the rate of 50 mL per hour given the fact that s he is overall hypervolemic (some edema as well as pleural effusions) and, instead, our goal now is to correct her dehydration (as manifest by her elevated sodium). Baseline creatinine is approximately 0.8 and she still does have acute kidney injury. 3. The patient is also noted to be hypercalcemic in the setting of what appeared to be numerous live r metastases on imaging. She is status post CT-guided liver biopsy today, and we await pathology. F or the hypercalcemia, given her total protein versus abdomen ratio, SPEP, serum immunofixation and se rum free light chain assays have been requested as has PTH related peptide. 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 The calcium is n ot elevated enough to begin any specific therapy targeted towards it such as a bisphosphonate, in my opinion, unless we find that she also as bone metastases. 4. Palliative care followup is appreciated. Upon discharge, the family will proceed with hospice ca re, which I think is quite reasonable given what appears to be underlying metastatic cancer in a rj ent with advanced dementia to begin with. Via the chart, review of systems, past medical history, social history and family history were all re viewed and there are no new changes. Deng Sapp MD cc: [phone] TT: 11/23/2016 16:24:05 Confirmation # [id number] Dictation # [id number]
--- NOTE | 2016-11-23 16:57 | CP.PCM.PN ---
Subjective - Date & Time of Evaluation Date of Evaluation: 11/23/16 Time of Evaluation: 10:00 - Subjective Subjective: Comfortable in bed, not in distress, no fevers. Objective - Vital Signs/Intake and Output Vital Signs (last 24 hours): Temp Pulse Resp BP Pulse Ox 98.3 F 116 H 18 139/92 H 92 L 11/23/16 08:49 11/23/16 08:49 11/23/16 08:49 11/23/16 08:49 11/23/16 08:49 Intake and Output: 11/23/16 11/23/16 06:59 18:59 Intake Total 160 Balance 160 - Medications Medications: Current Medications Acetaminophen (Tylenol 325mg Tab) 650 mg PO Q6H PRN PRN Reason: Pain, Mild (1-3) Atorvastatin Calcium (Lipitor) 20 mg PO DIN [facility] Collagenase (Santyl) 0 gm TOP DAILY [facility] Last Admin: 11/22/16 11:18 Dose: 1 applic Cyproheptadine HCl (Periactin) 4 mg PO TID [facility] Last Admin: 11/22/16 17:03 Dose: Not Given Docusate Sodium (Colace) 100 mg PO HS [facility] Last Admin: 11/22/16 22:07 Dose: 100 mg Donepezil HCl (Aricept) 10 mg PO HS [facility] Last Admin: 11/22/16 22:09 Dose: 10 mg Escitalopram Oxalate (Lexapro) 10 mg PO DAILY [facility] Last Admin: 11/22/16 11:03 Dose: Not Given Famotidine (Pepcid) 20 mg PO BID [facility] Last Admin: 11/22/16 17:03 Dose: Not Given Doxycycline Hyclate 100 mg/ (Sodium Chloride) 100 mls @ 100 mls/hr IVPB Q12 [facility] PRN Reason: Protocol Last Admin: 11/22/16 22:09 Dose: 100 mls/hr Cefepime HCl (Maxipime 2gm) 100 mls @ 100 mls/hr IVPB DAILY [facility] PRN Reason: Protocol Stop: 11/28/16 10:01 Last Admin: 11/22/16 11:20 Dose: 100 mls/hr Dextrose (Dextrose 5% In Water 1000 Ml) 1,000 mls @ 50 mls/hr IV .Q20H [facility] Last Admin: 11/22/16 14:04 Dose: 50 mls/hr Levalbuterol HCl (Xopenex) 0.63 mg IH Q2 PRN PRN Reason: Shortness of Breath Levalbuterol HCl (Xopenex) 0.63 mg IH [id number] [facility] Last Admin: 11/23/16 08:13 Dose: 0.63 mg Metoprolol Tartrate (Lopressor) 50 mg PO BID [facility] Polyethylene Glycol (Miralax) 17 gm PO DAILY [facility] Last Admin: 11/22/16 11:21 Dose: Not Given Polysaccharide Iron Complex (Ferrex-150) 150 mg PO DAILY [facility] Last Admin: 11/22/16 11:03 Dose: Not Given - Labs Labs: 11/23/16 07:00 11/23/16 07:00 PT 20.4 Seconds (9.9-11.8) H 11/23/16 07:00 INR 1.89 (0.93-1.08) H 11/23/16 07:00 APTT 33.8 Seconds (23.7-30.8) H 11/23/16 07:00 - Constitutional Appears: Non-toxic, No Acute Distress - Head Exam Head Exam: NORMAL INSPECTION - Respiratory Exam Respiratory Exam: Decreased Breath Sounds - Cardiovascular Exam Cardiovascular Exam: +S1, +S2 - GI/Abdominal Exam GI & Abdominal Exam: Soft. absent: Tenderness Assessment and Plan - Assessment and Plan (Free Text) Plan: Assessment Consider severe sepsis with acute renal failure and marked leukocytosis probably secondary to right sided healthcare-associated pneumonia with possible gram positive cocci and/or gram negative bacilli with pleural effusion; patient also has a left calf hematoma R/O hepatic metastatic masses HTN dyslipidemia GERD dementia atrial fibrillation Plan continue Doxycycline and Cefepime day 3 (renally-adjusted) and gave one dose of IV Vancomycin; cultures are negative; PCT is elevated reviewed CT Abdomen and pelvis which shows probable hepatic metastases Will monitor clinically and trend WBC count
--- NOTE | 2016-11-23 17:12 | CT ---
PROCEDURE: CT guided liver biopsy. HISTORY: Multiple liver lesions consistent with metastatic disease. Unknown primary. Needs liver biopsy. PHYSICIAN(S): Bubba Pacheco MD. TECHNIQUE: The relative risks and indications of the procedure were explained to the patient's daughter and consent obtained. The patient was placed supine on the CT scanner and preliminary images through the liver obtained. Conscious sedation and monitoring were provided throughout the procedure by a nurse. There are numerous colestipol attenuation lesions in both lobes of the liver.. A right subcostal approach was selected and the area prepped and draped in the usual sterile fashion. 1% Xylocaine was used to anesthetize the skin and soft tissues. A 17-gauge guiding needle was advanced into the anterior segment of the right lobe of the liver. Its position was confirmed with CT. Using coaxial technique, multiple core biopsies were obtained. The postprocedure images show no evidence of significant hemorrhage. IMPRESSION: 1. CT-guided liver biopsy as described above.
[2016-11-23 17:41] VITALS: RESP 18
--- NOTE | 2016-11-23 18:32 | PN ---
DATE: 11/23/2016 SUBJECTIVE: The patient is lying in bed, comfortable. She is unable to answer any questions and devin ble to verbalize her concerns. OBJECTIVE: VITAL SIGNS: Reveal a blood pressure of 92/59, heart rate of 97 and an oral temperature of 98.2, res piratory rate of 17. HEAD: Normocephalic, atraumatic. There is some pallor, no icterus is noted. NECK: Supple with no adenopathy, no JVD, no thyromegaly. LUNGS: Decreased breath sounds at both bases, but there is no wheezing, rhonchi, or rales. CARDIOVASCULAR: S1, S2 is heard. ABDOMEN: Positive bowel sounds, soft, nontender, nondistended, no organomegaly is palpated. EXTREMITIES: There is no edema. LABORATORY DATA: Today reveal a white count of 25.2, hemoglobin 10.0, hematocrit 31.8, MCV of 87.1, and a platelet count of 108. Her chemistries are within normal limits. BUN and creatinine are 32 an d 1.3. ASSESSMENT AND PLAN: The patient has multiple liver lesions, likely consistent with metastatic disea se of unknown primary. At this point awaiting CT-guided liver biopsy, which was done today, await [facility] pathology. The patient's chart reveals that the patient's family has decided that she would not be a candidate for any palliative chemotherapy considering her elderly age and demented status and po or performance status, which is a perfectly reasonable conclusion to reach at this point. Pending bi opsy at this point, would recommend hospice care on this patient with very poor performance status an d likely no benefit from chemotherapy. Thank you for the consult. We will follow. Fela Sanchez MD cc: [id number] TT: 11/23/2016 18:32:06 Confirmation # [id number] Dictation # [id number] anton
[2016-11-24] MEDS: Levalbuterol 0.63 MG/3 ML Inhal Soln UD IH SCH ×3 (01:20→13:29)
[2016-11-24] MEDS ORDERED: Morphine 2 mg/ml ISec IVP PRN (07:13)
[2016-11-24 08:14] VITALS: BP 131/85; PULSE 109; TEMP 97.9; O2SAT 100
--- NOTE | 2016-11-24 08:31 | PN ---
DATE: 11/24/2016 SUBJECTIVE: The patient appears comfortable this morning. She is not short of breath at rest. PHYSICAL EXAMINATION: VITAL SIGNS: Temperature is 97.3, pulse this morning is about 90, respiratory rate 18, blood pressure 120/90. Oxygen saturation on nasal cannula ranges between 92-100%. HEENT: Normocephalic, atraumatic. No JVD. CARDIOVASCULAR: Systolic ejection murmur at the lower left sternal border. No S3 gallop. LUNGS: Crackles noted at the right base. Very minimal/less rhonchi. No wheezing. EXTREMITIES: No clubbing, cyanosis, or edema. Calves are nontender to palpation. GASTROINTESTINAL: Abdomen is soft, nontender, nondistended. Bowel sounds are positive. SKIN: No acute rash. NEUROLOGIC: Limited at the present time. IMPRESSION: 1. Rule out right lower lobe pneumonia. 2. Bilateral pleural effusions. 3. Mild anemia. 4. Renal insufficiency. 5. Multiple hepatic masses. PLAN: The patient appears very comfortable this morning. She is not short of breath at rest. On physical exam, her bronchospasm is certainly less. In addition, there is no significant alveolar arterial gradient. I will continue with the current nebulizer treatments for now. The patient is status post CAT scan-guided liver biopsy by Dr. Bubba Pacheco. Dr. Pacheco's input is noted. Pathology is pending. I have also reviewed the latest input by Allison Jamil (palliative care). The patient is for hospice transfer in the near future. I will discuss the above with the attending physician. Len Lobo MD cc: [id number] TT: 11/24/2016 08:31:41 Confirmation # [id number] Dictation # [id number] angel SMITH
--- NOTE | 2016-11-24 08:32 | CP.PCM.PN ---
Subjective - Date & Time of Evaluation Date of Evaluation: 11/24/16 Time of Evaluation: 06:30 - Subjective Subjective: Pt seen and evaluated at bedside. No acute distress. One word responses to questions. Afebrile. From LLE, clots evacuated from hematoma. Objective - Vital Signs/Intake and Output Vital Signs (last 24 hours): Temp Pulse Resp BP Pulse Ox 97.9 F 109 H 18 131/85 100 11/24/16 05:37 11/24/16 05:37 11/24/16 05:37 11/24/16 05:37 11/24/16 05:37 Intake and Output: 11/24/16 11/24/16 06:59 18:59 Intake Total 0 Balance 0 - Medications Medications: Current Medications Acetaminophen (Tylenol 325mg Tab) 650 mg PO Q6H PRN PRN Reason: Pain, Mild (1-3) Atorvastatin Calcium (Lipitor) 20 mg PO DIN [facility] Collagenase (Santyl) 0 gm TOP DAILY [facility] Last Admin: 11/23/16 09:45 Dose: 1 applic Cyproheptadine HCl (Periactin) 4 mg PO TID [facility] Last Admin: 11/23/16 17:35 Dose: Not Given Docusate Sodium (Colace) 100 mg PO HS [facility] Last Admin: 11/23/16 23:57 Dose: Not Given Donepezil HCl (Aricept) 10 mg PO HS [facility] Last Admin: 11/23/16 23:58 Dose: Not Given Escitalopram Oxalate (Lexapro) 10 mg PO DAILY [facility] Last Admin: 11/23/16 09:42 Dose: 10 mg Famotidine (Pepcid) 20 mg PO BID [facility] Last Admin: 11/23/16 17:34 Dose: Not Given Doxycycline Hyclate 100 mg/ (Sodium Chloride) 100 mls @ 100 mls/hr IVPB Q12 [facility] PRN Reason: Protocol Last Admin: 11/23/16 23:56 Dose: 100 mls/hr Cefepime HCl (Maxipime 2gm) 100 mls @ 100 mls/hr IVPB DAILY [facility] PRN Reason: Protocol Stop: 11/28/16 10:01 Last Admin: 11/23/16 09:43 Dose: 100 mls/hr Dextrose (Dextrose 5% In Water 1000 Ml) 1,000 mls @ 50 mls/hr IV .Q20H [facility] Last Admin: 11/23/16 13:19 Dose: 50 mls/hr Levalbuterol HCl (Xopenex) 0.63 mg IH Q2 PRN PRN Reason: Shortness of Breath Levalbuterol HCl (Xopenex) 0.63 mg IH [id number] [facility] Last Admin: 11/24/16 07:58 Dose: 0.63 mg Metoprolol Tartrate (Lopressor) 50 mg PO BID [facility] Morphine Sulfate (Morphine) 2 mg IVP Q4H PRN PRN Reason: Pain, severe (8-10) Polyethylene Glycol (Miralax) 17 gm PO DAILY [facility] Last Admin: 11/23/16 09:44 Dose: 17 gm Polysaccharide Iron Complex (Ferrex-150) 150 mg PO DAILY [facility] Last Admin: 11/23/16 09:41 Dose: 150 mg - Labs Labs: 11/23/16 07:00 11/23/16 07:00 PT 20.4 Seconds (9.9-11.8) H 11/23/16 07:00 INR 1.89 (0.93-1.08) H 11/23/16 07:00 APTT 33.8 Seconds (23.7-30.8) H 11/23/16 07:00 - Additional Findings Additional findings: - Constitutional Appears: Non-toxic, No Acute Distress, Older Than Stated Age, Confused, Chronically Ill - Head Exam Head Exam: NORMAL INSPECTION - Eye Exam Eye Exam: Normal appearance - ENT Exam ENT Exam: Mucous Membranes Moist - Respiratory Exam Respiratory Exam: NORMAL BREATHING PATTERN. absent: Accessory Muscle Use, Respiratory Distress - Cardiovascular Exam Cardiovascular Exam: Irregular Rhythm - GI/Abdominal Exam GI & Abdominal Exam: Soft. absent: Distended - Extremities Exam Additional comments: 5cm area of reduced fluid collection. Clots evacuated and dressing changed. - Neurological Exam Neurological exam: Alert, Altered (dementia) - Skin Skin Exam: Dry, Intact, Warm Assessment and Plan - Assessment and Plan (Free Text) Plan: 81 yo F w/PMHx w/LLE hematoma: - Clots evacuated today from LLE and dressing changed today -wound cx taken - warm compresses - dressed w/Santyl daily - cont medical management -to be transferred to hospice this PM further recs as per Dr. Omkar Cabrera PGY1
[2016-11-24 09:06] LABS: HEMATOCRIT 31.1 % (36.0-48.0); MEAN CELL VOLUME 89.6 fL (80.0-105.0); MEAN CORPUSCULAR HEMOGLOBIN 27.1 pg (25.0-35.0); MEAN CORPUSCULAR HGB CONC 30.2 g/dl (31.0-37.0); PLATELET COUNT 105 10^3/uL (120.0-450.0); RED CELL DISTRIBUTION WIDTH 22.1 % (11.5-14.5)
[2016-11-24 09:11] LABS: BILIRUBIN,TOTAL 2.2 mg/dL (0.2-1.3); CALCIUM 9.2 mg/dL (8.4-10.5); POTASSIUM 4.2 mmol/L (3.6-5.0); TOTAL PROTEIN 5.9 g/dL (5.8-8.3)
[2016-11-24 09:16] LABS: WHITE BLOOD COUNT 27.1 10^3/ul (4.5-11.0)
[2016-11-24 09:18] LABS: ALB/GLOB RATIO 0.6 (1.1-1.8)
[2016-11-24] MEDS: Iron Complex Polysacch 150mg Cap PO SCH (09:29)
[2016-11-24] MEDS: Cefepime IV 2 gm in NS 100 ML IVPB SCH (09:30)
[2016-11-24] MEDS: POLYETHYLENE GLYCOL 3350 17 GM/Dose PACKET PO SCH (09:30)
[2016-11-24] MEDS: Collagenase 250 Units/gm Ointment(30 gm) TOP SCH (09:31)
[2016-11-24 09:33] LABS: ADD MANUAL DIFF? NO; BASO # 0.04 K/mm3 (0.0-2.0); BASO % 0.1 % (0.0-3.0); EOS # 0.2 (0.0-0.7); EOS % 0.7 % (1.5-5.0); GRAN # 21.91 (1.4-6.5); GRAN % 88.5 % (50.0-68.0); LYMPH % 3.6 % (22.0-35.0); MONO % 7.1 % (1.0-6.0)
[2016-11-24 09:38] LABS: TOTAL PROTEIN, SERUM 6.1 g/dL (6.1-8.1)
--- NOTE | 2016-11-24 11:05 | CP.PCM.PN ---
Subjective - Date & Time of Evaluation Date of Evaluation: 11/24/16 Time of Evaluation: 09:00 - Subjective Subjective: Bed bound. Appears comfortable. No acute overnight incidents Objective - Vital Signs/Intake and Output Vital Signs (last 24 hours): Temp Pulse Resp BP Pulse Ox 97.9 F 109 H 18 131/85 100 11/24/16 05:37 11/24/16 05:37 11/24/16 05:37 11/24/16 05:37 11/24/16 05:37 Intake and Output: 11/24/16 11/24/16 06:59 18:59 Intake Total 0 Balance 0 - Medications Medications: Current Medications Acetaminophen (Tylenol 325mg Tab) 650 mg PO Q6H PRN PRN Reason: Pain, Mild (1-3) Atorvastatin Calcium (Lipitor) 20 mg PO DIN [facility] Collagenase (Santyl) 0 gm TOP DAILY [facility] Last Admin: 11/24/16 09:31 Dose: 1 applic Cyproheptadine HCl (Periactin) 4 mg PO TID [facility] Last Admin: 11/24/16 09:30 Dose: Not Given Docusate Sodium (Colace) 100 mg PO HS [facility] Last Admin: 11/23/16 23:57 Dose: Not Given Donepezil HCl (Aricept) 10 mg PO HS [facility] Last Admin: 11/23/16 23:58 Dose: Not Given Escitalopram Oxalate (Lexapro) 10 mg PO DAILY [facility] Last Admin: 11/24/16 09:30 Dose: Not Given Famotidine (Pepcid) 20 mg PO BID [facility] Last Admin: 11/24/16 09:30 Dose: Not Given Doxycycline Hyclate 100 mg/ (Sodium Chloride) 100 mls @ 100 mls/hr IVPB Q12 [facility] PRN Reason: Protocol Last Admin: 11/24/16 09:31 Dose: 100 mls/hr Cefepime HCl (Maxipime 2gm) 100 mls @ 100 mls/hr IVPB DAILY [facility] PRN Reason: Protocol Stop: 11/28/16 10:01 Last Admin: 11/24/16 09:30 Dose: 100 mls/hr Dextrose (Dextrose 5% In Water 1000 Ml) 1,000 mls @ 50 mls/hr IV .Q20H [facility] Last Admin: 11/23/16 13:19 Dose: 50 mls/hr Levalbuterol HCl (Xopenex) 0.63 mg IH Q2 PRN PRN Reason: Shortness of Breath Levalbuterol HCl (Xopenex) 0.63 mg IH [id number] [facility] Last Admin: 11/24/16 07:58 Dose: 0.63 mg Metoprolol Tartrate (Lopressor) 50 mg PO BID [facility] Morphine Sulfate (Morphine) 2 mg IVP Q4H PRN PRN Reason: Pain, severe (8-10) Polyethylene Glycol (Miralax) 17 gm PO DAILY [facility] Last Admin: 11/24/16 09:30 Dose: Not Given Polysaccharide Iron Complex (Ferrex-150) 150 mg PO DAILY [facility] Last Admin: 11/24/16 09:29 Dose: Not Given - Labs Labs: 11/24/16 08:55 11/24/16 08:55 PT 20.4 Seconds (9.9-11.8) H 11/23/16 07:00 INR 1.89 (0.93-1.08) H 11/23/16 07:00 APTT 33.8 Seconds (23.7-30.8) H 11/23/16 07:00 - Constitutional Appears: Cachectic, Chronically Ill - Head Exam Head Exam: NORMAL INSPECTION - Eye Exam Eye Exam: Normal appearance, PERRL - ENT Exam ENT Exam: Mucous Membranes Moist - Respiratory Exam Respiratory Exam: Decreased Breath Sounds, NORMAL BREATHING PATTERN - Cardiovascular Exam Cardiovascular Exam: REGULAR RHYTHM, +S1, +S2 - GI/Abdominal Exam GI & Abdominal Exam: Soft, Diminished Bowel Sounds - Extremities Exam Extremities Exam: Normal Inspection - Neurological Exam Neurological Exam: Altered - Skin Skin Exam: Dry, Pallor Assessment and Plan - Assessment and Plan (Free Text) Assessment: 81 year old female admitted with weakness, anorexia, cachexia. Found to have new multiple liver lesions on CT studies. Liver biopsy done yesterday. Family has indicated that they romero not want an aggressive treatment interventions Family met with [facility] liaison and [facility] lia[facility] last evening. Family decided that patient will return to [facility] with hospice services. Patient is scheduled for transfer today at 1pm Plan: No new recommendations. Thank you for allowing me to participate in this patients care.
--- NOTE | 2016-11-24 14:10 | CP.PCM.PN ---
Subjective - Date & Time of Evaluation Date of Evaluation: 11/24/16 Time of Evaluation: 10:05 - Subjective Subjective: Comfortable, not in distress. Objective - Vital Signs/Intake and Output Vital Signs (last 24 hours): Temp Pulse Resp BP Pulse Ox 97.9 F 109 H 18 131/85 100 11/24/16 05:37 11/24/16 05:37 11/24/16 05:37 11/24/16 05:37 11/24/16 05:37 Intake and Output: 11/24/16 11/24/16 06:59 18:59 Intake Total 0 Balance 0 - Medications Medications: Current Medications Acetaminophen (Tylenol 325mg Tab) 650 mg PO Q6H PRN PRN Reason: Pain, Mild (1-3) Atorvastatin Calcium (Lipitor) 20 mg PO DIN [facility] Collagenase (Santyl) 0 gm TOP DAILY [facility] Last Admin: 11/24/16 09:31 Dose: 1 applic Cyproheptadine HCl (Periactin) 4 mg PO TID [facility] Last Admin: 11/24/16 09:30 Dose: Not Given Docusate Sodium (Colace) 100 mg PO HS [facility] Last Admin: 11/23/16 23:57 Dose: Not Given Donepezil HCl (Aricept) 10 mg PO HS [facility] Last Admin: 11/23/16 23:58 Dose: Not Given Escitalopram Oxalate (Lexapro) 10 mg PO DAILY [facility] Last Admin: 11/24/16 09:30 Dose: Not Given Famotidine (Pepcid) 20 mg PO BID [facility] Last Admin: 11/24/16 09:30 Dose: Not Given Doxycycline Hyclate 100 mg/ (Sodium Chloride) 100 mls @ 100 mls/hr IVPB Q12 [facility] PRN Reason: Protocol Last Admin: 11/24/16 09:31 Dose: 100 mls/hr Cefepime HCl (Maxipime 2gm) 100 mls @ 100 mls/hr IVPB DAILY [facility] PRN Reason: Protocol Stop: 11/28/16 10:01 Last Admin: 11/24/16 09:30 Dose: 100 mls/hr Dextrose (Dextrose 5% In Water 1000 Ml) 1,000 mls @ 50 mls/hr IV .Q20H [facility] Last Admin: 11/23/16 13:19 Dose: 50 mls/hr Levalbuterol HCl (Xopenex) 0.63 mg IH Q2 PRN PRN Reason: Shortness of Breath Levalbuterol HCl (Xopenex) 0.63 mg IH [id number] [facility] Last Admin: 11/24/16 13:29 Dose: 0.63 mg Metoprolol Tartrate (Lopressor) 50 mg PO BID [facility] Morphine Sulfate (Morphine) 2 mg IVP Q4H PRN PRN Reason: Pain, severe (8-10) Last Admin: 11/24/16 12:10 Dose: 2 mg Polyethylene Glycol (Miralax) 17 gm PO DAILY [facility] Last Admin: 11/24/16 09:30 Dose: Not Given Polysaccharide Iron Complex (Ferrex-150) 150 mg PO DAILY [facility] Last Admin: 11/24/16 09:29 Dose: Not Given - Labs Labs: 11/24/16 08:55 11/24/16 08:55 PT 20.4 Seconds (9.9-11.8) H 11/23/16 07:00 INR 1.89 (0.93-1.08) H 11/23/16 07:00 APTT 33.8 Seconds (23.7-30.8) H 11/23/16 07:00 - Constitutional Appears: Non-toxic, No Acute Distress - Head Exam Head Exam: NORMAL INSPECTION - ENT Exam ENT Exam: Mucous Membranes Moist - Neck Exam Neck Exam: absent: Lymphadenopathy, Meningismus - Respiratory Exam Respiratory Exam: Decreased Breath Sounds - Cardiovascular Exam Cardiovascular Exam: +S1, +S2 - GI/Abdominal Exam GI & Abdominal Exam: Soft. absent: Tenderness Assessment and Plan - Assessment and Plan (Free Text) Plan: Assessment Consider severe sepsis with acute renal failure and marked leukocytosis probably secondary to right sided healthcare-associated pneumonia with possible gram positive cocci and/or gram negative bacilli with pleural effusion; patient also has a left calf hematoma, slowly improving clinically; persistent leukocytosis may be related to the metastatic masses in the liver Probable hepatic metastatic masses HTN dyslipidemia GERD dementia atrial fibrillation Plan on Doxycycline and Cefepime day 4 (renally-adjusted) and gave one dose of IV Vancomycin; cultures are negative; PCT is elevated reviewed CT Abdomen and pelvis which shows probable hepatic metastases Will monitor clinically and trend WBC count OVerall prognosis is poor - plan for hospice services for the patient
--- NOTE | 2016-11-24 14:45 | CP.PCM.DIS ---
Provider - Provider Date of Admission: 11/19/16 23:44 Attending physician: Ranjit Lira MD Primary care physician: Phan Farrell MD Time Spent in preparation of Discharge (in minutes): 40 Hospital Course - Lab Results Lab Results: Micro Results 11/20/16 05:38 Axilla MRSA Culture (Admit) - Final MRSA NOT DETECTED 11/20/16 02:50 Naris MRSA Culture (Admit) - Final MRSA NOT DETECTED Most Recent Lab Values WBC 27.1 10^3/ul (4.5-11.0) H* 11/24/16 08:55 RBC 3.47 10^6/uL (3.5-6.1) L 11/24/16 08:55 Hgb 9.4 gm/dL (12.0-16.0) L 11/24/16 08:55 Hct 31.1 % (36.0-48.0) L 11/24/16 08:55 MCV 89.6 fL (80.0-105.0) 11/24/16 08:55 MCH 27.1 pg (25.0-35.0) 11/24/16 08:55 MCHC 30.2 g/dl (31.0-37.0) L 11/24/16 08:55 RDW 22.1 % (11.5-14.5) H 11/24/16 08:55 Plt Count 105 10^3/uL (120.0-450.0) L 11/24/16 08:55 MPV 11.0 fl (7.0-11.0) 11/24/16 08:55 Gran % 88.5 % (50.0-68.0) H 11/24/16 08:55 Lymph % (Auto) 3.6 % (22.0-35.0) L 11/24/16 08:55 Bee % (Auto) 7.1 % (1.0-6.0) H 11/24/16 08:55 Eos % (Auto) 0.7 % (1.5-5.0) L 11/24/16 08:55 Baso % (Auto) 0.1 % (0.0-3.0) 11/24/16 08:55 Gran # 21.91 (1.4-6.5) H 11/24/16 08:55 Lymph # 1.0 (1.2-3.4) L 11/24/16 08:55 Bee # 2.0 (0.1-0.6) H 11/24/16 08:55 Eos # 0.2 (0.0-0.7) 11/24/16 08:55 Baso # 0.04 K/mm3 (0.0-2.0) 11/24/16 08:55 Neutrophils % (Manual) 87 % (50.0-70.0) H 11/21/16 06:30 Band Neutrophils % 3 % (0-2) H 11/21/16 06:30 Lymphocytes % (Manual) 5 % (22.0-35.0) L 11/21/16 06:30 Atypical Lymphs % 1 % (0.0-0.0) H 11/21/16 06:30 Monocytes % (Manual) 4 % (1.0-6.0) 11/21/16 06:30 Myelocytes % 1 % 11/20/16 10:20 Toxic Granulation Slight 11/20/16 10:20 Platelet Evaluation Normal (NORMAL) 11/21/16 06:30 Polychromasia Slight 11/21/16 06:30 Hypochromasia 1+ 11/21/16 06:30 Poikilocytosis (manual 1+ 11/21/16 06:30 Anisocytosis (manual) 2+ 11/21/16 06:30 Tear Drop Cells Slight 11/21/16 06:30 Ovalocytes 1+ 11/21/16 06:30 Helmet Cells Slight 11/20/16 10:20 González Cells 1+ 11/21/16 06:30 Acanthocytes (Spur) Slight 11/21/16 06:30 Rouleaux Slight 11/21/16 06:30 PT 20.4 Seconds (9.9-11.8) H 11/23/16 07:00 INR 1.89 (0.93-1.08) H 11/23/16 07:00 APTT 33.8 Seconds (23.7-30.8) H 11/23/16 07:00 pCO2 26 mm/Hg (35-45) L 11/19/16 23:05 pO2 84 mm/Hg (30-55) H 11/20/16 01:19 HCO3 18.1 mmol/L (21-28) L 11/19/16 23:05 ABG pH 7.45 (7.35-7.45) 11/19/16 23:05 ABG Total CO2 18.9 mmol.L (22-28) L 11/19/16 23:05 ABG O2 Saturation 97.9 % (95-98) 11/19/16 23:05 ABG O2 Content 13.2 ML/dl (15-23) L 11/19/16 23:05 ABG Base Excess -4.8 mmol/L (-2.0-3.0) L 11/19/16 23:05 ABG Hemoglobin 9.8 g/dL (11.7-17.4) L 11/19/16 23:05 ABG Carboxyhemoglobin 2.4 % (0.5-1.5) H 11/19/16 23:05 POC ABG HHb (Measured) 2.0 % (0-5) 11/19/16 23:05 ABG Methemoglobin 0.8 % (0.0-3.0) 11/19/16 23:05 ABG O2 Capacity 13.5 mL/dl (16-24) L 11/19/16 23:05 VBG pH 7.27 (7.32-7.43) L 11/20/16 01:19 VBG pCO2 45.0 (40-60) 11/20/16 01:19 VBG HCO3 20.7 mmol/l (21-28) L 11/20/16 01:19 VBG Total CO2 22.1 mmol.L (22-28) 11/20/16 01:19 VBG O2 Sat (Calc) 96.9 % (40-65) H 11/20/16 01:19 VBG Base Excess -6.2 mmol/L (0.0-2.0) L 11/20/16 01:19 VBG Potassium 4.9 mmol/L (3.6-5.2) 11/20/16 01:19 Hgb O2 Saturation 94.7 % (95.0-98.0) L 11/19/16 23:05 Sodium 147.0 mmol/L (132-148) 11/20/16 01:19 Chloride 120.0 mmol/L (98-107) H 11/20/16 01:19 Glucose 121 mg/dl (65-105) H 11/20/16 01:19 Lactate 2.8 mmol/L (0.7-2.1) H 11/20/16 01:19 FiO2 21.0 % 11/20/16 01:19 Sodium 150 mmol/L (132-148) H 11/24/16 08:55 Potassium 4.2 mmol/L (3.6-5.0) 11/24/16 08:55 Chloride 120 mmol/L (95-110) H 11/24/16 08:55 Carbon Dioxide 17 mmol/L (21-33) L 11/24/16 08:55 Anion Gap 17 (10-20) 11/24/16 08:55 BUN 36 mg/dL (7-21) H 11/24/16 08:55 Creatinine 1.4 mg/dL (0.5-1.4) 11/24/16 08:55 Est GFR ( Amer) 44 11/24/16 08:55 Est GFR (Non-Af Amer) 36 11/24/16 08:55 Random Glucose 68 mg/dL (70-110) L 11/24/16 08:55 Serum Osmolality 320 mosm/kg (271-296) H 11/21/16 09:15 Calcium 9.2 mg/dL (8.4-10.5) 11/24/16 08:55 Phosphorus 3.0 mg/dL (2.5-4.5) 11/19/16 21:52 Magnesium 2.3 mg/dL (1.7-2.2) H 11/20/16 10:20 Total Bilirubin 2.2 mg/dL (0.2-1.3) H 11/24/16 08:55 AST 68 U/L (15-39) H 11/24/16 08:55 ALT 21 U/L (7-56) 11/24/16 08:55 Alkaline Phosphatase 188 U/L (38-133) H 11/24/16 08:55 Lactate Dehydrogenase 1273 U/L (333-699) H 11/19/16 21:52 Total Creatine Kinase 22 U/L (35-230) L 11/19/16 21:52 Troponin I < 0.01 ng/mL D 11/19/16 21:52 NT-Pro-B Natriuret Pep 4860 pg/mL (0-450) H 11/20/16 10:20 Total Protein 5.9 g/dL (5.8-8.3) 11/24/16 08:55 Total Protein (PEP) 6.1 g/dL (6.1-8.1) 11/23/16 07:00 Albumin 2.1 g/dL (3.0-4.8) L 11/24/16 08:55 Globulin 3.8 gm/dL 11/24/16 08:55 Albumin/Globulin Ratio 0.6 (1.1-1.8) L 11/24/16 08:55 Procalcitonin 2.34 NG/ML (0.19-0.49) H 11/20/16 07:15 Venous Blood Potassium 4.9 mmol/L (3.6-5.2) 11/20/16 01:19 Urine Color Yellow (YELLOW) 11/19/16 23:10 Urine Appearance Clear (CLEAR) 11/19/16 23:10 Urine pH 6.0 (4.7-8.0) 11/19/16 23:10 Ur Specific Blunt 1.020 (1.005-1.035) 11/19/16 23:10 Urine Protein Trace mg/dL (<30 mg/dL) H 11/19/16 23:10 Urine Glucose (UA) Negative mg/dL (NEGATIVE) 11/19/16 23:10 Urine Ketones Negative mg/dL (NEGATIVE) 11/19/16 23:10 Urine Blood Negative (NEGATIVE) 11/19/16 23:10 Urine Nitrate Negative (NEGATIVE) 11/19/16 23:10 Urine Bilirubin Small (NEGATIVE) H 11/19/16 23:10 Urine Urobilinogen 1.0 E.U./dL (<1 E.U./dL) H 11/19/16 23:10 Ur Leukocyte Esterase Negative Elizabeth/uL (NEGATIVE) 11/19/16 23:10 Urine RBC 0 - 2 /hpf (0-2) 11/19/16 23:10 Urine WBC 0 - 2 /hpf (0-6) 11/19/16 23:10 Ur Epithelial Cells 0 - 2 /hpf (0-5) 11/19/16 23:10 Hyaline Casts 0 - 2 /hpf 11/19/16 23:10 - Hospital Course Hospital Course: 81 yo female with PMH of HTN, a. fib not on anticoagulation, arthritis, hyperlipidemia, GERD and dementia presented with sepsis 2/2 PNA complicated with DUNIA, found to have multiple liver masses with elevated LFT's, anemia, hematoma on left leg. Patient was sent from halfway with elevated WBC and lethargy. CXR pleural effusion with possible infiltrate. LFTs were elevated. GB US showed no stones, or inflammation, but showed multiple liver masses. CT abd was done it showed multiple hepatic masses suspicious for metastasis, moderated right, small left pleural effusion, and constipation without obstruction. She was afebrile however her leukocytosis continued to rise. ID was consulted and she was started on abx cefepime and doxycycline. Blood cultures, urine cultures and wound cultures were negative. Patient had hypernatremia and DUNIA. Nephro was consulted She was started on IVF. Her kidney functions improved. For the liver masses hem/onc and IR were consulted. CT guided biospy was done once INR returned to baseline. The hematoma on medial aspect of left leg was drained per surgery. Palliative care nurse consulted. Family decided to place patient on hosice. Patient has increasing lethargic. New pain medications, scopolamine transdermal patch and fentanyl patch were given. Discharge diagnoses are liver masses, sepsis complicated with DUNIA, hematoma s/p drainage. Family is aware of hospital course and diagnoses. Discharge plans were discussed with family, they have decided to place patient in hospice care. Discharge Exam - Head Exam Head Exam: NORMAL INSPECTION - Eye Exam Eye Exam: Normal appearance - ENT Exam ENT Exam: Mucous Membranes Moist - Respiratory Exam Respiratory Exam: Clear to PA & Lateral, NORMAL BREATHING PATTERN. absent: Rales, Rhonchi, Wheezes, Respiratory Distress - Cardiovascular Exam Cardiovascular Exam: REGULAR RHYTHM. absent: Tachycardia, Diastolic murmur, Systolic Murmur - GI/Abdominal Exam GI & Abdominal Exam: Normal Bowel Sounds, Soft, Unremarkable. absent: Distended , Firm, Guarding, Tenderness - Extremities Exam Extremities exam: normal inspection Additional comments: drained hematoma on left leg, dressing clean, dry and intact - Neurological Exam Additional comments: patient is extremely lethargic, responding to verbal stimuli - Skin Skin Exam: Dry, Intact, Pallor, Warm Discharge Plan - Discharge Medications Prescriptions: Fentanyl [Duragesic Patch] 1 each TD Q72 #10 patch.td72 Scopolamine [Transderm-Scop] 1 each TD Q72 #10 patch.td.3 - Follow Up Plan Condition: STABLE Disposition: TRANSF TO SNF Instructions: Sepsis (GEN) Additional Instructions: Patient is being discharged on hospice care. new medications:scopolamine transdermal patch and fentanyl patch discontinue all other medications discharge diagnoses: - liver masses - sepsis - hematoma s/p drainage Referrals: Phan Farrell MD [Primary Care Provider] -
[2016-11-24 16:49] LABS: FREE KAPPA SERUM 183.8 mg/L (3.3-19.4); FREE LAMBDA SERUM 182.9 mg/L (5.7-26.3)
[2016-11-27 18:06] LABS: BETA 1 GLOBULIN 0.3 g/dL (0.4-0.6); BETA 2 GLOBULIN 0.5 g/dL (0.2-0.5)
== END 2016-11-24 14:46 | disposition hospice, inpatient (51) | DRG 871 ==
LOC: ED 21:11 → ERH 23:44 → 2RNO 11-20 01:48 → 3RSO 11-21 16:51
PROVIDERS: ADMIT Internal Medicine; ATTEND Internal Medicine
PROC: 3E0F7GC Introduction of Other Therapeutic Substance into Respiratory Tract, Via Natural or Artificial Opening (ICD-10-PCS; 2016-11-20)
PROC: 0J9P3ZZ Drainage of Left Lower Leg Subcutaneous Tissue and Fascia, Percutaneous Approach (ICD-10-PCS; 2016-11-21)
PROC: 0FB13ZX Excision of Right Lobe Liver, Percutaneous Approach, Diagnostic (ICD-10-PCS; principal; 2016-11-23 12:00)
DX: A41.9 Sepsis, unspecified organism (principal); J18.9 Pneumonia, unspecified organism; N17.9 Acute kidney failure, unspecified; J90 Pleural effusion, not elsewhere classified; E87.0 Hyperosmolality and hypernatremia; R64 Cachexia; C78.7 Secondary malignant neoplasm of liver and intrahepatic bile duct; C80.1 Malignant (primary) neoplasm, unspecified; E87.2 Acidosis; L03.119 Cellulitis of unspecified part of limb; G30.9 Alzheimer's disease, unspecified; F02.80 Dementia in other diseases classified elsewhere, unspecified severity, without behavioral disturbance, psychotic disturbance, mood disturbance, and anxiety; D64.9 Anemia, unspecified; I48.91 Unspecified atrial fibrillation; R65.20 Severe sepsis without septic shock; K21.9 Gastro-esophageal reflux disease without esophagitis; I10 Essential (primary) hypertension; M79.81 Nontraumatic hematoma of soft tissue; E78.5 Hyperlipidemia, unspecified; K59.00 Constipation, unspecified; R63.0 Anorexia; R79.1 Abnormal coagulation profile; E83.52 Hypercalcemia; E86.0 Dehydration; Z74.01 Bed confinement status